=== PATIENT | female | born 1960 | race Caucasian/White ===

== ENCOUNTER 2025-03-22 19:27 | Inpatient (IN) | payer OTHER, MEDICARE, SELFPAY ==
[2025-03-22] VITALS (15 sets, daily range): BP systolic 100–174; BP diastolic 68–100
--- NOTE | 2025-03-22 17:36 | ED.GENMED ---
History of Present Illness
General
Chief Complaint: Change in Mental Status
Source: patient and ambulance crew
Exam Limitations: altered mental status
Time Seen by Provider: 03/22/25 17:32
Nursing documentation reviewed up to this point in time: agreed with
History of Present Illness
History of Present Illness:
Patient presents to the emergency department secondary to mental status change, noted by her friends. Per paramedics, when arrived at scene, patient was lying in her bed, surrounded by her friends. Her friends informed paramedics that patient does
drink daily, sometimes heavily. Last night, she did have alcohol with her friends. During that time, friends told paramedics that she appeared to be more confused. When friends called patient at home, there was no response. Friends came to
patient's house and broken, and that is when they found the patient minimally responsive, lying in her bed. 911 was called at that time. When medics arrived at scene, patient was alert and awake, but confused and not responding appropriately to
any questions and uncooperative. Upon arrival, patient is alert and awake, but moaning, and unable to answer any questions. There is spontaneous upper and lower extremity movement noted.
Review of Systems
Review of Systems
Allergies reviewed?: Yes
Unable to obtain full review of systems at this time due to: due to acuity
All Other Systems: Not applicable
Phy Exam
Physical Exam
Physical Exam:
Physical Exam
General: mil distress, not acutely ill. afebrile. confused, uncooperative
Head: nc/at
Neck: supple. no meningeal signs
Heart: s1/s2 regular rate and rhythm, no murmur
Lungs: no acute respiratory distress. clear bilaterally
Abdomen: normal bowel sounds. no distention
Neuro: alert and awake. spontaneous UE/LE movements noted
Skin: ecchymosis noted over left midback
Psychiatric: uncooperative
Extremities: no edema.
Course
Orders/Labs/Results
Orders:
Orders
03/22/25 Dinner
NPO
Allow oral meds: No
Allow clear liquids: No
03/22/25 17:33
Electrocardiogram (*1) Urgent
Reason for Study: QTc Monitoring
CT Head W/o Iv Contrast Urgent
Comment:
Reason For Exam: mental status change
EKG- Treatment ONCE
Lorazepam [Ativan] 0.5 mg IV NOW STA
03/22/25 17:34
Straight cath- Treatment ONCE
0.9% Sodium Chloride 500 ml [Nss] 500 ml IV BOLUS
03/22/25 17:36
Alcohol Urgent
Complete Blood Count/With Diff Urgent
Comprehensive Metabolic Panel Urgent
Free T4 Urgent
Comment: ADD ON
Magnesium Urgent
PTT Urgent
Prothrombin Time Urgent
TSH Urgent
Restraints - Non Violent As Directed
Justification-Patient:: 2-Protective Intervention
Restraint Type-: Soft Limb-L&R Wrist/4rail
Apply From (date): 03/22/25
Apply from (time): 17:36
Remove (date): 03/23/25
Remove (time): 23:59
03/22/25 17:47
0.9% Sodium Chloride [Nss (Preservative Free)] 0.25 ml IV NOW STA
03/22/25 18:19
COVID-19 Antigen Urgent
Source: Nasal Swab
Influenza A+B Rapid Molecular Urgent
CLAIRE Source: Nasal Swab
Specimen Description:
03/22/25 18:30
3% Sodium Chloride 100 ml [Sodium Chloride 3%] 100 ml IV ONCE
03/22/25 18:35
Potassium Chloride [KCl] 40 meq 0.9% Sodium Chloride 250 ml [Nss] 250 ml IV NOW
03/22/25 18:36
Magnesium Sulfate 1 grams 0.9% Sodium Chloride 100 ml [Nss] 100 ml IV NOW
03/22/25 18:38
CR Chest Portable - 1 View Urgent
Comment:
Reason For Exam: cough/sob/hypoxia
Reason Study Needs to be Portable: Patient Unstable
03/22/25 18:39
Add On- LAB Urgent
Tests Added?: Free T4
03/22/25 18:49
Ammonia Urgent
03/22/25 18:58
Admit/Transfer Patient As Directed
Co-Sign Provider:
Level of Care: Inpatient admission
Assign to:: ICU
Physician / Group: leelee
Diagnosis: hyponatremia
Reason for Hospitalization: hyponatremia
Expected length of stay greater than two midnights?: Yes
ELOS- Estimated Length of Stay in days: 2
I certify the patient meets the requirements for IP care: Yes
Code Status As Directed
Resuscitation Status: Full Code
PRN Pain Medication Management As Directed
May give lesser potent ordered pain med per pt: Yes
preference::
Protocol:: Medication orders for pain may be administered in a
manner that supports deferring to patient preference
when the pt is:
- Requesting an ordered lesser potent pain medication.
Least to most potent pain medications are defined
as: acetaminophen < NSAID < tramadol < opioids
(morphine, oxycodone, hydromorphone).
- Requesting a lesser dose of the same medication IF
ORDERED.
- Requesting a less intrusive route of administration
if both routes are prescribed by the provider (PO <
IV).
03/22/25 19:10
Urinalysis Reflex To Culture Urgent
Date Specimen was Collected: 03/22/25
Time Specimen was Collected: 19:07
Urine Drug Abuse Screen Urgent
Date Specimen was Collected: 03/22/25
Time Specimen was Collected: 19:07
Urine Microscopic Reflex Cult Urgent
Urine Osmolality Random [Osmolality, Random Urine] Urgent
Date Specimen was Collected: 03/22/25
Time Specimen was Collected: 19:08
Urine Sodium Urgent
Date Specimen was Collected: 03/22/25
Time Specimen was Collected: 19:08
03/22/25 19:33
Arterial Blood Gas Urgent
%Oxygen/Room Air: 5L
03/22/25 21:03
0.9% Sodium Chloride [Nss (Preservative Free)] See Protocol IV PRN PRN
FOLic ACID [Folvite] 1 mg 0.9% Sodium Chloride 50 ml [Nss] 50 ml IV DAILYPRN
Lorazepam [Ativan] 1 mg IV Q1HPRN PRN
Lorazepam [Ativan] 1 mg PO Q2HPRN PRN
Lorazepam [Ativan] 2 mg IV Q1HPRN PRN
Thiamine Injection 200 mg IV Q12
03/22/25 21:03
Design Printing Machine Setter Consult Routine
Consulting Provider: Khai Thomas
Was physician already notified: Yes
NEPHROLOGY CONSULT Routine
Consulting Provider: Gerardo Reid
Was physician already notified: Yes
Uric Acid Routine
Activity As Directed
Activity Level: As Tolerated
MSAS SCORE As Directed
MSAS Score 0-4: Repeat MSAS every 2 hours until 0-4 for three consecutive assessments, then every 4 hours x 48
hours.
MSAS Score 5-7: For MILD withdrawl symptoms. Repeat MSAS and RASS every 2 hours
MSAS Score 8-11: For MODERATE withdrawal symptoms. Repeat MSAS and RASS every 1 hour. Consider ICU or IMU
level of care.
MSAS Score > 11: For SEVERE withdrawal symptoms. Repeat MSAS and RASS every 1 hour. Notify provider, consider
ICU level of care.
MSAS Additional Instructions: If no improvement or no decrease in score from severe to moderate within 12
hours, consult psychiatry
MSAS Notify Provider: Notify provider if patient requires more than 10 mg of Lorazepam in eight hour period.
Pneumatic Compression Sleeves As Directed
Type: Knee high
Vital Signs As Directed
Frequency: Per unit guidelines
DX Deep Vein Thrombosis Video Routine
03/23/25 00:00
BMP [Basic Metabolic Panel] Q6
03/23/25 06:00
BMP [Basic Metabolic Panel] Q6
Complete Blood Count/With Diff IN AM
Comprehensive Metabolic Panel IN AM
Cortisol, Random IN AM
03/23/25 08:00
FOLic ACID [Folvite] 1 mg PO DAILY
03/23/25 12:00
BMP [Basic Metabolic Panel] Q6
03/25/25 20:00
Thiamine HCl [Vitamin B1] 100 mg PO BID
Abnormal Lab Results
03/22/25 03/22/25 03/22/25
17:36 18:49 19:10
WBC 11.6 H 10^3/uL
(4.8-10.8)
RBC 3.74 L 10^6/uL
(4.20-5.40)
Hct 36.0 L %
(37.0-47.0)
MCH 38.0 H pg
(27.0-31.0)
MCHC 39.4 H g/dL
(33.0-37.0)
RDW 10.5 L %
(11.5-14.5)
Abs Immat Gran (auto) 0.1 H 10^3/uL
(0-0.05)
Absolute Neuts (auto) 9.9 H 10^3/uL
(1.4-6.5)
Absolute Lymphs (auto) 0.4 L 10^3/uL
(1.2-3.4)
Absolute Monos (auto) 1.2 H 10^3/uL
(0.1-0.6)
Neutrophils % 85.7 H %
(42.2-75.2)
Lymphocytes % 3.4 L %
(20.5-51.1)
Monocytes % 10.3 H %
(1.7-9.3)
Sodium 110 L* mmol/L
(135-145)
Potassium 2.6 L* mmol/L
(3.5-5.1)
Chloride 66 L mmol/L
(98-107)
Glucose 166 H mg/dl
(70-99)
Magnesium 1.4 L mg/dl
(1.6-2.3)
AST 143 H U/L
(14-36)
ALT 68 H U/L
(0-35)
Ammonia < 9 L umol/L
(9-30)
Albumin 5.1 H g/dl
(3.5-5.0)
TSH 0.10 L uIU/ml
(0.47-4.68)
Urine Ketones 3+ A
(Negative)
Ur Occult Blood Reflex 4+ A
(Negative)
Urine Albumin (Reflex) 4+ A
(Neg - Trace)
03/22/25 17:36
03/22/25 17:36
Vital Signs
Initial and Last Documented VS:
Initial Vital Signs
Pulse Resp BP
99 24 129/87
03/22/25 17:29 03/22/25 17:29 03/22/25 17:29
Last Documented Vital Signs
Temp Pulse Resp BP Pulse Ox
97.9 F 94 24 104/71 85
03/22/25 20:59 03/22/25 20:30 03/22/25 20:30 03/22/25 20:00 03/22/25 20:30
MDM/Problems Addressed
MDM/Problems Addressed:
History, exam, and blood work concerning for acute mental status change likely secondary to severe electrolyte abnormalities, i.e. hyponatremia, hypokalemia, hypomagnesemia. 3% hypertonic solution ordered immediately, along with repletion of
potassium and magnesium. Patient will be admitted to ICU for further evaluation and treatment. Patient is high risk for developing seizure and/or worsening mental status.
Nephrology, , notified via [facility]
Critical care statement: A total of 40 minutes of critical care time was provided for this patient. This includes management of unstable vital signs, evaluation of the patient at bedside, reviewing the patient's pertinent medical records, discussion
with consultants, review of old EKGs and review of pertinent medical records. This time with separate from time utilized to perform the aforementioned documented procedures
*EKG
Interpreted by ED Provider?: Yes
EKG Intrepretation Date: 03/22/25
Heart Rate: 91
Rate: normal
Rhythm: sinus
[place]: normal axis
Interval: normal interval
*Critical Care Note
Total Time (30-74mins, 75-104mins- exclusive of procedures): 40 min
ED Attending Note
-
Portions of this chart may have been created with voice recognition software.� Occasional wrong word or��sound alike� substitutions may have occurred due to the inherent limitations of voice recognition software.
Discharge Plan
Departure
Patient Disposition: Admit
Date of Disposition: 03/22/25
Time of Disposition: 18:34
Admit to: ICU
Presentation/result/management discussed w/ accepting MD/DO: Hospitalist
Discharge Problem:
Hyponatremia, Hypokalemia, Altered mental status, Chronic alcoholism
Interventions
Interventions:
*Risk Screen - Suicide Last Done: 03/22/25 21:14
*General Assessment Last Done: 03/22/25 17:57
*Neglect/Abuse Screening Last Done: 03/22/25 17:57
*ED- Fall Risk Assessment Last Done: 03/22/25 17:57
*ED COVID-19 Vaccine History Last Done: 03/22/25 17:57
*Nursing Disposition Last Done: 03/22/25 21:14
ED- Pulmonary Assessment Last Done: 03/22/25 17:57
ED-Psychological Assessment Last Done: 03/22/25 21:15
ED- Neurological Assessment Last Done: 03/22/25 17:57
ED- Cardiac Assessment Last Done: 03/22/25 17:57
ED Swallowing Screen Last Done: 03/22/25 21:16
Discharge Date and Time
Discharge Date/Time: 03/22/25 21:00
[2025-03-22 17:59] LABS: APTT 30.2 Sec (23.4-35.0); INR 1.04; PT 13.9 Sec (11.4-14.6)
[2025-03-22 18:15] LABS: ALT (SGPT) 68 U/L (0-35); AST (SGOT) 143 U/L (14-36); Albumin 5.1 g/dl (3.5-5.0); Alcohol < 10 mg/dl; Alkaline Phosphatase 85 U/L (38-126); Blood Urea Nitrogen 16 mg/dl (7-17); Calcium 9.5 mg/dl (8.4-10.2); Carbon Dioxide 24 mmol/L (22-30); Chloride 66 mmol/L (98-107); Glucose 166 mg/dl (70-99); Magnesium 1.4 mg/dl (1.6-2.3); Potassium 2.6 mmol/L (3.5-5.1); Sodium 110 mmol/L (135-145); Total Bilirubin 0.9 mg/dl (0.2-1.3); Total Protein 7.7 g/dl (6.3-8.2); eGFR > 60.00
[2025-03-22] MEDS: ATIVAN 0.5 MG IV (18:34)
[2025-03-22] MEDS: NSS 500 IV (18:34)
[2025-03-22] MEDS: NSS (PRESERVATIVE FREE) 0.25 ML IV (18:35)
[2025-03-22] MEDS: SODIUM CHLORIDE 3% 100 IV (18:50)
[2025-03-22] MEDS: KCL 270 MEQ IV ×2 (18:56→23:32)
--- NOTE | 2025-03-22 19:07 | HPS.HSE ---
Family Physician
-
Family Physician: INTERVIEWE UNKNOWN - PT NOT
Chief Complaint
-
confusion
History of Present Illness
64-year-old female past medical history of hyperlipidemia, hypertension, anxiety, presenting with change in mental status noted by her friends. Per paramedics when they arrived at the scene she was lying in her bed surrounded by her friends.
Friends told ski top trimmer that she drinks alcohol daily sometimes heavily. Last night she had alcohol. During that time she appeared to be more confused. When friends called patient's home there is no response. Friends came to the patient's house
and they found her minimally responsive laying in her bed. When ski top trimmer arrived she was awake and alert but confused and not responding appropriately to any questions and was uncooperative. She is moaning here unable to answer questions.
Medical History
Past Medical History
Past Medical History: Reports Other (hyperlipidemia, hypertension, anxiety)
Past Surgical History: Reports None
Social History
Tobacco: Non-smoker
Alcohol: None
Drug: None
Family History
Family History: Not pertinent
Allergies / Home Medications
Allergies reflects when Allergies were last updated in [employer].
Home Medications with original date entered in [employer]
Allergy/Medication List:
Allergies
Allergy/AdvReac Type Severity Reaction Status Date / Time
No Known Allergies Allergy Verified 03/22/25 17:40
Review of Systems
-
History Source: Patient
A 12 point ROS was completed and negative except as noted: Yes
Constitutional: Reports No Symptoms
EENT: Reports No Symptoms
Respiratory: Reports No Symptoms
Cardiac: Reports No Symptoms
Abdomen/GI: Reports No Symptoms
: Reports No Symptoms
Musculoskeletal: Reports No Symptoms
Skin: Reports No Symptoms
Neurological: Reports No Symptoms
Endocrine: Reports No Symptoms
Hematologic/Lymphatic: Reports No Symptoms
Psych: Reports No Symptoms
Physical Exam
Vital Signs
Vital Signs
Temp Pulse Resp BP Pulse Ox
99.9 F 89 24 151/100 92
03/22/25 17:57 03/22/25 18:00 03/22/25 18:00 03/22/25 18:00 03/22/25 18:00
Physical Exam
General: Well Developed, Well Nourished and No Apparent Distress
HEENT: NormoCephalic, Moist mucous membranes and Atraumatic
Respiratory: Clear
Cardiac: S1/S2 and Regular Rhythm; No Murmur or Rub
GI: Soft, Non Tender, Non Distended and Normal Bowel Sounds; No Organomegaly
Rectal: Deferred by Provider
Musculoskeletal: No Clubbing, No Cyanosis and No Edema
Skin: No Rash
Neuro: Nonfocal/grossly intact
Laboratory Results
-
03/22/25 17:36
Laboratory Results
PT 13.9 Sec (11.4-14.6) 03/22/25 17:36
INR 1.04 03/22/25 17:36
APTT 30.2 Sec (23.4-35.0) 03/22/25 17:36
Total Bilirubin 0.9 mg/dl (0.2-1.3) 03/22/25 17:36
AST 143 U/L (14-36) H 03/22/25 17:36
ALT 68 U/L (0-35) H 03/22/25 17:36
Alkaline Phosphatase 85 U/L (38-126) 03/22/25 17:36
Data Reviewed
-
Lab Data: Labs Reviewed by me
Old Records: Reviewed
Impression/Plan
-
IMPRESSION:
PLAN:
# Acute metabolic encephalopathy secondary to severe acute hyponatremia likely from alcohol use
-Patient obtunded but spontaneously breathing and maintaining airway, intermittently awakening but not purposeful
-Was given Ativan by ER
- Sodium of 110
Check urine sodium, osmolality, uric acid, a.m. cortisol
-3% hypertonic saline bolus being given, and need to check BMP afterward before further infusion
- Check BMP every 6 hours
- Check ammonia level, ABG
-Check UDS
- CT head pending
- Soft restraints
- Nephrology consulted
- Monitor in ICU due to high risk of seizures
# Hypoxemia unclear etiology
- Patient desaturated to 85% requiring 5 L oxygen
-Patient appears to be maintaining airway
- Check chest x-ray
- Check ABG
# Hypokalemia secondary to hypomagnesia
# Hypomagnesemia secondary to alcohol use
- Replete magnesium and potassium
# Hyperthyroidism
- TSH of 0.01
- Awaiting free T4
- Will likely need to start methimazole when patient eventually awake
# Transaminitis likely secondary to alcohol
- Continue to monitor
Alcohol use disorder
- Alcohol level less than 10
-Thiamine and folate
- Alcohol withdrawal protocol
Essential hypertension
Anxiety
Full code
DVT prophylaxis�SCDs
N.p.o.
[2025-03-22] MEDS: MAGNESIUM SULFATE 102 GRAMS IV (19:11)
[2025-03-22 19:17] LABS: Ammonia < 9 umol/L (9-30)
[2025-03-22 19:21] LABS: Osmolality Urine 535 mOsm/kg (300-900)
[2025-03-22 19:28] LABS: Hemoglobin 14.2 g/dL (12.0-16.0); Mean Corp Hgb Conc. 39.4 g/dL (33.0-37.0); Mean Corpuscular Volume 96.3 fL (81.0-99.0); Red Blood Cell Count 3.74 10^6/uL (4.20-5.40); White Blood Cell Count 11.6 10^3/uL (4.8-10.8)
[2025-03-22 19:28] LABS: Urine Sodium 34 mmol/L (30-90)
[2025-03-22 19:29] LABS: % Basophils 0.2 % (0-2); % Immature Granulocytes 0.4 % (0-0.5); % Lymphocytes 3.4 % (20.5-51.1); % Monocytes 10.3 % (1.7-9.3); % Neutrophils 85.7 % (42.2-75.2); Absolute Lymphocytes 0.4 10^3/uL (1.2-3.4); Absolute Monocytes 1.2 10^3/uL (0.1-0.6); Absolute Neutrophils 9.9 10^3/uL (1.4-6.5); Mean Platelet Volume 10.3 fL (7.4-10.4); Platelet Count 158 10^3/uL (130-400); Red Cell Dist. Width 10.5 % (11.5-14.5)
[2025-03-22 19:30] LABS: Absolute Immature Granulocytes 0.1 10^3/uL (0-0.05); Nucleated Red Blood Cells % 0 %
[2025-03-22 19:34] LABS: Amphetamines Negative (Negative); Barbiturates Negative (Negative); Benzodiazepines Negative (Negative); Buprenorphine Negative (Negative); Cocaine Negative (Negative); Marijuana Negative (Negative); Methadone Negative (Negative); Methamphetamines Negative (Negative); Opiates Negative (Negative); Phencyclidine Negative (Negative); Tricyclic Antidepressants Negative (Negative)
[2025-03-22 19:37] LABS: Urine Albumin 4+ (Neg - Trace); Urine Bilirubin Negative (Negative); Urine Character Clear (Clear); Urine Color Yellow; Urine Glucose Negative (Negative); Urine Ketone 3+ (Negative); Urine Leukocyte Negative (Negative); Urine Nitrite Negative (Negative); Urine Occult Blood 4+ (Negative); Urine Urobilinogen Negative (Neg - 1+)
[2025-03-22 19:44] LABS: B.E. 1.1 mmol/L; HCO3 25.1 mmol/L (21-28); O2 Saturation % 93.5 % (94-98); PCO2 37 mmHg (32-35); PO2 65 mmHg (83-108); pH 7.44 (7.35-7.45)
[2025-03-22 19:46] LABS: COVID-19 Antigen Negative (Negative)
[2025-03-22 20:08] LABS: Free T4 1.97 ng/dl (0.78-2.19)
[2025-03-22 20:19] LABS: Urine Squamous Cell 21-25 /LPF (Few)
[2025-03-22 20:20] LABS: Urine Red Blood Cell None Seen /HPF (0-2)
[2025-03-22 20:56] LABS: Glucose - Point of Care 130 mg/dl (70-99)
[2025-03-22] MEDS: THIAMINE INJECTION 200 MG IV (21:32)
[2025-03-22] MEDS: MAGNESIUM SULFATE 50 IV (21:33)
--- NOTE | 2025-03-22 23:23 | PTCARENOTE ---
~2315: Patient's with increase WOB. RR 25. SpO2 95% on 5L o2/nc. Crackles /inspiratory /expiratory wheezing. HOTEL DINING ROOM CASHIER made aware and are at the bedside to assess the patient. Neb treatment ordered.
--- NOTE | 2025-03-22 23:26 | PTCARENOTE ---
Patient received in room 3368 ~20:40 mumbling and not making sense. Unable to follow simple commands. MAEx4 and restless. The patient reaches for her oxygen and IV sites. Bilateral soft wrist restraints are in use. Sinus rhythm on the monitor. SBP
>100 with MAP > 65. Palpable pulses throughout. Rhonchi with scattered crackles heard with auscultation. SpO2 at 95% on 5L/o2 nc. occasional moist cough-unproductive. + bowel sound. The patient is incontinent of urine. Patient has at 3x4 inch bruise
to her left medial back, and blanchable redness to her gluteal cleft. Patient cleansed with CHG wipes. Pt's sisters are at the bedside. Plan of care for the shift reviewed with family. Questions encouraged and answered. Pert the patient's sister,
the patient has difficulty with swallowing her food and frequently chokes. As such, family states that the patient does not eat. Pt's family states that the patient 'drinks alot.' The family assisted with admission questions. Bed alarm in use.
[2025-03-22] MEDS: DUONEB 3 ML INH (23:27)
[2025-03-22 23:59] LABS: Blood Urea Nitrogen 16 mg/dl (7-17); Calcium 8.6 mg/dl (8.4-10.2); Carbon Dioxide 24 mmol/L (22-30); Chloride 76 mmol/L (98-107); Glucose 111 mg/dl (70-99); Phosphorus 1.9 mg/dl (2.5-4.5); Potassium 3.4 mmol/L (3.5-5.1); Sodium 113 mmol/L (135-145); eGFR > 60.00
[2025-03-23] VITALS (21 sets, daily range): BP systolic 106–160; BP diastolic 74–99
--- NOTE | 2025-03-23 00:09 | PTCARENOTE ---
Patient reassessed. Remains unable to follow commands. Drowsy but opens eyes to verbal commands. Lab resulted. CNA aware of result. Pt's sister, Oly updated via the phone. Second bag of kcl 40 meq rider is infusing.
[2025-03-23] MEDS: DDAVP 50.5 MCG IV ×2 (00:35→11:08)
--- NOTE | 2025-03-23 00:37 | PTCARENOTE ---
Ddavp 2 mcg in NSS ordered for Sodium of 113. Sodium chloride 3% to be initiated post DDAVP at 0200.
--- NOTE | 2025-03-23 01:00 | W.PN.UPDATE ---
Addendum entered and electronically signed by BHAVNA Austin 03/23/25 06:06:
0600- Discussed BMP results with haulpak driver Laurel Felder 118 from 113. Hypertonic saline stopped; recommendations received: D5W IVF bolus 500cc, repeat BMP at 10:00am. Patient now conversing and more alert, no longer obtundent.
Original Note:
Update Note
Progress Note Update
03/23/25-
0000- Discussed BMP results with haulpak driver Laurel Mancilla 113 from 110. Recommendations received: will order 2mcg of DDAVP, 1 hour after DDAVP administration will initiate hypertonic 3% saline solution at 20cc/hr, and follow serial BMPs
trending sodium. Goal of sodium correction in 24 hours on 03/23/25 at 5pm is ~117. Updated RN with orders and plan of care.
[2025-03-23] MEDS: SODIUM CHLORIDE 3% 250 IV (02:28)
--- NOTE | 2025-03-23 04:53 | PTCARENOTE ---
Patient reassessed. drowsy but aaox3. Patient's asking questions regarding whereabouts and reasoning for hospitalization. Patient orient to situations. Medications being administered reviewed with the patient. Pt verbalized concerns for
hypertension. Assured the patient that her blood pressures has been wdl thus far. Labs drawn and sent. VSS on the monitor. Remains on 5L o2 nc.Restraints remain in use.
[2025-03-23 05:55] LABS: ALT (SGPT) 58 U/L (0-35); AST (SGOT) 127 U/L (14-36); Alkaline Phosphatase 69 U/L (38-126); Blood Urea Nitrogen 16 mg/dl (7-17); Calcium 8.7 mg/dl (8.4-10.2); Carbon Dioxide 22 mmol/L (22-30); Chloride 84 mmol/L (98-107); Glucose 103 mg/dl (70-99); Magnesium 2.2 mg/dl (1.6-2.3); Phosphorus 1.5 mg/dl (2.5-4.5); Potassium 3.4 mmol/L (3.5-5.1); Sodium 118 mmol/L (135-145); Total Bilirubin 0.6 mg/dl (0.2-1.3); Total Protein 6.3 g/dl (6.3-8.2); eGFR > 60.00
[2025-03-23 06:09] LABS: Cortisol, Random 41.8 ug/dl
[2025-03-23] MEDS: D5W 500 IV (06:17)
[2025-03-23] MEDS: POTASSIUM PHOSPHATE 259.0909 MEQ IV ×2 (06:30→18:00)
[2025-03-23 06:31] LABS: Hematocrit 33.7 % (37.0-47.0); Hemoglobin 13.4 g/dL (12.0-16.0); Mean Corp Hgb Conc. 39.8 g/dL (33.0-37.0); Mean Corpuscular Hgb 38.1 pg (27.0-31.0); Mean Corpuscular Volume 95.7 fL (81.0-99.0); Red Blood Cell Count 3.52 10^6/uL (4.20-5.40); White Blood Cell Count 10.4 10^3/uL (4.8-10.8)
--- NOTE | 2025-03-23 06:31 | PTCARENOTE ---
Patient's labs resulted. Sodium 118, potassium 3.4, and phosphorus 1.5. D5w 500 ml bolus and potassium phosphate 40 meq rider ordered.
[2025-03-23 06:32] LABS: Mean Platelet Volume 10.1 fL (7.4-10.4); Platelet Count 126 10^3/uL (130-400); Red Cell Dist. Width 10.7 % (11.5-14.5)
[2025-03-23 06:34] LABS: % Basophils 0.2 % (0-2); % Immature Granulocytes 0.4 % (0-0.5); % Lymphocytes 5.5 % (20.5-51.1); % Monocytes 10.5 % (1.7-9.3); % Neutrophils 83.4 % (42.2-75.2); Absolute Lymphocytes 0.6 10^3/uL (1.2-3.4); Absolute Monocytes 1.1 10^3/uL (0.1-0.6); Nucleated Red Blood Cells % 0 %
[2025-03-23] MEDS: FOLVITE 50.2 MG IV (07:42)
[2025-03-23] MEDS: FOLVITE PO (07:42)
[2025-03-23] MEDS: THIAMINE INJECTION 200 MG IV ×2 (07:42→19:39)
--- NOTE | 2025-03-23 08:13 | PTCARENOTE ---
Addendum entered by Kenia Lindquist RN 03/23/25 08:15:
pt able to follow commands and TEJADA.
Original Note:
pt received from previous rn- drowsy, arouses to tactile. able to say name and she's at hospital, disoriented to situation, intermittently answers questions appropriately, confused at times. pt nsr on monitor, 5LNC, pt with nonproductive moist
cough, crackles and wheezes on auscultation. pt reoriented. all safety precautions in place. bed alarm on and functioning. pt turned and repositioned, oral and incontinence care provided.
--- NOTE | 2025-03-23 08:16 | CON.INTV ---
Consultation
Consultation Request
Date/Time Consultation Requested: 03/22/20252102
Date/Time Consultation Performed: 03/23/2025812
Requesting Provider: Dr. Louis
Performing Provider: Dr. Thomas
Reason for Consultation: Hyponatremia
Medical History
-
Chief Complaint: Altered mental status
History of Present Illness:
64-year-old female with a past medical history of alcohol use disorder, hypertension, hypercholesterolemia, former tobacco smoker, anxiety and seasonal allergies who presents with change in mental status. Neighbors were unable to get hold of the
patient since the night prior and she was found in bed incontinent of urine and speaking incoherently. Per the patient's sister, the patient had called UTI this past week. When she was in the ER, she was moaning and unable to answer questions.
Initially, she was afebrile to 99.9 �F, pulse rate 99, respiratory rate 24, BP 129/87 and saturating 91% on 5 L/min nasal cannula. Initial labs were pertinent for WBC 11.6, sodium 110, potassium 2.6, magnesium 1.4, TSH 0.1, free T41.97, and
urinalysis with +3 ketones; UDS was negative, alcohol level was negative and COVID-19 antigen also negative. Flu swab was negative. CT head showed no acute intracranial abnormality, and CXR also showed no acute cardiopulmonary process. In the ER
she was given 500 cc bolus of NS 0.9%, 100cc of 3% NS, magnesium, potassium and Ativan. She was admitted to the ICU for further care and Surgical Scheduler services consulted for additional management/recommendations.
When I saw the patient this morning, she was resting in bed in no acute distress. Heart rate 86, BP 150/99 and saturating 93% on room air. Her 2 sisters, Asya and Oly, were at bedside and also the patient's [id number]. All questions were
answered. Patient lives alone and per the family she drinks daily. She is a functional alcoholic as she has a good job that the patient takes seriously at a [employer]. Patient is currently lethargic but easily arousable to voice and
answers questions with quickly falls back asleep and she is confused.
PMHx: Hypertension, alcohol use disorder, hypercholesterolemia, anxiety, seasonal allergies
PSHx: D&C (1990)
Past Medical History
Past Medical History: Other (Above as per HPI)
Past Surgical History: Other (Above as per HPI)
Social History
Tobacco: Former Smoker
Alcohol: Daily
Drug: None
Employment: Employed (Works at a [employer])
Family History
Family History: CAD (Father), Cancer (Father: Prostate cancer) and Other (Mother: COPD)
Allergies / Home Medications
Allergies
Allergy/AdvReac Type Severity Reaction Status Date / Time
No Known Allergies Allergy Verified 03/22/25 17:40
Home Medications
�Medication �Instructions �Recorded �Confirmed �Last Taken �Type
atenolol 50 mg tablet 100 mg PO DAILY 03/22/25 03/22/25 Unknown History
hydrochlorothiazide 25 mg tablet 25 mg PO DAILY 03/22/25 03/22/25 Unknown History
ondansetron HCl 8 mg tablet 8 mg PO Q8H PRN nausea 03/22/25 03/22/25 Unknown History
paroxetine HCl 10 mg tablet 10 mg PO DAILY 03/22/25 03/22/25 Unknown History
simvastatin 40 mg tablet 40 mg PO QPM 03/22/25 03/22/25 Unknown History
Review of Systems
-
Unable to Obtain full review of systems at this time due to: Acuity
Vitals / Labs / Diagnostic Testing
Vital Signs
Temp Pulse Resp BP Pulse Ox
97.6 F 92 19 137/88 95
03/23/25 07:20 03/23/25 09:00 03/23/25 09:00 03/23/25 09:00 03/23/25 09:00
Lab Data
03/23/25 05:04
Laboratory Results
03/22/25 03/22/25
17:36 19:33
PT 13.9
INR 1.04
APTT 30.2
pH 7.44
pCO2 37 H
pO2 65 L
HCO3 25.1
O2 Delivery Level
Microbiology
03/22/25 18:19 Nasal Swab Influenza Types A & B (JANA) - Final
Negative for Influenza A & B, NAAT
Negative results must be combined with clinical observations
and patient history.
Nucleic Acid Amplification test (NAAT)performed on the
[employer] NOW platform.
Diagnostic Testing:
Physical Exam
-
HEENT: Normocephalic and Anicteric
Cardiovascular: S1/S2 and Peripheral Edema (negative)
Respiratory: Wheeze ([place] upon expiration bilaterally), Rhonchi (negative) and Other (Coarse breath sounds heard bilaterally)
GI: Soft, Non Distended, Non Tender and Normal Bowel Sounds
Neurology: Tremors (negative) and Other (Lethargic although easily arousable to voice and answering questions - confused)
Skin: Warm and Dry
General: Respiratory Distress (negative), Comfortable, Fever (negative) and Chills (negative)
Assessment
-
Assessment: 64-year-old female with a past medical history of alcohol use disorder, hypertension, hypercholesterolemia, former tobacco smoker, anxiety and seasonal allergies who presents with change in mental status. Neighbors were unable to get
hold of the patient since the night prior and she was found in bed incontinent of urine and speaking incoherently. Per the patient's sister, the patient had called UTI this past week. When she was in the ER, she was moaning and unable to answer
questions. Initially, she was afebrile to 99.9 �F, pulse rate 99, respiratory rate 24, BP 129/87 and saturating 91% on 5 L/min nasal cannula. Initial labs were pertinent for WBC 11.6, sodium 110, potassium 2.6, magnesium 1.4, TSH 0.1, free T41.97,
and urinalysis with +3 ketones; UDS was negative, alcohol level was negative and COVID-19 antigen also negative. Flu swab was negative. CT head showed no acute intracranial abnormality, and CXR also showed no acute cardiopulmonary process. In the
ER she was given 500 cc bolus of NS 0.9%, 100cc of 3% NS, magnesium, potassium and Ativan. She was admitted to the ICU for further care and Surgical Scheduler services consulted for additional management/recommendations.
Chronic conditions SUPERINTENDENT OVERHEAD DISTRIBUTION: Hypertension, alcohol use disorder, hypercholesterolemia, anxiety, seasonal allergies
Impression:
#Severe hyponatremia likely due to beer potomania
#Acute thrombocytopenia
#Hypokalemia
#Transaminitis
#Subclinical hyperthyroidism vs central hypothyroidism (more likely the latter given this acute stressful state with severe hyponatremia)
#Starvation ketosis
#Recent URI & UTI (per the family)
#Acute respiratory failure with hypoxia on supplemental oxygen displaced likely due to recent URI in the setting of ?COPD
#Alcohol use disorder
#Former tobacco smoker
Plan:
- Patient's admission sodium was 110 - she was given 3% NS in the ER and also on the social and political studies professor hours of 03/23/2025 --> she is much more awake now than she was on ER arrival
- Continue to slowly correct sodium with goal <8-10mmol/L in 24 hrs, and <14-16mmol/L in 48 hrs
- Given that her Na is 117 today (03/23), nephro is giving dDAVP and starting D5W at 80cc/hr to prevent over-correction
- Continue serial chemistries
- Replete electrolytes with K>3.5, Mg>1.8
- Maintain SpO2 >88% using supplemental oxygen
- Suspected that she has COPD given her tobacco smoking history
- She is currently wheezing and per family she had upper respiratory infection this past week
- No consolidation seen on CXR. WBC is now normal. Continue to monitor off antibiotics however if she spikes a fever then consider starting empiric antibiotics at that time with panculture
- Start scheduled DuoNebs with q4hr prn DuoNebs for breakthrough symptoms
- If wheezing persists and/or hypoxia worsens or fails to improve, then would start systemic steroids at that time
- Recommend outpatient pulmonary office follow-up for full PFTs
- Given the patient's daily alcohol use with risk of withdrawal seizure, start phenobarbital protocol
- Continue MSAS
- Continue thiamine + folic acid
- [facility] should speak with her after mentation normalizes
- Re-check TSH in few days to assure it is improving
- Trend LFTs
- Maintain MAP>65
- Maintain euglycemia with goal BG 140-180; check A1C
- Trend H/H and transfuse if needed to keep Hb>7g/dL; keep plt>20k, unless there is concern for bleeding then keep plt>50k
- DVT ppx: Start LMWH
Continue ICU level of care for this critically ill patient.
Critical care statement: A total of 38 minutes of critical care time was provided for this patient today. This includes management of unstable vital signs, evaluation of the patient at bedside, reviewing the patient's pertinent medical records
including radiographs, microbiology, laboratory evaluations, and discussion with primary team, consultants, pharmacy, nutrition, physical therapy, case management, charge nurse, critical care nursing, and respiratory therapy.
--- NOTE | 2025-03-23 09:37 | CM ---
Received consult for alcohol withdraw risk. Placed a call to patient's sister as patient is not oriented and is not participating with her care at this time. Patient's sister stated that patient lives alone in a one floor apartment, first floor, no
steps to enter. She is independent with all of her ADLs, personal care, bathing and dressing. She can ambulate without device. 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 Patient drives and can get to all of her appointments and does all
of her own shopping. 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 She does have friends and family who are close and supportive neighbors. Her son, Keshav, Nadine is living in [place]
but will be coming in to see patient early this week. His Phone# is [phone]. Per patient's sister he is aware of patient's condition and understands the extent of her ETOH dependance. Per patient's sister, family has tried to intervene in the
past to get patient some help however she denies the severity of her symptoms and has never been in agreement for treatment.
Patient has never had VN services.
Patient has never been to a SNF or rehab center.
Patient has a prescription plan. Will need to confirm pharmacy.
Her PCP information has yet to be obtained.
Patient's sister was advised of resources that may be able to assist with patient and discussed [facility] program which her sister sounded hopeful but not very optimistic. She stated that she would like to talk to patient and her son, once she is able
to be able to discuss her own care. She and patient's son will also speak with her to attempt to get treatment this time.
Plan: Case management will continue to follow and assist with discharge planning. Will connect patient with resources for ETOH.
[2025-03-23 09:40] LABS: Blood Urea Nitrogen 14 mg/dl (7-17); Carbon Dioxide 24 mmol/L (22-30); Chloride 83 mmol/L (98-107); Glucose 131 mg/dl (70-99); Potassium 3.3 mmol/L (3.5-5.1); Sodium 117 mmol/L (135-145); eGFR > 60.00
--- NOTE | 2025-03-23 10:25 | PTCARENOTE ---
Dr. Reid at bedside, plan of care discussed, aware of labs- ordered to insert monzon for I and O, monzon inserted without difficulty, draining yellow urine. Dr. Curiel aware of labs as well. pt turns and repositions. remains forgetful.
--- NOTE | 2025-03-23 10:47 | W.CON.NEPH ---
Consultation
-
Date/Time Consultation Requested: March 22, 2025 at 2100
Date/Time Consultation Performed: March 23, 2025 at 9 AM
Requesting Provider: Dr. Louis
Performing Provider: Dr. Reid
Reason for Consultation: Hyponatremia
Medical History
-
Chief Complaint: Hyponatremia
History of Present Illness:
64-year-old female past medical history of hyperlipidemia, hypertension, anxiety, presenting with change in mental status noted by her friends. Per paramedics when they arrived at the scene she was lying in her bed surrounded by her friends.
Friends told crate tier that she drinks alcohol daily sometimes heavily. Last night she had alcohol. During that time she appeared to be more confused. When friends called patient's home there is no response. Friends came to the patient's house
and they found her minimally responsive laying in her bed.
Renal consult for symptomatic hyponatremia of 110
Given 3% saline mental status has improved
Past Medical History
Hyperlipidemia, hypertension, anxiety, alcohol abuse
Social History
Alcohol: Chronic Alcoholic
Family History
Family History: Not Pertinent
Allergies / Home Medications
Allergy/AdvReac Type Severity Reaction Status Date / Time
No Known Allergies Allergy Verified 03/22/25 17:40
�Medication �Instructions �Recorded �Confirmed �Type
atenolol 50 mg tablet 100 mg PO DAILY 03/22/25 03/22/25 History
hydrochlorothiazide 25 mg tablet 25 mg PO DAILY 03/22/25 03/22/25 History
ondansetron HCl 8 mg tablet 8 mg PO Q8H PRN nausea 03/22/25 03/22/25 History
paroxetine HCl 10 mg tablet 10 mg PO DAILY 03/22/25 03/22/25 History
simvastatin 40 mg tablet 40 mg PO QPM 03/22/25 03/22/25 History
Review of Systems
-
Lethargic but awake has no complaint
All other systems: Negative unless noted
Physical Exam
Vital Signs
Vital Signs
Temp Pulse Resp BP Pulse Ox
97.6 F 92 19 137/88 95
03/23/25 07:20 03/23/25 09:00 03/23/25 09:00 03/23/25 09:00 03/23/25 09:00
Lab Results
WBC 10.4 10^3/uL (4.8-10.8) 03/23/25 05:04
RBC 3.52 10^6/uL (4.20-5.40) L 03/23/25 05:04
Hgb 13.4 g/dL (12.0-16.0) 03/23/25 05:04
Hct 33.7 % (37.0-47.0) L 03/23/25 05:04
Plt Count 126 10^3/uL (130-400) L D 03/23/25 05:04
eGFR Cancelled 03/23/25 12:00
Phosphorus 1.5 mg/dl (2.5-4.5) L 03/23/25 05:04
Albumin 4.0 g/dl (3.5-5.0) 03/23/25 05:04
Physical Exam
General no acute distress
HEENT no cephalic atraumatic extraocular muscle intact no scleral icterus no JVD neck supple
lungs clear to auscultation bilateral
heart regular S1-S2 positive
abdomen soft nontender positive bowel sounds
extremities no edema pulses present bilateral
Neurologically nonfocal
Skin no lesions no abrasions no petechiae
Psych flat
Data Reviewed
-
Radiology: Image Personally Visualized and interpreted
Labs: Labs Reviewed by me, Discussed with Physician and Discussed with Patient
Assessment/Plan
-
64-year-old female past medical history of hyperlipidemia, hypertension, anxiety, presenting with change in mental status noted by her friends. Per paramedics when they arrived at the scene she was lying in her bed surrounded by her friends.
Friends told crate tier that she drinks alcohol daily sometimes heavily. Last night she had alcohol. During that time she appeared to be more confused. When friends called patient's home there is no response. Friends came to the patient's house
and they found her minimally responsive laying in her bed.
Hyponatremia 110
Impression.
Severe hyponatremia 110 secondary to alcohol abuse
Hypokalemia
Altered mental status
Alcohol abuse
Hypertension
Plan
Admitting sodium 110 at 5 PM 03/22/2025
Sodium 117 at 9 AM 03/23/2025
DDAVP given 11 PM on 03/22/2025
Will dose DDAVP again today
D5W slow infusion at 60 cc/h
Maximum goal of correction 6-8 millimoles per liter over the first 24-hour (5 PM 03/23/2025)
Patient at high risk for ODS
Continue BMPs every 4 hours
Discussed with critical care nursing as to plan

45-minute spent in critical time
[2025-03-23] MEDS: D5W 1000 IV (11:08)
--- NOTE | 2025-03-23 11:15 | W.PN.HOSP.TC ---
Today's Communication/Plan
-
continue IVF supplement
Nephrology managing fluid replacement
diet to start once more awake
Assessment / Plan
Assessment / Plan
# Acute metabolic encephalopathy secondary to severe acute hyponatremia likely from alcohol use
-Patient currently awake (was noted to be obtunded on admission)
-Was given Ativan by ER
- Sodium of 110-->113-->118-->117
nephrology in consult
Uric Acid 9.0
-3% hypertonic saline bolus was given, now on D5W as per nephrology
- Check BMP every 6 hours
- Check ammonia level, ABG
-Check UDS
- CT head: No acute intracranial abnormality noted.
- Soft restraints
- Monitor in ICU due to high risk of seizures
# Hypoxemia unclear etiology
- Patient desaturated to 85% requiring 5 L oxygen
-Patient appears to be maintaining airway
- chest x-ray: No acute cardiopulmonary process.
- ABG: PCO2 37/pO2 65
# Hypokalemia secondary to hypomagnesia
# Hypomagnesemia secondary to alcohol use
- Replete magnesium and potassium
# Hyperthyroidism
- TSH of 0.1
- free T4 1.97
- Consider starting methimazole when patient eventually awake
# Transaminitis likely secondary to alcohol
- Continue to monitor
Alcohol use disorder
- Alcohol level less than 10
-Thiamine and folate
- Alcohol withdrawal protocol
Essential hypertension
Anxiety
Full code
DVT prophylaxis�SCDs
N.p.o. resume diet when pt more awake
Anticipated Discharge: > 48 hours
Subjective/Interval History
-
Date of Service: March 23, 2025
No obvious distress
Objective Data
-
Labs:
Laboratory Results
05/02/1103/23/25 03/23/25
23:19 05:04 05:04
WBC 10.4
Hgb 13.4
Hct 33.7 L
Plt Count 126 L D
Sodium 113 L* Cancelled 118 L*
Potassium 3.4 L D Cancelled
Chloride 76 L
Carbon Dioxide 24
BUN 16
Creatinine 0.5 L
Glucose 111 H
Calcium 8.6
Total Bilirubin
AST
ALT
Alkaline Phosphatase
03/23/25 03/23/25 03/23/25
05:04 05:04 05:04
WBC
Hgb
Hct
Plt Count
Sodium
Potassium 3.4 L
Chloride Cancelled 84 L
Carbon Dioxide Cancelled 22
BUN Cancelled
Creatinine
Glucose
Calcium
Total Bilirubin
AST
ALT
Alkaline Phosphatase
03/23/25 03/23/25 03/23/25
05:04 05:04 05:04
WBC
Hgb
Hct
Plt Count
Sodium
Potassium
Chloride
Carbon Dioxide
BUN 16
Creatinine Cancelled 0.5 L
Glucose Cancelled 103 H
Calcium Cancelled
Total Bilirubin
AST
ALT
Alkaline Phosphatase
03/23/25 03/23/25 03/23/25
05:04 09:18 12:00
WBC
Hgb
Hct
Plt Count
Sodium 117 L* Cancelled
Potassium 3.3 L Cancelled
Chloride 83 L Cancelled
Carbon Dioxide 24 Cancelled
BUN 14 Cancelled
Creatinine 0.4 L Cancelled
Glucose 131 H Cancelled
Calcium 8.7 8.0 L Cancelled
Total Bilirubin 0.6
AST 127 H
ALT 58 H
Alkaline Phosphatase 69
05/04/25 05/04/25 05/04/25
14:00 18:00 22:00
WBC
Hgb
Hct
Plt Count
Sodium Pending Pending Pending
Potassium Pending Pending Pending
Chloride Pending Pending Pending
Carbon Dioxide Pending Pending Pending
BUN Pending Pending Pending
Creatinine Pending Pending Pending
Glucose Pending Pending Pending
Calcium Pending Pending Pending
Total Bilirubin
AST
ALT
Alkaline Phosphatase
Vital Signs:
Vital Signs
Temp Pulse Resp BP Pulse Ox
97.6 F 92 19 137/88 95
03/23/25 07:20 03/23/25 09:00 03/23/25 09:00 03/23/25 09:00 03/23/25 09:00
I&O
03/22/25 03/23/25 03/24/25
06:59 06:59 06:59
Intake Total 720.5 / 785.2 258.8 / 258.8
Output Total 225 / 225
Balance 720.5 / 785.2 33.8 / 33.8
Review of Systems
-
History Source: Coordinated Provider
Constitutional: Denies Fever
EENT: Reports No Symptoms Reported
Respiratory: Reports No Symptoms
Cardiac: Reports No Symptoms
Abdomen/GI: Reports No Symptoms
Neuro: Reports Weakness
Physical Exam
-
General: Well Developed, Well Nourished, No Apparent Distress and Appears Chronically Ill
HEENT: Normocephalic, Atraumatic and Moist Mucous Membranes
Respiratory: Clear to Auscultation; Negative Wheezes, Rales or Rhonchi
Cardiac: Regular Rhythm and S1/S2
GI: Soft, Nontender and Nondistended
Musculoskeletal: No Clubbing, No Cyanosis and No Edema
Neuro: Awake and Alert; Negative Oriented
Psych: Confused
--- NOTE | 2025-03-23 12:02 | PTCARENOTE ---
pt more alert, family at bedside and updated. assessment unchanged. plan of care discussed with Dr. Thomas.
[2025-03-23] MEDS: PHENOBARBITAL 104 MG IV (13:24)
[2025-03-23 13:33] LABS: Magnesium 1.7 mg/dl (1.6-2.3); Phosphorus 2.4 mg/dl (2.5-4.5)
[2025-03-23 13:36] LABS: Blood Urea Nitrogen 12 mg/dl (7-17); Calcium 7.9 mg/dl (8.4-10.2); Carbon Dioxide 22 mmol/L (22-30); Chloride 83 mmol/L (98-107); Glucose 131 mg/dl (70-99); Potassium 3.1 mmol/L (3.5-5.1); Sodium 118 mmol/L (135-145); eGFR > 60.00
--- NOTE | 2025-03-23 13:53 | CHAP ---
Visited Ms. Hammonds at 10:25. She smiled briefly, did not respond when asked how she was doing. Family declined prayer. Pastoral Care remains available as needed.
[2025-03-23] MEDS: DUONEB 3 ML INH ×2 (14:04→20:15)
[2025-03-23] MEDS: KCL 270 MEQ IV ×2 (14:24→19:53)
--- NOTE | 2025-03-23 14:30 | PTCARENOTE ---
Dr. Reid and Dr. Thomas aware of afternoon lab results- see mar.
[2025-03-23] MEDS: NSS (PRESERVATIVE FREE) 0.5 ML IV (16:12)
[2025-03-23] MEDS: ATIVAN 1 MG IV ×2 (16:12→20:39)
--- NOTE | 2025-03-23 16:17 | PTCARENOTE ---
pt seen by speech therapist, see note. msas 5, ativan given per order. pt turning and repositioning self. assessment unchanged further.
--- NOTE | 2025-03-23 16:46 | PTOTSP ---
Speech Pathology
Clinical Swallow Evaluation
64F with admission for ASHA 2/2 severe acute hyponatremia likely from alcohol use presents with s/s concerning for acute oropharyngeal dysphagia. Limited PO trials this date due to poor oral acceptance. Wet vocal quality observed with thin liquids.
Concern for aspiration (top-down and bottom-up) given pt endorsement of coughing with PO and history of previous esophageal dilations.
Recommend:
1. Strict NPO
2. Essential meds crushed in puree
3. Not appropriate for ARHP at this time due to lethargy
4. HEARING THERAPY TEACHER service to follow up re: to assess for readiness for PO; provide dysphagia tx at the acute care level PRN; consider VSE if difficulties persist
[2025-03-23] MEDS: LOVENOX 30 MG SC (18:01)
[2025-03-23 18:59] LABS: Blood Urea Nitrogen 11 mg/dl (7-17); Calcium 8.3 mg/dl (8.4-10.2); Carbon Dioxide 25 mmol/L (22-30); Chloride 83 mmol/L (98-107); Glucose 192 mg/dl (70-99); Potassium 3.2 mmol/L (3.5-5.1); Sodium 116 mmol/L (135-145); eGFR > 60.00
--- NOTE | 2025-03-23 19:20 | PTCARENOTE ---
Dr. Reid notified via TT of labs. Brandi navarrete aware of labs as well, see mar. report given to offgoing rn.
--- NOTE | 2025-03-23 19:21 | PTCARENOTE ---
report given to offgoing rn. bere navarrete aware of labs.
[2025-03-23] MEDS: MAGNESIUM SULFATE 50 IV (19:39)
--- NOTE | 2025-03-23 20:00 | PTCARENOTE ---
rec`d pt at 1900 drowsy and tachycardic. AAOx1 to self. knew she is in the hospital but unsure which one. MSAS to give PRN Ativan. SCDs. afebrile. 5L NC. moist cough, crackles, wheezing. Neb given. NPO. monzon draining dark meme urine. PIVS flushed
and patent. safe environment maintained. call ivy in reach.
[2025-03-23] MEDS: PULMICORT 0.5 MG INH (20:15)
--- NOTE | 2025-03-23 20:33 | PTCARENOTE ---
D5 stopped per NephDR. Franklin garner.
--- NOTE | 2025-03-23 20:34 | PTCARENOTE ---
Spoke and updated to pt`s sister- Olybarbara Martin.
[2025-03-23] MEDS: PHENOBARBITAL 97.5 MG IV (21:58)
[2025-03-23 23:15] LABS: Blood Urea Nitrogen 9 mg/dl (7-17); Calcium 7.8 mg/dl (8.4-10.2); Carbon Dioxide 24 mmol/L (22-30); Chloride 86 mmol/L (98-107); Estimated Creatinine Clearance 76 ml/min; Glucose 123 mg/dl (70-99); Potassium 4.1 mmol/L (3.5-5.1); Sodium 117 mmol/L (135-145); eGFR > 60.00
[2025-03-24] VITALS (47 sets, daily range): BP systolic 78–164; BP diastolic 55–108; BMI 19.7
[2025-03-24] MEDS: ATIVAN 1 MG IV (00:28)
--- NOTE | 2025-03-24 01:00 | PTCARENOTE ---
nephro, DR. Reid, aware via TT of sodium of 117. repeat labs at 0200.
[2025-03-24 02:15] LABS: % Basophils 0.2 % (0-2); % Eosinophils 0.1 % (0-6); % Immature Granulocytes 0.6 % (0-0.5); % Lymphocytes 7.2 % (20.5-51.1); % Monocytes 13.8 % (1.7-9.3); % Neutrophils 78.1 % (42.2-75.2); Absolute Immature Granulocytes 0.1 10^3/uL (0-0.05); Absolute Lymphocytes 0.7 10^3/uL (1.2-3.4); Absolute Monocytes 1.3 10^3/uL (0.1-0.6); Absolute Neutrophils 7.1 10^3/uL (1.4-6.5); Hematocrit 33.8 % (37.0-47.0); Hemoglobin 12.6 g/dL (12.0-16.0); Mean Corp Hgb Conc. 37.3 g/dL (33.0-37.0); Mean Corpuscular Hgb 37.5 pg (27.0-31.0); Mean Corpuscular Volume 100.6 fL (81.0-99.0); Mean Platelet Volume 9.6 fL (7.4-10.4); Nucleated Red Blood Cells % 0 %; Platelet Count 142 10^3/uL (130-400); Red Blood Cell Count 3.36 10^6/uL (4.20-5.40); Red Cell Dist. Width 11.2 % (11.5-14.5); White Blood Cell Count 9.1 10^3/uL (4.8-10.8)
[2025-03-24] MEDS: SODIUM CHLORIDE 3% 250 IV (02:15)
--- NOTE | 2025-03-24 02:52 | W.PN.UPDATE ---
Update Note
Progress Note Update
03/24/25
010- Discussed BMP results with Dr. Reid, medical cash poster. Plan is to repeat BMP at 0200 and start hypertonic saline 3% at 20mls/hr. Continue to trend Na with serial BMPs.
[2025-03-24 03:19] LABS: ALT (SGPT) 54 U/L (0-35); AST (SGOT) 101 U/L (14-36); Albumin 3.9 g/dl (3.5-5.0); Alkaline Phosphatase 66 U/L (38-126); Blood Urea Nitrogen 9 mg/dl (7-17); Calcium 8.1 mg/dl (8.4-10.2); Carbon Dioxide 21 mmol/L (22-30); Chloride 88 mmol/L (98-107); Direct Bilirubin 0.4 mg/dl (0.0-0.4); Estimated Creatinine Clearance 76 ml/min; Glucose 115 mg/dl (70-99); Phosphorus 2.6 mg/dl (2.5-4.5); Potassium 3.9 mmol/L (3.5-5.1); Sodium 118 mmol/L (135-145); Total Bilirubin 0.7 mg/dl (0.2-1.3); eGFR > 60.00
[2025-03-24] MEDS: VENTOLIN NEBULES 2.5 MG INH (05:44)
[2025-03-24 06:21] LABS: Blood Urea Nitrogen 9 mg/dl (7-17); Calcium 8.2 mg/dl (8.4-10.2); Carbon Dioxide 22 mmol/L (22-30); Chloride 89 mmol/L (98-107); Estimated Creatinine Clearance 76 ml/min; Glucose 111 mg/dl (70-99); Potassium 3.9 mmol/L (3.5-5.1); Sodium 121 mmol/L (135-145); eGFR > 60.00
[2025-03-24] MEDS: DUONEB 3 ML INH ×4 (07:48→20:18)
[2025-03-24] MEDS: PHENOBARBITAL IV (08:00)
[2025-03-24] MEDS: FOLVITE PO (08:01)
[2025-03-24] MEDS: FOLVITE 50.2 MG IV (08:08)
[2025-03-24] MEDS: THIAMINE INJECTION 200 MG IV (08:08)
--- NOTE | 2025-03-24 08:15 | PTCARENOTE ---
pt received this am lethargic, arouses to name and tactile, able to tell me her name and she's at the hospital, not answering other questions. pt sinus tach, expiratory wheezes and crackles on auscultation, remains on 5LNC. Dr. Falcon aware. am care
provided, oral care. monzon draining yellow urine. all safety precautions in place, bed alarm on, call ivy within reach.
--- NOTE | 2025-03-24 08:29 | W.PN.NEPH.PH ---
Today's Communication / Plan
-
hold 3%
Assessment/Plan
-
64-year-old female past medical history of hyperlipidemia, hypertension, anxiety, presenting with change in mental status noted by her friends. Per paramedics when they arrived at the scene she was lying in her bed surrounded by her friends.
Friends told amusement park worker that she drinks alcohol daily sometimes heavily. Last night she had alcohol. During that time she appeared to be more confused. When friends called patient's home there is no response. Friends came to the patient's house
and they found her minimally responsive laying in her bed.
Hyponatremia 110
Impression.
Severe hyponatremia 110 secondary to alcohol abuse
Hypokalemia
Altered mental status
Alcohol abuse
Hypertension
Plan
no additional 3%NaCl
serial BMP
continue only very slow actice correction
repeat urine studies
-
-
Date of Service: March 24, 2025
CC / HPI / ROS
-
Chief Complaint:
hyponatremia
History of Present Illness:
Na up to 121 with 3%NaCl
BP stable
K and Phos normal on repletion
critically ill in ICU
Review of Systems:
minimally responsive
tries to follow commands
Labs
-
Labs:
WBC 9.1 10^3/uL (4.8-10.8) 03/24/25 02:03
RBC 3.36 10^6/uL (4.20-5.40) L 03/24/25 02:03
Hgb 12.6 g/dL (12.0-16.0) 03/24/25 02:03
Hct 33.8 % (37.0-47.0) L 03/24/25 02:03
Plt Count 142 10^3/uL (130-400) 03/24/25 02:03
Sodium 121 mmol/L (135-145) L 03/24/25 05:38
Potassium 3.9 mmol/L (3.5-5.1) 03/24/25 05:38
Chloride 89 mmol/L (98-107) L 03/24/25 05:38
Carbon Dioxide 22 mmol/L (22-30) 03/24/25 05:38
BUN 9 mg/dl (7-17) 03/24/25 05:38
Creatinine 0.3 mg/dL (0.6-1.0) L 03/24/25 05:38
eGFR > 60.00 03/24/25 05:38
Glucose 111 mg/dl (70-99) H 03/24/25 05:38
Calcium 8.2 mg/dl (8.4-10.2) L 03/24/25 05:38
Phosphorus 2.6 mg/dl (2.5-4.5) 03/24/25 02:03
Albumin 3.9 g/dl (3.5-5.0) 03/24/25 02:03
Physical Exam
-
Vital Signs:
Vital Signs
Temp Pulse Resp BP Pulse Ox
97.5 F 116 22 129/89 95
03/24/25 07:30 03/24/25 07:51 03/24/25 07:51 03/24/25 07:00 03/24/25 07:51
Cardiovascular:: Regular rate and rhythm
Respiratory:: Bilateral: Coarse
Lung Excursion:: Normal
Abdomen:: Nontender and Soft
Bowel Sounds:: Normal
Extremity Edema:: None: Bilateral:
[2025-03-24] MEDS: PULMICORT 0.5 MG INH (08:34)
--- NOTE | 2025-03-24 08:40 | W.PN.HOSP.TC ---
Today's Communication/Plan
-
Mech vent. Electrolytes replacement.
Assessment / Plan
Assessment / Plan
Physical exam:
General: Acutely ill
HEENT: Normocephalic, Atraumatic and Moist Mucous Membranes
Respiratory: Clear to Auscultation; Negative Wheezes, Rales or Rhonchi
Cardiac: Regular Rhythm and S1/S2
GI: Soft, Nontender and Nondistended
Musculoskeletal: No Clubbing, No Cyanosis and No Edema
Neuro: Sedated on the vent
Psych: Calm
A/P:
Acute respiratory failure:
S/p intubation today on 03/24 due to inability to protect airway
Continue mechanical ventilation
Acute metabolic encephalopathy:
Likely alcohol related but also r/o thyrotoxic PP and or myopathy
r/o seizures
r/o other etiologies
monitor mental status with sedation vacation
Severe hyponatremia:
Has been on 3% saline and now off
Nephrology on board
Monitor closely
If rapid correction needs hypotonic or vasopressin
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
High suspicious in the setting of paralytic attack and hypokalemia and hyperthyroidism
Replete K
Consider IV Propranolol
Suspect COPD exacerbation:
Pulm started on IV steroids and abx
Will need PFT when recover from acute illness
Alcohol use disorder:
On MSA protocol
On thiamine and folate
Hypokalemia and hypomagnesia
Replete magnesium and potassium
Probable Hyperthyroidism
- Suspected thyrotoxicosis PP as above
- TSH of 0.1
- free T4 1.97
- Consider starting methimazole when able to do use enteral route but might repeat TFT as well
Transaminitis likely secondary to alcohol
- Continue to monitor
DVT prophylaxis:
SCDs
Code status:
Full code
Total Critical Care Time_55____ minutes. I was immediately available to the patient and staff. I personally examined, reviewed labs, diagnostic images/reports, interpretations, treatment plans, discussed patient care with other providers and
family or caregivers (if patient is unable to make decisions), entered orders as appropriate and documented the medical record.
Anticipated Discharge: > 48 hours
Subjective/Interval History
-
Date of Service: March 24, 2025
On the vent. Afebrile.
Objective Data
-
Labs:
Laboratory Results
03/23/25 03/24/25 03/24/25
22:37 02:03 02:03
WBC 9.1
Hgb 12.6
Hct 33.8 L
Plt Count 142
HCO3
Sodium 117 L* 118 L* Cancelled
Potassium 4.1 D 3.9
Chloride 86 L
Carbon Dioxide 24
BUN 9
Creatinine 0.4 L
Glucose 123 H
Calcium 7.8 L
Total Bilirubin
AST
ALT
Alkaline Phosphatase
03/24/25 03/24/25 03/24/25
02:03 02:03 02:03
WBC
Hgb
Hct
Plt Count
HCO3
Sodium
Potassium Cancelled
Chloride 88 L Cancelled
Carbon Dioxide 21 L Cancelled
BUN 9
Creatinine
Glucose
Calcium
Total Bilirubin
AST
ALT
Alkaline Phosphatase
03/24/25 03/24/25 03/24/25
02:03 02:03 02:03
WBC
Hgb
Hct
Plt Count
HCO3
Sodium
Potassium
Chloride
Carbon Dioxide
BUN Cancelled
Creatinine 0.3 L Cancelled
Glucose 115 H Cancelled
Calcium 8.1 L
Total Bilirubin
AST
ALT
Alkaline Phosphatase
03/24/25 03/24/25 03/24/25
02:03 05:38 08:30
WBC
Hgb
Hct
Plt Count
HCO3 Pending
Sodium 121 L
Potassium 3.9
Chloride 89 L
Carbon Dioxide 22
BUN 9
Creatinine 0.3 L
Glucose 111 H
Calcium Cancelled 8.2 L
Total Bilirubin 0.7
AST 101 H
ALT 54 H
Alkaline Phosphatase 66
03/24/25
09:00
WBC
Hgb
Hct
Plt Count
HCO3
Sodium Pending
Potassium Pending
Chloride Pending
Carbon Dioxide Pending
BUN Pending
Creatinine Pending
Glucose Pending
Calcium Pending
Total Bilirubin
AST
ALT
Alkaline Phosphatase
Vital Signs:
Vital Signs
Temp Pulse Resp BP Pulse Ox
97.5 F 116 22 129/89 95
03/24/25 07:30 03/24/25 07:51 03/24/25 07:51 03/24/25 07:00 03/24/25 07:51
I&O
03/23/25 03/24/25 03/25/25
06:59 06:59 06:59
Intake Total 720.5 / 785.2 1466.3 / 1466.3
Output Total 1280 / 1280 60 / 60
Balance 720.5 / 785.2 186.3 / 186.3 -40 / -40
[2025-03-24 08:47] LABS: B.E. -2.9 mmol/L; O2 Saturation % 99.7 % (94-98); PCO2 38 mmHg (32-35); PO2 215 mmHg (83-108); pH 7.37 (7.35-7.45)
[2025-03-24 08:59] LABS: Urine Albumin 2+ (Neg - Trace); Urine Bilirubin Negative (Negative); Urine Character Slightly Cloudy (Clear); Urine Color Yellow; Urine Glucose Negative (Negative); Urine Ketone 3+ (Negative); Urine Leukocyte Negative (Negative); Urine Nitrite Negative (Negative); Urine Occult Blood 4+ (Negative); Urine Urobilinogen 1+ (Neg - 1+)
[2025-03-24] MEDS: SUBLIMAZE 50 MCG IV ×5 (09:09→19:35)
[2025-03-24 09:40] LABS: Urine Bacteria Few (Negative); Urine Squamous Cell 0-2 /LPF (Few); Urine White Cell 0-2 /HPF (0-5)
[2025-03-24 09:43] LABS: Osmolality Urine 405 mOsm/kg (300-900)
[2025-03-24] MEDS: DIPRIVAN 100 IV (09:45)
[2025-03-24 09:47] LABS: Urine Sodium 70 mmol/L (30-90)
[2025-03-24] MEDS: SOLU-MEDROL PF 60 MG IV (09:48)
[2025-03-24 10:19] LABS: Glycohemoglobin (HgbA1c) 5.6 % (4.0-5.6)
--- NOTE | 2025-03-24 10:28 | PTCARENOTE ---
0830- Dr. Falcon at bedside, stat abg drawn, pt moaning to tactile and name, remains tachy. 3% saline off per Dr. Mccullough order.
0850- Dr. Falcon made decision to intubate pt- pt intubated with 7.5 ett 23 at lip. ogt inserted at 65cm, auscultated, xray ordered.
0900- pt taken to stat ct head. cxr completed.
see jan. pt started on low dose propofol infusion. pt HR improved- 90s. labs sent as per order. sister Oly updated.
--- NOTE | 2025-03-24 10:45 | PTCARENOTE ---
0830- Dr. Falcon at bedside, stat abg drawn, pt moaning to tactile and name, remains tachy. 3% saline off per Dr. Mccullough order.
0850- Dr. Falcon made decision to intubate pt- pt intubated with 7.5 ett 23 at lip. ogt inserted at 60cm auscultated, xray ordered.
0900- pt taken to stat ct head. cxr completed.
see jan. pt started on low dose propofol infusion. pt HR improved- 90s. labs sent as per order. sister Oly updated.
[2025-03-24 10:55] LABS: Triglycerides 81 mg/dl (10-149)
[2025-03-24 10:56] LABS: Blood Urea Nitrogen 8 mg/dl (7-17); Calcium 7.3 mg/dl (8.4-10.2); Carbon Dioxide 21 mmol/L (22-30); Chloride 95 mmol/L (98-107); Estimated Creatinine Clearance 76 ml/min; Glucose 120 mg/dl (70-99); Potassium 3.2 mmol/L (3.5-5.1); Sodium 125 mmol/L (135-145); eGFR > 60.00
[2025-03-24 11:17] LABS: B.E. -2.2 mmol/L; HCO3 23.7 mmol/L (21-28); PCO2 44 mmHg (32-35); PO2 383 mmHg (83-108); pH 7.34 (7.35-7.45)
[2025-03-24] MEDS: DDAVP 50.5 MCG IV (11:40)
[2025-03-24] MEDS: KCL ELIXIR 40 MEQ TUBE (11:55)
--- NOTE | 2025-03-24 12:23 | PTCARENOTE ---
assessment unchanged. turned and repositioned, oral care provided.
[2025-03-24] MEDS: PRECEDEX 100 IV (12:50)
--- NOTE | 2025-03-24 13:10 | PTCARENOTE ---
precedex started, propofol off. prn fentanyl given for cpot per order. ekg completed.
--- NOTE | 2025-03-24 13:33 | OR.RPT ---
Operative Report
Operative Report
Rapid sequence intubation
Indication. Unresponsive, unable to protect airways (emergent procedure)
Pre-medications: None
Patient was placed in supine position. Nonrebreather was used to preoxygenate, subsequently [id number] ventilation was used, pre-intubation O2 sat 100%. 20 mg of Etomidate was given as an induction agent followed by 50 mg of Rocuronium as
paralytic. GlideScope was used, blade size #3, grade 1 view of vocal cords was obtained and ET tube, 7.5, was advanced under direct visualization without any difficulty. Color change was confirmed and patient was bagged briefly and subsequently
patient was connected to ventilator. Bilateral good air entry noted. Tube was secured at 23 cm at the teeth. Patient tolerated the procedure well.
Time spent: 25 min
Complications: None
Date of Service: 03/24/2025
--- NOTE | 2025-03-24 13:35 | W.PN.INTV ---
Today's Communication / Plan
Recommendations
- Patient emergently intubated for airway protection
- Discontinue phenobarbital, minimize sedation
- Check ammonia level, EEG, neurology consult
- Increase thiamine 500 mg IV every 8 hours
- Initiate Solu-Medrol, increase DuoNeb to 4 times daily and add azithromycin for COPD
- DDAVP, 1 dose as well as initiate D5 infusion to prevent further rise of sodium, BMP every 4 hours
Assessment
-
Assessment: 64-year-old female with a past medical history of alcohol use disorder, hypertension, hypercholesterolemia, former tobacco smoker, anxiety and seasonal allergies who presents with change in mental status. Neighbors were unable to get
hold of the patient since the night prior and she was found in bed incontinent of urine and speaking incoherently. Per the patient's sister, the patient had called UTI this past week. When she was in the ER, she was moaning and unable to answer
questions. Initially, she was afebrile to 99.9 �F, pulse rate 99, respiratory rate 24, BP 129/87 and saturating 91% on 5 L/min nasal cannula. Initial labs were pertinent for WBC 11.6, sodium 110, potassium 2.6, magnesium 1.4, TSH 0.1, free T41.97,
and urinalysis with +3 ketones; UDS was negative, alcohol level was negative and COVID-19 antigen also negative. Flu swab was negative. CT head showed no acute intracranial abnormality, and CXR also showed no acute cardiopulmonary process. In the
ER she was given 500 cc bolus of NS 0.9%, 100cc of 3% NS, magnesium, potassium and Ativan. She was admitted to the ICU for further care and [facility] services consulted for additional management/recommendations.
03/24, patient was evaluated in the morning, noted to be unresponsive. There was minimal response to sternal rub. She had rattling secretions in her upper airways and was not able to protect her airway requiring emergent intubation and mechanical
ventilation. Patient also noted to have bilateral wheezing on exam.
Chronic conditions [employer]: Hypertension, alcohol use disorder, hypercholesterolemia, anxiety, seasonal allergies
Assessment and plan:
#1. Acute respiratory failure due to inability to protect airway.
-Patient emergently intubated and mechanically ventilated
-Did not have any desaturation or hypercapnia to explain her worsening mental status. Pulmonary mechanics normal.
#2. Acute encephalopathy, suspect metabolic. Patient was admitted for mental status changes felt to be related to history of alcoholism and hyponatremia for which she was treated with 3% saline. This morning patient unresponsive. Sodium noted to
be rather above 120. A stat blood gas was checked which did not show any evidence of hypercapnia.
-Patient intubated and mechanically ventilated for airway protection
-Start high-dose thiamine, 500 mg IV every 8 hour for presumed Wernicke's encephalopathy
-Stat CT head performed without any acute changes
-Check ammonia level
-Neurology consult, ordered EEG, nonconvulsive seizure also in differential. Await further recommendations from neurology service
#3. Severe hyponatremia likely due to beer potomania. Admission sodium around 110.
- Most recent noted 125 this morning. Considering numbers increased by 7 mEq in the last about 8 hours, 1 dose of DDAVP given. Start D5W at 100 mL/h. Discussed with nephrology service.
- Patient is off 3% saline now.
- Check BMP every 4 hours. Nephrology service on case.
- Replace hypokalemia with 40 meq KCl
#4. Bronchospasm, suspect COPD exacerbation. Patient quite wheezy on exam this morning.
- DuoNeb, changed to 4 times daily
- Solu-Medrol 60 mg stat followed by 40 mg daily
- Start azithromycin in view of COPD exacerbation and now intubation and mechanical ventilation.
#4. History of alcoholism.
-Concern for Wernicke's encephalopathy. Increase thiamine to 500 mg IV every 8 hours
-Discontinue phenobarbital as patient now on propofol. Will aim to minimize sedation to see how patient does neurologically.
DVT prophylaxis with Lovenox. Add GI prophylaxis.
Critical care statement: A total of 70 minutes of critical care time was provided for this patient today. This includes management of unstable vital signs, evaluation of the patient at bedside, reviewing the patient's pertinent medical records
including radiographs, microbiology, laboratory evaluations, and discussion with primary team, consultants, pharmacy, nutrition, physical therapy, case management, charge nurse, critical care nursing, and respiratory therapy.
Subjective Dataa
Subjective Data
Date of Service:
Date of Service: March 24, 2025
Subjective:
Patient noted to be unresponsive. Minimal response to deep sternal rub.
Review of Systems
General: Unobtainable - Pat Unresp
Objective Data
Data Reviewed
Vital Signs / I&O / Oxygen:
Vital Signs
Temp Pulse Resp BP Pulse Ox
98.1 F 108 20 95/70 93
03/24/25 11:55 03/24/25 12:00 03/24/25 12:00 03/24/25 12:00 03/24/25 13:17
Intake and Output
03/23/25 03/24/25 03/25/25
06:59 06:59 06:59
Intake Total 720.5 / 785.2 1466.3 / 1466.3 29.3 / 29.3
Output Total 1280 / 1280 405 / 405
Balance 720.5 / 785.2 186.3 / 186.3 -375.7 / -375.7
SaO2 [A/C] 94
SaO2 93
Nasal Cannula flow liters per 5
minute
Physical Exam
General: Other (Unresponsive, not in any respiratory distress however.)
HEENT: Normocephalic
Cardiovascular: S1-S2
Respiratory: Wheeze and Other (Rattling of secretions noted in the upper airway, no cough, unable to protect airway, bilateral wheezing)
GI: Soft and Non Distended
Neurology: Other (Unresponsive. Minimal response to deep sternal rub)
Skin: Warm
Labs/Micro/Reports
Lab Data
03/24/25 02:03
Laboratory Results
03/24/25 03/24/25
08:30 11:01
pH 7.37 7.34 L
pCO2 38 H 44 H
pO2 215 H 383 H
HCO3 22.0 23.7
O2 Delivery Level
Microbiology
03/22/25 18:19 Nasal Swab Influenza Types A & B (JANA) - Final
Negative for Influenza A & B, NAAT
Negative results must be combined with clinical observations
and patient history.
Nucleic Acid Amplification test (NAAT)performed on the
[employer] platform.
--- NOTE | 2025-03-24 13:42 | CON.NEURO ---
Consultation
Order
Date of Consultation: 03/24/25
Requesting Provider: Terrie Nash M.D.
Reason for Consult: Encephalopathy
Neurology Consultation Note.
HPI: This is a 64-year-old woman who presented to [facility] on March 22, 2025 with hypoxia and encephalopathy.
ER VS: 129/87-160/83, 99-128, 224-32, afebrile, 89 % on 5 L of O2.
EKG: NSR
PDMP:none
Labs: Sodium�110, potassium�2.6, glucose�166, magnesium�1.4, AST�143, ALT�68, normal ammonia, free T4, WBCs�11.6, UA�no evidence of infection, urine tox�negative, alcohol�negative, SARS-CoV-2�negative.
CT head wo contrast�mild atrophy, acute purulent sinusitis, mild periventricular, subcortical, and deep white matter hypoattenuation is non-specific but most likely related to microvascular ischemic disease
MAR: Fentanyl, propofol, lorazepam, Precedex, phenobarbital.
Routine EEG(03/24/2025) severe generalized slowing and infrequent bitemporal/central rhythmic slowing.
Ms. Hammonds was intubated for airway protection earlier today.
According to patient's sister Ms. Hammonds was living independently and was known to have EtOH addiction.
Ms. 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 She is a former smoker who quit but may still smoke occasionally. The patient has one son who lives in [place].
PMH: ETOH use DO, allergic rhinitis, HTN, DLP, MINDY, esophageal dysphagia
PSH: Bilateral cataract surgery
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
FH: Not contributory
All:NKDA
ROS: Unable due to intubation
General: Sedated, intubated
Cardio: Regular rate
Mental Status: Comatose
Cranial Nerves: Pupils are 2.5 mm, surgical. Orthophoric primary gaze. Negative oculocephalics, corneals, gag.
Motor: Flaccid quadriplegia
Reflexes: No clonus at the ankles.
Sensory: Unable to assess
Coordination: No tremors myoclonic movements
Gait: unable
Assessment and Plan:
I. Multifocal encephalopathy (metabolic, toxic)
II. Severe hyponatremia
III. Alcohol use disorder.
- Avoid cerebral hypoperfusion and hypoxia.
- Please check CK
- Start Keppra 1 g IV once followed by 500 mg twice daily.
- Repeat EEG tomorrow
- Continue IV thiamine and phenobarbital
- Brain MRI without mindy
- Will follow.
I personally reviewed all radiology and labs along with past medical records pertinent to current medical problems. Total time spent in patient care is 60 minutes.
Thank you for allowing us to participate in the care of this patient. We will continue to follow. Please do not hesitate to contact us with any questions or concerns.
Subjective/Objective
Subjective Data
Date of Service: March 24, 2025
Objective Data
Vital Signs
Temp Pulse Resp BP Pulse Ox
36.7 C 108 20 95/70 93
03/24/25 11:55 03/24/25 12:00 03/24/25 12:00 03/24/25 12:00 03/24/25 13:17
Lab Results
03/24/25 02:03
PT 13.9 Sec (11.4-14.6) 03/22/25 17:36
INR 1.04 03/22/25 17:36
APTT 30.2 Sec (23.4-35.0) 03/22/25 17:36
Sodium Cancelled 03/24/25 20:00
Potassium Cancelled 03/24/25 20:00
BUN Cancelled 03/24/25 20:00
Glucose Cancelled 03/24/25 20:00
Calcium Cancelled 03/24/25 20:00
Phosphorus 2.6 mg/dl (2.5-4.5) 03/24/25 02:03
Ur Buprenorphine Negative (Negative) 03/22/25 19:10
Patient Allergies
No Known Allergies Allergy (Verified 03/22/25 17:40)
Medications
-
Active Medications
Generic Name Dose Route Start Last Admin
Trade Name Freq PRN Reason Stop Dose Admin
Albuterol Sulfate 2.5 mg 03/22/25 23:18 03/24/25 05:44
Albuterol Nebs 2.5 Mg/3 Ml Ampul INH 2.5 mg
R Q4HPRN PRN Administration
wheezing/sob/cough
Protocol
Albuterol/Ipratropium 3 ml 03/22/25 23:18 03/22/25 23:27
Ipratropium 0.5/Albuterol 3 Mg (3 Ml Ampul) INH 3 ml
R Q4HPRN PRN Administration
sob
Protocol
Albuterol/Ipratropium 3 ml 03/24/25 12:00 03/24/25 11:13
Ipratropium 0.5/Albuterol 3 Mg (3 Ml Ampul) INH 3 ml
R QID ORI Administration
Protocol
Enoxaparin Sodium 30 mg 03/23/25 18:00 03/23/25 18:01
Enoxaparin Sodium 30 Mg/0.3 Ml Syringe SC 04/20/25 17:59 30 mg
QPM ORI Administration
Fentanyl Citrate 50 mcg 03/24/25 09:00 03/24/25 13:06
Fentanyl (50 Mcg/Ml) 100 Mcg/2 Ml Ampul IV 04/07/25 08:59 50 mcg
[id number] PRN Administration
see protocol
Protocol
Folic Acid 1 mg 03/23/25 08:00 03/24/25 08:01
Folic Acid 1 Mg Tablet PO 04/20/25 07:59 Not Given
DAILY ORI
Folic Acid 1 mg/ Sodium 50.2 mls @ 200.8 mls/hr 03/22/25 21:03 03/24/25 08:08
Chloride IV 04/19/25 21:02 50.2 mls
DAILYPRN PRN Administration
if NPO
Thiamine HCl 500 mg/ Sodium 255 mls @ 255 mls/hr 03/24/25 16:00
Chloride IV 04/21/25 15:59
Q8 ORI
Fentanyl Citrate 1,000 mcg in 100 mls @ 0 mls/hr 03/24/25 09:15
Sublimaze IV
PER PROTOCOL ORI
Protocol
Per Protocol
Propofol 1,000,000 mcg in 100 mls @ 0 mls/hr 03/24/25 09:15 03/24/25 09:45
Diprivan IV 100 mls
PER PROTOCOL ORI Administration
Protocol
Per Protocol
Dexmedetomidine HCl 400 mcg in 100 mls @ 0 mls/hr 03/24/25 13:00 03/24/25 12:50
Precedex IV 100 mls
PER PROTOCOL ORI Administration
Protocol
Per Protocol
Dextrose 1,000 mls @ 100 mls/hr 03/24/25 14:00
D5w IV
.Q10H ORI
Lorazepam 1 mg 03/22/25 21:03
Lorazepam 2 Mg/Ml Vial IV 04/19/25 21:02
Q1HPRN PRN
MSAS 8-11
Lorazepam 2 mg 03/22/25 21:03
Lorazepam 2 Mg/Ml Vial IV 04/19/25 21:02
Q1HPRN PRN
MSAS > 11
Lorazepam 1 mg 03/23/25 16:04 03/24/25 00:28
Lorazepam 2 Mg/Ml Vial IV 04/20/25 16:03 1 mg
Q2HPRN PRN Administration
MSAS 5-7
Methylprednisolone Sodium Succinate 40 mg 03/25/25 08:00
Methylprednisolone Pf 40 Mg/Ml Vial IV 04/22/25 07:59
DAILY ORI
Polyethylene Glycol 17 grams 03/25/25 08:00
Polyethylene Glycol Powder 17 Grams Packet TUBE 04/22/25 07:59
DAILY ORI
Sodium Chloride 0 ml 03/22/25 21:03 03/23/25 16:12
Sodium Chloride 0.9% (Preservative Free) 10 Ml Vial IV 04/19/25 21:02 0.5 ml
PRN PRN Administration
To dilute IV Ativan
Protocol
Sodium Chloride 0 flush 03/22/25 22:00
Sodium Chloride 0.9% (Flush) Syringe IV 04/19/25 21:59
PER PROTOCOL ORI
Home Medications
�Medication �Instructions �Recorded
atenolol 50 mg tablet 100 mg PO DAILY 03/22/25
hydrochlorothiazide 25 mg tablet 25 mg PO DAILY 03/22/25
ondansetron HCl 8 mg tablet 8 mg PO Q8H PRN nausea 03/22/25
paroxetine HCl 10 mg tablet 10 mg PO DAILY 03/22/25
simvastatin 40 mg tablet 40 mg PO QPM 03/22/25
Vital Signs and Labs
-
Vital Signs and Labs:
Vital Signs
Temp Pulse Resp BP Pulse Ox
36.7 C 108 20 95/70 93
03/24/25 11:55 03/24/25 12:00 03/24/25 12:00 03/24/25 12:00 03/24/25 13:17
Lab Results
03/24/25 02:03
PT 13.9 Sec (11.4-14.6) 03/22/25 17:36
INR 1.04 03/22/25 17:36
APTT 30.2 Sec (23.4-35.0) 03/22/25 17:36
Sodium Cancelled 03/24/25 20:00
Potassium Cancelled 03/24/25 20:00
BUN Cancelled 03/24/25 20:00
Glucose Cancelled 03/24/25 20:00
Calcium Cancelled 03/24/25 20:00
Phosphorus 2.6 mg/dl (2.5-4.5) 03/24/25 02:03
Ur Buprenorphine Negative (Negative) 03/22/25 19:10
Medications
-
Medications:
Generic Name Dose Route Start Last Admin
Trade Name Freq PRN Reason Stop Dose Admin
Albuterol Sulfate 2.5 mg 03/22/25 23:18 03/24/25 05:44
Albuterol Nebs 2.5 Mg/3 Ml Ampul INH 2.5 mg
R Q4HPRN PRN Administration
wheezing/sob/cough
Protocol
Albuterol/Ipratropium 3 ml 03/22/25 23:18 03/22/25 23:27
Ipratropium 0.5/Albuterol 3 Mg (3 Ml Ampul) INH 3 ml
R Q4HPRN PRN Administration
sob
Protocol
Albuterol/Ipratropium 3 ml 03/24/25 12:00 03/24/25 11:13
Ipratropium 0.5/Albuterol 3 Mg (3 Ml Ampul) INH 3 ml
R QID ORI Administration
Protocol
Azithromycin 500 mg 03/24/25 14:00
Azithromycin 250 Mg Tablet PO 03/26/25 08:01
DAILY ORI
Enoxaparin Sodium 30 mg 03/23/25 18:00 03/23/25 18:01
Enoxaparin Sodium 30 Mg/0.3 Ml Syringe SC 04/20/25 17:59 30 mg
QPM ORI Administration
Fentanyl Citrate 50 mcg 03/24/25 09:00 03/24/25 13:06
Fentanyl (50 Mcg/Ml) 100 Mcg/2 Ml Ampul IV 04/07/25 08:59 50 mcg
[id number] PRN Administration
see protocol
Protocol
Folic Acid 1 mg 03/23/25 08:00 03/24/25 08:01
Folic Acid 1 Mg Tablet PO 04/20/25 07:59 Not Given
DAILY ORI
Folic Acid 1 mg/ Sodium 50.2 mls @ 200.8 mls/hr 03/22/25 21:03 03/24/25 08:08
Chloride IV 04/19/25 21:02 50.2 mls
DAILYPRN PRN Administration
if NPO
Thiamine HCl 500 mg/ Sodium 255 mls @ 255 mls/hr 03/24/25 16:00
Chloride IV 04/21/25 15:59
Q8 ORI
Fentanyl Citrate 1,000 mcg in 100 mls @ 0 mls/hr 03/24/25 09:15
Sublimaze IV
PER PROTOCOL ORI
Protocol
Per Protocol
Propofol 1,000,000 mcg in 100 mls @ 0 mls/hr 03/24/25 09:15 03/24/25 09:45
Diprivan IV 100 mls
PER PROTOCOL ORI Administration
Protocol
Per Protocol
Dexmedetomidine HCl 400 mcg in 100 mls @ 0 mls/hr 03/24/25 13:00 03/24/25 12:50
Precedex IV 100 mls
PER PROTOCOL ORI Administration
Protocol
Per Protocol
Dextrose 1,000 mls @ 100 mls/hr 03/24/25 14:00
D5w IV
.Q10H ORI
Lorazepam 1 mg 03/22/25 21:03
Lorazepam 2 Mg/Ml Vial IV 04/19/25 21:02
Q1HPRN PRN
MSAS 8-11
Lorazepam 2 mg 03/22/25 21:03
Lorazepam 2 Mg/Ml Vial IV 04/19/25 21:02
Q1HPRN PRN
MSAS > 11
Lorazepam 1 mg 03/23/25 16:04 03/24/25 00:28
Lorazepam 2 Mg/Ml Vial IV 04/20/25 16:03 1 mg
Q2HPRN PRN Administration
MSAS 5-7
Methylprednisolone Sodium Succinate 40 mg 03/25/25 08:00
Methylprednisolone Pf 40 Mg/Ml Vial IV 04/22/25 07:59
DAILY ORI
Polyethylene Glycol 17 grams 03/25/25 08:00
Polyethylene Glycol Powder 17 Grams Packet TUBE 04/22/25 07:59
DAILY ORI
Sodium Chloride 0 ml 03/22/25 21:03 03/23/25 16:12
Sodium Chloride 0.9% (Preservative Free) 10 Ml Vial IV 04/19/25 21:02 0.5 ml
PRN PRN Administration
To dilute IV Ativan
Protocol
Sodium Chloride 0 flush 03/22/25 22:00
Sodium Chloride 0.9% (Flush) Syringe IV 04/19/25 21:59
PER PROTOCOL ORI
Home Medications
-
Home Medications
atenolol 50 mg tablet 100 mg PO DAILY 03/22/25
hydrochlorothiazide 25 mg tablet 25 mg PO DAILY 03/22/25
ondansetron HCl 8 mg tablet 8 mg PO Q8H PRN nausea 03/22/25
paroxetine HCl 10 mg tablet 10 mg PO DAILY 03/22/25
simvastatin 40 mg tablet 40 mg PO QPM 03/22/25
[2025-03-24] MEDS: ZITHROMAX 500 MG TUBE (14:28)
[2025-03-24] MEDS: D5W 500 IV (14:29)
[2025-03-24] MEDS: PROTONIX IV 40 MG IV (14:32)
[2025-03-24] MEDS: NSS (PRESERVATIVE FREE) 10 ML IV (14:32)
[2025-03-24 14:34] LABS: Blood Urea Nitrogen 10 mg/dl (7-17); Calcium 8.1 mg/dl (8.4-10.2); Carbon Dioxide 23 mmol/L (22-30); Chloride 92 mmol/L (98-107); Estimated Creatinine Clearance 76 ml/min; Glucose 193 mg/dl (70-99); Potassium 4.8 mmol/L (3.5-5.1); Sodium 122 mmol/L (135-145); eGFR > 60.00
--- NOTE | 2025-03-24 14:58 | PTCARENOTE ---
Dr. Falcon aware of afternoon labs, D5W started per order. eeg completed at bedside, sister otis here and updated. pt turned and repositioned, assessment unchanged, pt remains on dex.
--- NOTE | 2025-03-24 15:09 | EEGC.RPT ---
Continuous EEG Report
Recording
Start Date of Data Reviewed: 03/24/25
End Date of Data Reviewed: 03/24/25
Done with Video Recording: Yes
Electrocardiogram: Unremarkable
Report
TECHNICAL REMARKS:��This is a technically satisfactory eighteen channel record employing 21 disc electrodes applied according to a measured international 10-20 electrode placement system.��There were no significant technical difficulties.��The study
was done on a [employer] System.
STUDY DURATION: 27 min 19 sec
MEDICATIONS: Propofol, Precedex, Keppra, fentanyl
CLINICAL HISTORY: This is a 64-year-old woman with encephalopathy.��This study was requested to look for epileptiform activity.
REPORT: �At the onset of the EEG, the patient is in altered mental status. The background activity consists of 4-4.5 Hz, impersistent, posteriorly dominant, moderate amplitude, symmetric, and rhythmic activity. Continuous generalized, 2-3 Hz, 30-50
uV polymorphic delta activity was seen.� Stepwise intermittent photic stimulation did not induce additional abnormalities. Hyperventilation was not performed. Infrequent bitemporal/central rhythmic theta slowing lasting for 2-3 minutes was present.
Excessive beta activity was seen.
�
IMPRESSION: �This is an abnormal EEG recorded in the patient in altered mental status due to severe generalized slowing and infrequent bitemporal/central rhythmic subtle slowing indicative of focal cerebral dysfunction and encephalopathy nonspecific
in terms of etiology. No electrographic seizures were present.
[2025-03-24] MEDS: KEPPRA 1000 MG IV (15:28)
[2025-03-24] MEDS: THIAMINE INJECTION 255 MG IV ×2 (16:17→23:06)
--- NOTE | 2025-03-24 16:27 | PTCARENOTE ---
Addendum entered by Kenia Lindquist RN 03/24/25 16:30:
Dr. Falcon also aware of pts bp- no new orders.
Original Note:
Dr. Falcon aware of decreased urine output. Dr. Falcon and Dr. Rain at bedside and updated family.
--- NOTE | 2025-03-24 16:51 | CM ---
Chart reviewed and patient is intubated, plan will be [facility] depending on progress.
Plan; To follow with patient progress and contact [facility] for an assessment.
[2025-03-24] MEDS: LOVENOX 30 MG SC (17:25)
[2025-03-24 17:44] LABS: Blood Urea Nitrogen 12 mg/dl (7-17); Calcium 8.3 mg/dl (8.4-10.2); Carbon Dioxide 25 mmol/L (22-30); Chloride 92 mmol/L (98-107); Estimated Creatinine Clearance 76 ml/min; Glucose 214 mg/dl (70-99); Potassium 4.5 mmol/L (3.5-5.1); Sodium 122 mmol/L (135-145); Total CK 626 U/L (30-135); eGFR > 60.00
[2025-03-24 18:11] LABS: CKMB 4.9 ng/ml (0.0-3.4)
[2025-03-24 18:20] LABS: Glucose - Point of Care 208 mg/dl (70-99)
[2025-03-24] MEDS: NOVOLOG FLEXPEN-LOW RESISTANCE 2 UNITS SC (18:26)
[2025-03-24] MEDS: KEPPRA 500 MG IV (19:36)
[2025-03-24] MEDS: LEVOPHED 250 IV (20:46)
--- NOTE | 2025-03-24 21:03 | PTCARENOTE ---
ICU WATERWAY TRAFFIC CHECKER made aware of decreased UOP and BP 80s/60s, norepi gtt ordered and initiated to maintain MAP >65
[2025-03-24 22:44] LABS: Blood Urea Nitrogen 15 mg/dl (7-17); Calcium 8.5 mg/dl (8.4-10.2); Carbon Dioxide 22 mmol/L (22-30); Chloride 94 mmol/L (98-107); Estimated Creatinine Clearance 76 ml/min; Glucose 180 mg/dl (70-99); Potassium 4.8 mmol/L (3.5-5.1); Sodium 123 mmol/L (135-145); eGFR > 60.00
[2025-03-24] MEDS: NOVOLOG FLEXPEN-LOW RESISTANCE 1 UNITS SC (23:06)
[2025-03-24 23:16] LABS: Glucose - Point of Care 183 mg/dl (70-99)
[2025-03-25] VITALS (44 sets, daily range): BP systolic 98–212; BP diastolic 69–180; PULSE 147; BMI 19.4
--- NOTE | 2025-03-25 00:16 | PTCARENOTE ---
pt awake during oral care, following commands and nodding y/n appropriately. levo and precedex gtts continue. UOP improving. care ongoing
[2025-03-25] MEDS: PRECEDEX 100 IV (02:55)
[2025-03-25] MEDS: SUBLIMAZE 50 MCG IV ×5 (03:36→13:37)
[2025-03-25 03:43] LABS: INR 1.05
--- NOTE | 2025-03-25 03:48 | PTCARENOTE ---
AM labs sent. levo gtt currently off, pt maintaining MAP goal. precedex continues. q2h turns. CHG, monzon care, oral care done. care ongoing
[2025-03-25 03:51] LABS: % Basophils 0.1 % (0-2); % Immature Granulocytes 1.5 % (0-0.5); % Monocytes 11.6 % (1.7-9.3); % Neutrophils 76.8 % (42.2-75.2); Absolute Immature Granulocytes 0.1 10^3/uL (0-0.05); Absolute Lymphocytes 0.8 10^3/uL (1.2-3.4); Absolute Neutrophils 6.3 10^3/uL (1.4-6.5); Hematocrit 33.4 % (37.0-47.0); Hemoglobin 12.1 g/dL (12.0-16.0); Mean Corp Hgb Conc. 36.2 g/dL (33.0-37.0); Mean Corpuscular Hgb 37.6 pg (27.0-31.0); Mean Corpuscular Volume 103.7 fL (81.0-99.0); Mean Platelet Volume 10.1 fL (7.4-10.4); Nucleated Red Blood Cells % 0 %; Platelet Count 150 10^3/uL (130-400); Red Blood Cell Count 3.22 10^6/uL (4.20-5.40); Red Cell Dist. Width 11.3 % (11.5-14.5); White Blood Cell Count 8.2 10^3/uL (4.8-10.8)
[2025-03-25 04:03] LABS: ALT (SGPT) 40 U/L (0-35); AST (SGOT) 49 U/L (14-36); Albumin 3.2 g/dl (3.5-5.0); Alkaline Phosphatase 54 U/L (38-126); Blood Urea Nitrogen 14 mg/dl (7-17); Calcium 8.8 mg/dl (8.4-10.2); Carbon Dioxide 26 mmol/L (22-30); Chloride 95 mmol/L (98-107); Creatine Phosphokinase 389 U/L (30-135); Direct Bilirubin 0.2 mg/dl (0.0-0.4); Estimated Creatinine Clearance 74 ml/min; Glucose 147 mg/dl (70-99); Magnesium 1.7 mg/dl (1.6-2.3); Potassium 4.4 mmol/L (3.5-5.1); Sodium 124 mmol/L (135-145); Total Bilirubin 0.5 mg/dl (0.2-1.3); Total Protein 5.5 g/dl (6.3-8.2); eGFR > 60.00
[2025-03-25 04:29] LABS: TSH Reflex To Free T4 0.04 uIU/ml (0.47-4.68)
[2025-03-25 05:23] LABS: Free T4 2.18 ng/dl (0.78-2.19)
[2025-03-25] MEDS: NOVOLOG FLEXPEN-LOW RESISTANCE SC ×4 (05:47→23:38)
[2025-03-25 06:46] LABS: B.E. -0.4 mmol/L; HCO3 24.8 mmol/L (21-28); O2 Saturation % 98.8 % (94-98); PCO2 42 mmHg (32-35); PO2 83 mmHg (83-108); pH 7.38 (7.35-7.45)
--- NOTE | 2025-03-25 07:16 | W.PN.NEURO.1 ---
Today's Communication / Plan
-
.
Subjective/Objective
Subjective Data
Date of Service: March 25, 2025
Neurology follow-up note.
24-hour events, hypertensive in the morning up to 180/158, tachycardic.
Off propofol and Precedex, continues to be on fentanyl
Brain MRI is pending
Labs: Sodium�124, CK�389
PMH: ETOH use DO, allergic rhinitis, HTN, DLP, MINDY, esophageal dysphagia
PSH: Bilateral cataract surgery
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
FH: Not contributory
All:NKDA
ROS: Unable due to intubation
General: Intubated., Restrained.
Cardio: Regular rate
Mental Status: Awakens to tactile stimuli. Follows simple requests.
Cranial Nerves: Pupils are 2.5 mm, surgical. Orthophoric primary gaze. Positive corneals, gag.
Motor: All limbs are antigravity
Reflexes: No clonus at the ankles.
Sensory: Unable to assess
Coordination: No tremors myoclonic movements
Gait: unable
Assessment and Plan:
I. Multifocal encephalopathy (metabolic, toxic), improved
II. Severe hyponatremia
III. Alcohol use disorder.
- BP goal�normotension
- Continue Keppra 500 mg twice daily.
- Repeat EEG
- Continue IV thiamine and phenobarbital
- Brain MRI without mindy
- Will follow.
I personally reviewed all radiology and labs along with past medical records pertinent to current medical problems. Total time spent in patient care is 36 minutes.
Thank you for allowing us to participate in the care of this patient. We will continue to follow. Please do not hesitate to contact us with any questions or concerns
Objective Data
Vital Signs
Temp Pulse Resp BP Pulse Ox
36.9 C 93 16 104/81 96
03/25/25 05:44 03/25/25 06:30 03/25/25 06:30 03/25/25 06:30 03/25/25 06:30
Lab Results
03/25/25 03:22
PT 14.0 Sec (11.4-14.6) 03/25/25 03:22
INR 1.05 03/25/25 03:22
APTT 30.2 Sec (23.4-35.0) 03/22/25 17:36
Sodium Cancelled 03/25/25 10:00
Potassium Cancelled 03/25/25 10:00
BUN Cancelled 03/25/25 10:00
Glucose Cancelled 03/25/25 10:00
Calcium Cancelled 03/25/25 10:00
Phosphorus 2.6 mg/dl (2.5-4.5) 03/24/25 02:03
Ur Buprenorphine Negative (Negative) 03/22/25 19:10
Patient Allergies
No Known Allergies Allergy (Verified 03/22/25 17:40)
Vital Signs and Labs
-
Vital Signs and Labs:
Vital Signs
Temp Pulse Resp BP Pulse Ox
36.4 C 147 32 180/158 80
03/25/25 08:00 03/25/25 08:30 03/25/25 08:30 03/25/25 08:00 03/25/25 08:30
Lab Results
03/25/25 03:22
PT 14.0 Sec (11.4-14.6) 03/25/25 03:22
INR 1.05 03/25/25 03:22
APTT 30.2 Sec (23.4-35.0) 03/22/25 17:36
Sodium Cancelled 03/25/25 10:00
Potassium Cancelled 03/25/25 10:00
BUN Cancelled 03/25/25 10:00
Glucose Cancelled 03/25/25 10:00
Calcium Cancelled 03/25/25 10:00
Phosphorus 2.6 mg/dl (2.5-4.5) 03/24/25 02:03
Ur Buprenorphine Negative (Negative) 03/22/25 19:10
Medications
-
Medications:
Generic Name Dose Route Start Last Admin
Trade Name Freq PRN Reason Stop Dose Admin
Albuterol Sulfate 2.5 mg 03/22/25 23:18 03/24/25 05:44
Albuterol Nebs 2.5 Mg/3 Ml Ampul INH 2.5 mg
R Q4HPRN PRN Administration
wheezing/sob/cough
Protocol
Albuterol/Ipratropium 3 ml 03/22/25 23:18 03/22/25 23:27
Ipratropium 0.5/Albuterol 3 Mg (3 Ml Ampul) INH 3 ml
R Q4HPRN PRN Administration
sob
Protocol
Albuterol/Ipratropium 3 ml 03/24/25 12:00 03/25/25 07:30
Ipratropium 0.5/Albuterol 3 Mg (3 Ml Ampul) INH 3 ml
R QID ORI Administration
Protocol
Azithromycin 500 mg 03/24/25 14:00 03/25/25 07:28
Azithromycin 250 Mg Tablet TUBE 03/26/25 08:01 500 mg
DAILY ORI Administration
Dextrose 12.5 grams 03/24/25 18:00
Dextrose 50% (0.5 Grams/Ml) 50 Ml Syringe IV 04/21/25 17:59
[id number] PRN
hypoglycemia
Protocol
Enoxaparin Sodium 40 mg 03/25/25 18:00
Enoxaparin Sodium 40 Mg/0.4 Ml Syringe SC 04/22/25 17:59
QPM ORI
Fentanyl Citrate 50 mcg 03/24/25 09:00 03/25/25 08:24
Fentanyl (50 Mcg/Ml) 100 Mcg/2 Ml Ampul IV 04/07/25 08:59 50 mcg
[id number] PRN Administration
see protocol
Protocol
Folic Acid 1 mg 03/23/25 08:00 03/25/25 07:28
Folic Acid 1 Mg Tablet PO 04/20/25 07:59 1 mg
DAILY ORI Administration
Glucagon 1 mg 03/24/25 18:00
Glucagon 1 Mg Vial IM 04/21/25 17:59
PRN PRN
hypoglycemia - no IV access
Protocol
Folic Acid 1 mg/ Sodium 50.2 mls @ 200.8 mls/hr 03/22/25 21:03 03/24/25 08:08
Chloride IV 04/19/25 21:02 50.2 mls
DAILYPRN PRN Administration
if NPO
Thiamine HCl 500 mg/ Sodium 255 mls @ 255 mls/hr 03/24/25 16:00 03/25/25 07:29
Chloride IV 04/21/25 15:59 255 mls
Q8 ORI Administration
Fentanyl Citrate 1,000 mcg in 100 mls @ 0 mls/hr 03/24/25 09:15
Sublimaze IV
PER PROTOCOL ORI
Protocol
Per Protocol
Dexmedetomidine HCl 400 mcg in 100 mls @ 0 mls/hr 03/24/25 13:00 03/25/25 02:55
Precedex IV 100 mls
PER PROTOCOL ORI Administration
Protocol
Per Protocol
Dextrose 500 mls @ 100 mls/hr 03/24/25 15:00 03/24/25 14:29
D5w IV 03/25/25 14:59 500 mls
.Q5H ORI Administration
Norepinephrine Bitartrate 4 mg in 250 mls @ 0 mls/hr 03/24/25 20:45 03/24/25 20:46
Levophed IV 250 mls
PER PROTOCOL ORI Administration
Protocol
Per Protocol
Insulin Aspart 0 units 03/24/25 18:00 03/25/25 05:47
Insulin Aspart Low Resistance 300 Units/3 Ml Pen.Injctr SC 04/21/25 17:59 Not Given
Q6 ORI
Protocol
Levetiracetam 500 mg 03/24/25 20:00 03/25/25 07:29
Levetiracetam (100 Mg/Ml) 500 Mg/5 Ml Vial IV 04/21/25 19:59 500 mg
Q12 ORI Administration
Lorazepam 1 mg 03/22/25 21:03
Lorazepam 2 Mg/Ml Vial IV 04/19/25 21:02
Q1HPRN PRN
MSAS 8-11
Lorazepam 2 mg 03/22/25 21:03
Lorazepam 2 Mg/Ml Vial IV 04/19/25 21:02
Q1HPRN PRN
MSAS > 11
Lorazepam 1 mg 03/23/25 16:04 03/24/25 00:28
Lorazepam 2 Mg/Ml Vial IV 04/20/25 16:03 1 mg
Q2HPRN PRN Administration
MSAS 5-7
Methylprednisolone Sodium Succinate 40 mg 03/25/25 08:00 03/25/25 07:28
Methylprednisolone Pf 40 Mg/Ml Vial IV 04/22/25 07:59 40 mg
DAILY ORI Administration
Pantoprazole Sodium 40 mg 03/24/25 14:00 03/25/25 07:29
Pantoprazole Sodium 40 Mg/10 Ml Vial IV 04/21/25 13:59 40 mg
DAILY ORI Administration
Polyethylene Glycol 17 grams 03/25/25 08:00 03/25/25 07:28
Polyethylene Glycol Powder 17 Grams Packet TUBE 04/22/25 07:59 17 grams
DAILY ORI Administration
Sodium Chloride 0 ml 03/22/25 21:03 03/23/25 16:12
Sodium Chloride 0.9% (Preservative Free) 10 Ml Vial IV 04/19/25 21:02 0.5 ml
PRN PRN Administration
To dilute IV Ativan
Protocol
Sodium Chloride 0 flush 03/22/25 22:00
Sodium Chloride 0.9% (Flush) Syringe IV 04/19/25 21:59
PER PROTOCOL ORI
Sodium Chloride 10 ml 03/24/25 14:30 03/25/25 07:29
Sodium Chloride 0.9% (Preservative Free) 10 Ml Vial IV 04/21/25 14:29 10 ml
DAILY ORI Administration
Home Medications
-
Home Medications
atenolol 50 mg tablet 100 mg PO DAILY Blood Pressure 03/22/25
hydrochlorothiazide 25 mg tablet 25 mg PO DAILY Blood Pressure 03/22/25
ondansetron HCl 8 mg tablet 8 mg PO Q8H PRN nausea 03/22/25
paroxetine HCl 10 mg tablet 10 mg PO DAILY Mental Health/Anxiety 03/22/25
simvastatin 40 mg tablet 40 mg PO QPM High Cholesterol 03/22/25
[2025-03-25] MEDS: SOLU-MEDROL PF 40 MG IV (07:28)
[2025-03-25] MEDS: FOLVITE 1 MG PO (07:28)
[2025-03-25] MEDS: MIRALAX 17 GRAMS TUBE (07:28)
[2025-03-25] MEDS: ZITHROMAX 500 MG TUBE (07:28)
[2025-03-25] MEDS: NSS (PRESERVATIVE FREE) 10 ML IV (07:29)
[2025-03-25] MEDS: KEPPRA 500 MG IV ×2 (07:29→19:48)
[2025-03-25] MEDS: PROTONIX IV 40 MG IV (07:29)
[2025-03-25] MEDS: THIAMINE INJECTION 255 MG IV ×3 (07:29→23:35)
[2025-03-25] MEDS: DUONEB 3 ML INH ×4 (07:30→20:17)
--- NOTE | 2025-03-25 07:55 | PTCARENOTE ---
pt received from previous rn- ett to vent- precedex off, placed on wean 5/5 40%. pt awakens and follows commands, nods yes and no appropriately. eeg at bedside. nsr to st on monitor. monzon draining yellow to meme urine. see assessment for further
details. poc discussed with Dr. Falcon. all safety precautions in place.
--- NOTE | 2025-03-25 08:07 | PTCARENOTE ---
pt belly breathing, tachypneic and hypertensive, Dr. Falcon and RT at bedside, placed back on AC and precedex restarted at previous rate.
--- NOTE | 2025-03-25 08:18 | W.PN.HOSP.TC ---
Today's Communication/Plan
-
Mechanical ventilation. Precedex drip
Assessment / Plan
Assessment / Plan
Physical exam:
General: Acutely ill
HEENT: Normocephalic, Atraumatic and Moist Mucous Membranes
Respiratory: Clear to Auscultation; Negative Wheezes, Rales or Rhonchi
Cardiac: Regular Rhythm and S1/S2
GI: Soft, Nontender and Nondistended
Musculoskeletal: No Clubbing, No Cyanosis and No Edema
Neuro: Sedated on the vent
Psych: Calm
A/P:
Acute respiratory failure:
S/p intubation on 03/24 due to inability to protect airway
Continue mechanical ventilation
Acute metabolic encephalopathy:
Alcohol versus seizure and or both
Neurology consulted by regulatory compliance engineer
On AED
Plan for MRI of the brain
Severe hyponatremia:
Has been on 3% saline and now off
Nephrology on board
Monitor closely
If rapid correction needs hypotonic or vasopressin
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
Suspect COPD exacerbation:
Pulm started on IV steroids and abx
Will need PFT when recover from acute illness
Alcohol use disorder:
On MSA protocol and or Precedex drip
Phenobarbital discontinued
On thiamine and folate
Hypokalemia and hypomagnesia
Replete magnesium and potassium
Abnormal TSH-if anything subclinical hyperthyroidism
Transaminitis likely secondary to alcohol
- Continue to monitor
DVT prophylaxis:
SCDs
Code status:
Full code
Total Critical Care Time_55____ minutes. I was immediately available to the patient and staff. I personally examined, reviewed labs, diagnostic images/reports, interpretations, treatment plans, discussed patient care with other providers and
family or caregivers (if patient is unable to make decisions), entered orders as appropriate and documented the medical record.
Anticipated Discharge: > 48 hours
Subjective/Interval History
-
Date of Service: March 25, 2025
Remains on the ventilator. Afebrile
Objective Data
-
Labs:
Laboratory Results
03/24/25 03/25/25 03/25/25
22:14 02:00 03:22
WBC 8.2
Hgb 12.1
Hct 33.4 L
Plt Count 150
PT 14.0
INR 1.05
HCO3
Sodium 123 L Cancelled 124 L
Potassium 4.8 Cancelled 4.4
Chloride 94 L Cancelled 95 L
Carbon Dioxide 22 Cancelled 26
BUN 15 Cancelled 14
Creatinine 0.4 L Cancelled 0.4 L
Glucose 180 H Cancelled 147 H
Calcium 8.5 Cancelled 8.8
Total Bilirubin 0.5
AST 49 H
ALT 40 H
Alkaline Phosphatase 54
03/25/25 03/25/25 03/25/25
06:34 10:00 12:00
WBC
Hgb
Hct
Plt Count
PT
INR
HCO3 24.8
Sodium Cancelled Pending
Potassium Cancelled Pending
Chloride Cancelled Pending
Carbon Dioxide Cancelled Pending
BUN Cancelled Pending
Creatinine Cancelled Pending
Glucose Cancelled Pending
Calcium Cancelled Pending
Total Bilirubin
AST
ALT
Alkaline Phosphatase
03/25/25
18:00
WBC
Hgb
Hct
Plt Count
PT
INR
HCO3
Sodium Pending
Potassium Pending
Chloride Pending
Carbon Dioxide Pending
BUN Pending
Creatinine Pending
Glucose Pending
Calcium Pending
Total Bilirubin
AST
ALT
Alkaline Phosphatase
Vital Signs:
Vital Signs
Temp Pulse Resp BP Pulse Ox
98.4 F 58 10 104/81 96
03/25/25 05:44 03/25/25 07:37 03/25/25 07:37 03/25/25 06:30 03/25/25 07:59
I&O
03/24/25 03/25/25 03/26/25
06:59 06:59 06:59
Intake Total 1466.3 / 1466.3 640.6 / 640.6
Output Total 1280 / 1280 865 / 880
Balance 186.3 / 186.3 -224.4 / -239.4 -
--- NOTE | 2025-03-25 09:13 | W.PN.NEPH.PH ---
Today's Communication / Plan
-
follow BMP
Assessment/Plan
-
64-year-old female past medical history of hyperlipidemia, hypertension, anxiety, presenting with change in mental status noted by her friends. Per paramedics when they arrived at the scene she was lying in her bed surrounded by her friends.
Friends told tray checker that she drinks alcohol daily sometimes heavily. Last night she had alcohol. During that time she appeared to be more confused. When friends called patient's home there is no response. Friends came to the patient's house
and they found her minimally responsive laying in her bed.
Hyponatremia 110
Impression.
Severe hyponatremia 110 secondary to alcohol abuse
Hypokalemia
Altered mental status
Alcohol abuse
Hypertension
Plan
no additional 3%NaCl or D5W today to avoid any further wide swings in Na level
serial BMP
could consider 10ml/hr 3% tomorrow
d/w pt family at length
critical care time 31 minutes
-
-
Date of Service: March 25, 2025
CC / HPI / ROS
-
Chief Complaint:
hyponatremia
History of Present Illness:
Na up to 124
BP stable
K and Phos normal
intubated yesterday for airway protection
critically ill in ICU
Review of Systems:
minimally responsive
tries to follow commands
Labs
-
Labs:
WBC 8.2 10^3/uL (4.8-10.8) 03/25/25 03:22
RBC 3.22 10^6/uL (4.20-5.40) L 03/25/25 03:22
Hgb 12.1 g/dL (12.0-16.0) 03/25/25 03:22
Hct 33.4 % (37.0-47.0) L 03/25/25 03:22
Plt Count 150 10^3/uL (130-400) 03/25/25 03:22
eGFR Cancelled 03/25/25 10:00
Phosphorus 2.6 mg/dl (2.5-4.5) 03/24/25 02:03
Albumin 3.2 g/dl (3.5-5.0) L 03/25/25 03:22
Physical Exam
-
Vital Signs:
Vital Signs
Temp Pulse Resp BP Pulse Ox
97.6 F 147 32 180/158 80
03/25/25 08:00 03/25/25 08:30 03/25/25 08:30 03/25/25 08:00 03/25/25 08:30
Cardiovascular:: Regular rate and rhythm
Respiratory:: Bilateral: Coarse
Lung Excursion:: Normal
Abdomen:: Nontender and Soft
Bowel Sounds:: Normal
Extremity Edema:: None: Bilateral:
--- NOTE | 2025-03-25 09:30 | PTCARENOTE ---
pt tachy and hypertensive, did not tolerate wean, Dr. Falcon at bedside, placed back on AC
[2025-03-25 11:51] LABS: Blood Urea Nitrogen 14 mg/dl (7-17); Calcium 8.9 mg/dl (8.4-10.2); Carbon Dioxide 26 mmol/L (22-30); Chloride 95 mmol/L (98-107); Estimated Creatinine Clearance 74 ml/min; Glucose 136 mg/dl (70-99); Potassium 3.9 mmol/L (3.5-5.1); Sodium 125 mmol/L (135-145); eGFR > 60.00
--- NOTE | 2025-03-25 12:30 | PTCARENOTE ---
assessment unchanged, pt given prn fentanyl as per order. turned and repositioned, oral care provided.
--- NOTE | 2025-03-25 13:07 | CM ---
CM continues to follow for discharge planning. [place] is currently intubated in ICU.
Plan: CM to follow to coordinate all discharge planning needs based on pt's medical course and willingness to participate in discussion with [facility] for ETOH support services.
--- NOTE | 2025-03-25 15:17 | W.PN.INTV ---
Today's Communication / Plan
Recommendations
- Continue to wean sedation
- Plan for SAT SBT today, anticipate extubation later today or in the morning
- Continue Solu-Medrol, DuoNeb and azithromycin
Assessment
-
Assessment: 64-year-old female with a past medical history of alcohol use disorder, hypertension, hypercholesterolemia, former tobacco smoker, anxiety and seasonal allergies who presents with change in mental status. Neighbors were unable to get
hold of the patient since the night prior and she was found in bed incontinent of urine and speaking incoherently. Per the patient's sister, the patient had called UTI this past week. When she was in the ER, she was moaning and unable to answer
questions. Initially, she was afebrile to 99.9 �F, pulse rate 99, respiratory rate 24, BP 129/87 and saturating 91% on 5 L/min nasal cannula. Initial labs were pertinent for WBC 11.6, sodium 110, potassium 2.6, magnesium 1.4, TSH 0.1, free T41.97,
and urinalysis with +3 ketones; UDS was negative, alcohol level was negative and COVID-19 antigen also negative. Flu swab was negative. CT head showed no acute intracranial abnormality, and CXR also showed no acute cardiopulmonary process. In the
ER she was given 500 cc bolus of NS 0.9%, 100cc of 3% NS, magnesium, potassium and Ativan. She was admitted to the ICU for further care and Cell Changer services consulted for additional management/recommendations.
03/24, patient was evaluated in the morning, noted to be unresponsive. There was minimal response to sternal rub. She had rattling secretions in her upper airways and was not able to protect her airway requiring emergent intubation and mechanical
ventilation. Patient also noted to have bilateral wheezing on exam.
Chronic conditions ENVIRONMENTAL SERVICES DIRECTOR: Hypertension, alcohol use disorder, hypercholesterolemia, anxiety, seasonal allergies
Assessment and plan:
#1. Acute respiratory failure due to inability to protect airway.
-Patient emergently intubated and mechanically ventilated (03/24)
-Did not have any desaturation or hypercapnia to explain her worsening mental status. Pulmonary mechanics normal.
- Patient more awake and alert. SAT/SBT was tried 03/25, patient developed mild tachycardia hence she was placed back on assist-control. Will reattempt later today.
#2. Acute encephalopathy, suspect metabolic. [place] to be related to nonconvulsive seizures and possibly? Wernicke's encephalopathy. Patient was admitted for mental status changes felt to be related to history of alcoholism and hyponatremia for
which she was treated with 3% saline. 03/24 morning patient unresponsive. Sodium noted to be rather above 120. A stat blood gas was checked which did not show any evidence of hypercapnia.
-Patient more awake and alert today. More responsive. SAT SBT later today
-Patient was intubated and mechanically ventilated for airway protection 03/24
-Started high-dose thiamine, 500 mg IV every 8 hour for presumed Wernicke's encephalopathy
-Stat CT head performed without any acute changes
-Neurology consult, ordered EEG, patient felt to have nonconvulsive seizure, Keppra initiated per neurology service.
#3. Severe hyponatremia likely due to beer potomania. Admission sodium around 110.
- Sodium went up to 125 on 03/24, 1 dose of DDAVP given. Started D5W at 100 mL/h, sodium dropped down into more acceptable range. Off D5 now.
- Patient is off 3% saline now.
- Nephrology service on case, follow-up BMP.
#4. Bronchospasm, suspect COPD exacerbation. Patient quite wheezy on exam 03/24
- DuoNeb, 4 times daily
- Solu-Medrol 60 mg stat followed by 40 mg daily continued
- Started azithromycin in view of COPD exacerbation and now intubation and mechanical ventilation.
- Quite improved, minimal end expiratory wheezing now. SAT SBT later today.
#4. History of alcoholism.
-Concern for Wernicke's encephalopathy. Increased thiamine to 500 mg IV every 8 hours
-Discontinued phenobarbital in view of encephalopathy. Will aim to minimize sedation to see how patient does neurologically.
DVT prophylaxis with Lovenox. GI prophylaxis.
Critical care statement: A total of 50 minutes of critical care time was provided for this patient today. This includes management of unstable vital signs, evaluation of the patient at bedside, reviewing the patient's pertinent medical records
including radiographs, microbiology, laboratory evaluations, and discussion with primary team, consultants, pharmacy, nutrition, physical therapy, case management, charge nurse, critical care nursing, and respiratory therapy.
Subjective Dataa
Subjective Data
Date of Service:
Date of Service: March 25, 2025
Subjective:
Patient more awake and alert, currently intubated and mechanically ventilated.
Review of Systems
General: Other (Patient currently intubated)
Objective Data
Data Reviewed
Vital Signs / I&O / Oxygen:
Vital Signs
Temp Pulse Resp BP Pulse Ox
98.4 F 84 18 108/77 94
03/25/25 11:38 03/25/25 14:00 03/25/25 14:00 03/25/25 14:00 03/25/25 14:00
Intake and Output
03/24/25 03/25/25 03/26/25
06:59 06:59 06:59
Intake Total 1466.3 / 1466.3 640.6 / 640.6 312.2 / 312.2
Output Total 1280 / 1280 865 / 880 735 / 735
Balance 186.3 / 186.3 -224.4 / -239.4 -422.8 / -422.8
SaO2 [CPAP] 97
SaO2 [A/C] 95
SaO2 94
Nasal Cannula flow liters per 5
minute
Physical Exam
General: Other (More awake and alert, opens eyes, follows simple commands.)
HEENT: Normocephalic
Cardiovascular: S1-S2
Respiratory: Other (Minimal end expiratory wheezing noted.)
GI: Soft and Non Distended
Neurology: Awake and Alert
Skin: Warm
Labs/Micro/Reports
Lab Data
03/25/25 03:22
Laboratory Results
03/25/25 03/25/25
03:22 06:34
PT 14.0
INR 1.05
pH 7.38
pCO2 42 H
pO2 83
HCO3 24.8
O2 Delivery Level
Microbiology
03/24/25 12:24 Tracheal Aspirate Respiratory Culture - Preliminary
Usual Respiratory [place]
03/24/25 12:24 Tracheal Aspirate Gram Stain - Preliminary
03/22/25 18:19 Nasal Swab Influenza Types A & B (JANA) - Final
Negative for Influenza A & B, NAAT
Negative results must be combined with clinical observations
and patient history.
Nucleic Acid Amplification test (NAAT)performed on the
[employer] platform.
--- NOTE | 2025-03-25 15:22 | EEGC.RPT ---
Continuous EEG Report
Recording
Start Date of Data Reviewed: 03/25/25
End Date of Data Reviewed: 03/25/25
Done with Video Recording: Yes
Report
TECHNICAL REMARKS: This is a technically satisfactory eighteen channel record employing 21 disc electrodes applied according to a measured international 10-20 electrode placement system. There were no significant technical difficulties. The study
was done on a [employer] System.
STUDY DURATION: 26 minutes and 18 seconds
MEDICATIONS: Keppra, fentanyl
CLINICAL HISTORY: This is a 64-year-old woman with encephalopathy. This study was requested to look for epileptiform activity.
REPORT: At the onset of the EEG, the patient is in altered mental status. The background activity consists of 6�6-1/2 hz, impersistent, posteriorly dominant, moderate amplitude, symmetric, and rhythmic activity. Continuous generalized, 2-3 Hz,
30-50 uV polymorphic delta activity was seen. Stepwise intermittent photic stimulation did not induce additional abnormalities. Hyperventilation was not performed. Multiple muscle artifacts were present limited precise characterization of the
record.
IMPRESSION: This is an abnormal EEG recorded in the patient in altered mental status due to a moderate to severe generalized slowing. This finding indicates diffuse cerebral dysfunction, nonspecific in terms of etiology. No epileptiform
abnormalities were seen.
--- NOTE | 2025-03-25 15:46 | PTCARENOTE ---
precedex off, pt placed on wean. Dr. Falcon at bedside- abg ordered and per md louis for q8hr bmp, next draw 1999.
[2025-03-25 16:20] LABS: B.E. -2.2 mmol/L; HCO3 23.2 mmol/L (21-28); O2 Saturation % 95.4 % (94-98); PCO2 41 mmHg (32-35); PO2 68 mmHg (83-108); pH 7.36 (7.35-7.45)
[2025-03-25] MEDS: LOVENOX 40 MG SC (16:57)
--- NOTE | 2025-03-25 17:06 | PTCARENOTE ---
pt weaned and extubated at 1650 to 55L 100% HFNC, pt able to state she's in hospital and knows name, forgetful and confused. Dr. Falcon at bedside and aware, pt remains tachy 110-120s. family at bedside.
[2025-03-25 18:11] LABS: Glucose - Point of Care 135 mg/dl (70-99)
[2025-03-25 20:31] LABS: Blood Urea Nitrogen 12 mg/dl (7-17); Carbon Dioxide 24 mmol/L (22-30); Chloride 95 mmol/L (98-107); Estimated Creatinine Clearance 74 ml/min; Glucose 126 mg/dl (70-99); Sodium 128 mmol/L (135-145); eGFR > 60.00
--- NOTE | 2025-03-25 21:00 | PTCARENOTE ---
pt oriented, forgetful at times. ST on monitor. on HFNC, 55L 90%, weaning as tolerated. expiratory wheeze noted. NPO at this time. monzon in place. CHG bath, monzon care and oral hygiene done. BMP sent. pt denies CP, SOB. offers no complaints at this
time. call ivy in reach.
[2025-03-25 23:48] LABS: Glucose - Point of Care 102 mg/dl (70-99)
[2025-03-26] VITALS (15 sets, daily range): BP systolic 114–155; BP diastolic 79–108; PULSE 115–132; O2SAT 95; BMI 19.3
--- NOTE | 2025-03-26 00:17 | PTCARENOTE ---
pt currently on 50%, 50L HFNC. O2 sat 97%. otherwise assessment unchanged. call ivy in reach
--- NOTE | 2025-03-26 04:12 | PTCARENOTE ---
AM labs sent. pt remains on HFNC - 50L 50%. call ivy in reach.
[2025-03-26 04:21] LABS: Hemoglobin 12.5 g/dL (12.0-16.0); Mean Corp Hgb Conc. 34.7 g/dL (33.0-37.0); Mean Corpuscular Hgb 36.3 pg (27.0-31.0); Mean Corpuscular Volume 104.7 fL (81.0-99.0); Mean Platelet Volume 9.4 fL (7.4-10.4); Platelet Count 195 10^3/uL (130-400); Red Blood Cell Count 3.44 10^6/uL (4.20-5.40); Red Cell Dist. Width 11.7 % (11.5-14.5); White Blood Cell Count 13.4 10^3/uL (4.8-10.8)
[2025-03-26 04:48] LABS: Blood Urea Nitrogen 12 mg/dl (7-17); Calcium 9.3 mg/dl (8.4-10.2); Carbon Dioxide 25 mmol/L (22-30); Chloride 98 mmol/L (98-107); Estimated Creatinine Clearance 74 ml/min; Glucose 83 mg/dl (70-99); Sodium 131 mmol/L (135-145); eGFR > 60.00
[2025-03-26 04:55] LABS: Potassium 4.1 mmol/L (3.5-5.1)
[2025-03-26 05:21] LABS: Glucose - Point of Care 75 mg/dl (70-99)
[2025-03-26 05:28] LABS: TSH Reflex To Free T4 0.25 uIU/ml (0.47-4.68)
[2025-03-26] MEDS: NOVOLOG FLEXPEN-LOW RESISTANCE SC ×3 (05:32→18:21)
[2025-03-26 05:58] LABS: Free T4 2.46 ng/dl (0.78-2.19)
[2025-03-26] MEDS: DUONEB 3 ML INH ×3 (07:09→20:17)
--- NOTE | 2025-03-26 07:49 | W.PN.NEURO.1 ---
Today's Communication / Plan
-
.
Subjective/Objective
Subjective Data
Date of Service: March 26, 2025
Neurology follow-up note.
24-hour events: Extubated, afebrile.
Continues to be on methylprednisolone.
Labs: WBCs�13.4, sodium�131, free T4-2.46
Routine EEG (03/25/2025)�severe generalized slowing.
Brain MRI is pending.
PMH: ETOH use DO, allergic rhinitis, HTN, DLP, MINDY, esophageal dysphagia
PSH: Bilateral cataract surgery
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
FH: Not contributory
All:NKDA
ROS: Limited due to encephalopathy
General: In no acute distress, restrained.
Cardio: Regular rate
Mental Status: Awake. Expressive and receptive aphasia. Perseverates
Cranial Nerves: Pupils are 2.5 mm, surgical. Orthophoric primary gaze. Blink to threat bilaterally. Positive corneals, gag.
Motor: All limbs are antigravity
Reflexes: No clonus at the ankles.
Sensory: Unable to assess
Coordination: No tremors myoclonic movements
Gait: unable
Assessment and Plan:
I. Multifocal encephalopathy (metabolic, toxic).
II. Hyponatremia
III. Alcohol use disorder.
- BP goal�normotension
- Continue Keppra 500 mg twice daily.
- Continue IV thiamine
- Brain MRI without mindy
- Repeat CT head without contrast if brain MRI is not feasible
- Will follow.
I personally reviewed all radiology and labs along with past medical records pertinent to current medical problems. Total time spent in patient care is 35 minutes.
Thank you for allowing us to participate in the care of this patient. We will continue to follow. Please do not hesitate to contact us with any questions or concerns
Objective Data
Vital Signs
Temp Pulse Resp BP Pulse Ox
36.8 C 90 12 141/88 97
03/26/25 03:32 03/26/25 07:12 03/26/25 07:12 03/26/25 07:00 03/26/25 07:12
Lab Results
03/26/25 04:04
PT 14.0 Sec (11.4-14.6) 03/25/25 03:22
INR 1.05 03/25/25 03:22
APTT 30.2 Sec (23.4-35.0) 03/22/25 17:36
Sodium 131 mmol/L (135-145) L 03/26/25 04:04
Potassium 4.1 mmol/L (3.5-5.1) 03/26/25 04:04
BUN 12 mg/dl (7-17) 03/26/25 04:04
Glucose 83 mg/dl (70-99) 03/26/25 04:04
Calcium 9.3 mg/dl (8.4-10.2) 03/26/25 04:04
Phosphorus 2.6 mg/dl (2.5-4.5) 03/24/25 02:03
Ur Buprenorphine Negative (Negative) 03/22/25 19:10
Patient Allergies
No Known Allergies Allergy (Verified 03/22/25 17:40)
Vital Signs and Labs
-
Vital Signs and Labs:
Vital Signs
Temp Pulse Resp BP Pulse Ox
36.8 C 90 12 141/88 94
03/26/25 07:51 03/26/25 07:12 03/26/25 07:12 03/26/25 07:00 03/26/25 08:20
Lab Results
03/26/25 04:04
PT 14.0 Sec (11.4-14.6) 03/25/25 03:22
INR 1.05 03/25/25 03:22
APTT 30.2 Sec (23.4-35.0) 03/22/25 17:36
Sodium 131 mmol/L (135-145) L 03/26/25 04:04
Potassium 4.1 mmol/L (3.5-5.1) 03/26/25 04:04
BUN 12 mg/dl (7-17) 03/26/25 04:04
Glucose 83 mg/dl (70-99) 03/26/25 04:04
Calcium 9.3 mg/dl (8.4-10.2) 03/26/25 04:04
Phosphorus 2.6 mg/dl (2.5-4.5) 03/24/25 02:03
Ur Buprenorphine Negative (Negative) 03/22/25 19:10
Medications
-
Medications:
Generic Name Dose Route Start Last Admin
Trade Name Freq PRN Reason Stop Dose Admin
Albuterol Sulfate 2.5 mg 03/22/25 23:18 03/24/25 05:44
Albuterol Nebs 2.5 Mg/3 Ml Ampul INH 2.5 mg
R Q4HPRN PRN Administration
wheezing/sob/cough
Protocol
Albuterol/Ipratropium 3 ml 03/22/25 23:18 03/22/25 23:27
Ipratropium 0.5/Albuterol 3 Mg (3 Ml Ampul) INH 3 ml
R Q4HPRN PRN Administration
sob
Protocol
Albuterol/Ipratropium 3 ml 03/24/25 12:00 03/26/25 07:09
Ipratropium 0.5/Albuterol 3 Mg (3 Ml Ampul) INH 3 ml
R QID ORI Administration
Protocol
Dextrose 12.5 grams 03/24/25 18:00
Dextrose 50% (0.5 Grams/Ml) 50 Ml Syringe IV 04/21/25 17:59
[id number] PRN
hypoglycemia
Protocol
Enoxaparin Sodium 40 mg 03/25/25 18:00 03/25/25 16:57
Enoxaparin Sodium 40 Mg/0.4 Ml Syringe SC 04/22/25 17:59 40 mg
QPM ORI Administration
Folic Acid 1 mg 03/23/25 08:00 03/25/25 07:28
Folic Acid 1 Mg Tablet PO 04/20/25 07:59 1 mg
DAILY ORI Administration
Glucagon 1 mg 03/24/25 18:00
Glucagon 1 Mg Vial IM 04/21/25 17:59
PRN PRN
hypoglycemia - no IV access
Protocol
Folic Acid 1 mg/ Sodium 50.2 mls @ 200.8 mls/hr 03/22/25 21:03 03/24/25 08:08
Chloride IV 04/19/25 21:02 50.2 mls
DAILYPRN PRN Administration
if NPO
Thiamine HCl 500 mg/ Sodium 255 mls @ 255 mls/hr 03/24/25 16:00 03/26/25 09:02
Chloride IV 04/21/25 15:59 255 mls
Q8 ORI Administration
Norepinephrine Bitartrate 4 mg in 250 mls @ 0 mls/hr 03/24/25 20:45 03/24/25 20:46
Levophed IV 250 mls
PER PROTOCOL ORI Administration
Protocol
Per Protocol
Insulin Aspart 0 units 03/24/25 18:00 03/26/25 05:32
Insulin Aspart Low Resistance 300 Units/3 Ml Pen.Injctr SC 04/21/25 17:59 Not Given
Q6 ORI
Protocol
Levetiracetam 500 mg 03/24/25 20:00 03/26/25 08:54
Levetiracetam (100 Mg/Ml) 500 Mg/5 Ml Vial IV 04/21/25 19:59 500 mg
Q12 ORI Administration
Lorazepam 1 mg 03/22/25 21:03
Lorazepam 2 Mg/Ml Vial IV 04/19/25 21:02
Q1HPRN PRN
MSAS 8-11
Lorazepam 2 mg 03/22/25 21:03
Lorazepam 2 Mg/Ml Vial IV 04/19/25 21:02
Q1HPRN PRN
MSAS > 11
Lorazepam 1 mg 03/23/25 16:04 03/24/25 00:28
Lorazepam 2 Mg/Ml Vial IV 04/20/25 16:03 1 mg
Q2HPRN PRN Administration
MSAS 5-7
Methylprednisolone Sodium Succinate 40 mg 03/25/25 08:00 03/26/25 08:57
Methylprednisolone Pf 40 Mg/Ml Vial IV 04/22/25 07:59 40 mg
DAILY ORI Administration
Multi-Ingredient Mouthwash/Gargle 5 ml 03/25/25 23:47
Magic (Miracle) Mouthwash 90 Ml Bottle PO
QIDPRN PRN
mouth pain
Pantoprazole Sodium 40 mg 03/24/25 14:00 03/26/25 08:56
Pantoprazole Sodium 40 Mg/10 Ml Vial IV 04/21/25 13:59 40 mg
DAILY ORI Administration
Polyethylene Glycol 17 grams 03/25/25 08:00 03/25/25 07:28
Polyethylene Glycol Powder 17 Grams Packet TUBE 04/22/25 07:59 17 grams
DAILY ORI Administration
Sodium Chloride 0 ml 03/22/25 21:03 03/23/25 16:12
Sodium Chloride 0.9% (Preservative Free) 10 Ml Vial IV 04/19/25 21:02 0.5 ml
PRN PRN Administration
To dilute IV Ativan
Protocol
Sodium Chloride 0 flush 03/22/25 22:00
Sodium Chloride 0.9% (Flush) Syringe IV 04/19/25 21:59
PER PROTOCOL ORI
Sodium Chloride 10 ml 03/24/25 14:30 03/26/25 08:56
Sodium Chloride 0.9% (Preservative Free) 10 Ml Vial IV 04/21/25 14:29 10 ml
DAILY ORI Administration
Home Medications
-
Home Medications
atenolol 50 mg tablet 100 mg PO DAILY Blood Pressure 03/22/25
hydrochlorothiazide 25 mg tablet 25 mg PO DAILY Blood Pressure 03/22/25
ondansetron HCl 8 mg tablet 8 mg PO Q8H PRN nausea 03/22/25
paroxetine HCl 10 mg tablet 10 mg PO DAILY Mental Health/Anxiety 03/22/25
simvastatin 40 mg tablet 40 mg PO QPM High Cholesterol 03/22/25
--- NOTE | 2025-03-26 08:35 | PTCARENOTE ---
Assumed care of pt at 0715 following shift report. Pt asleep, easily arousable to name. Denies c/o pain. Pt currently on O2 @ 6l/min via NC w/ Pox 94%. Denies SOB. Physical assessment completed as documented. Repositioned and comfort care provided.
Call ivy w/in pt reach. Bed exit alarm in use. Safe environment maintained.
[2025-03-26] MEDS: KEPPRA 500 MG IV ×2 (08:54→20:30)
--- NOTE | 2025-03-26 08:54 | W.PN.HOSP.TC ---
Today's Communication/Plan
-
Weaning mechanical ventilation. MSA protocol. IV AED
Assessment / Plan
Assessment / Plan
Physical exam:
General: Acutely ill
HEENT: ETT in place. Normocephalic, Atraumatic and Moist Mucous Membranes
Respiratory: Clear to Auscultation; Negative Wheezes, Rales or Rhonchi
Cardiac: Regular Rhythm and S1/S2
GI: Soft, Nontender and Nondistended
Musculoskeletal: No Clubbing, No Cyanosis and No Edema
Neuro: Sedated on the vent but more alert overall and responsive
Psych: Calm
A/P:
Acute respiratory failure:
S/p intubation on 03/24 due to inability to protect airway
Continue mechanical ventilation and plan for weaning
Acute metabolic encephalopathy:
Alcohol versus seizure and or both
Neurology consulted by retail business development manager
On AED, Keppra IV 500 mg every 12 hours
Plan for MRI of the brain
Severe hyponatremia:
Na up to 131 today
Has been on 3% saline and now off
Nephrology on board
Monitor
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
Suspect COPD exacerbation:
Pulm started on IV steroids and abx--> currently on IV Solu-Medrol 40 mg IV daily and enteral azithromycin
Will need PFT when recover from acute illness
Alcohol use disorder:
Continue MSA protocol
Precedex drip is off
Phenobarbital discontinued
On thiamine and folate
Hypokalemia and hypomagnesia
Replete magnesium and potassium
Abnormal TSH-if anything subclinical hyperthyroidism
Transaminitis likely secondary to alcohol
- Continue to monitor every so often
DVT prophylaxis:
Lovenox SQ
Code status:
Full code
Total time spent on today's encounter was 52 minutes which included time spent in counseling the patient/family regarding diagnosis and treatment plan as listed above, goals of care, and symptom management. Case was discussed with nursing staff,
specialists, and care coordinators/case management. All labs and imaging personally reviewed by me. Remainder the time spent in detailed review of previous records, lab data, imaging, and other medical provider documentation.
Anticipated Discharge: > 48 hours
Subjective/Interval History
-
Date of Service: March 26, 2025
Patient seen and examined
Objective Data
-
Labs:
Laboratory Results
03/26/25 03/26/25
04:04 12:00
WBC 13.4 H
Hgb 12.5
Hct 36.0 L
Plt Count 195 D
Sodium 131 L Pending
Potassium 4.1 Pending
Chloride 98 Pending
Carbon Dioxide 25 Pending
BUN 12 Pending
Creatinine 0.4 L Pending
Glucose 83 Pending
Calcium 9.3 Pending
Vital Signs:
Vital Signs
Temp Pulse Resp BP Pulse Ox
98.2 F 90 12 141/88 97
03/26/25 07:51 03/26/25 07:12 03/26/25 07:12 03/26/25 07:00 03/26/25 07:12
I&O
03/25/25 03/26/25 03/27/25
06:59 06:59 06:59
Intake Total 640.6 / 640.6 562.2 / 562.2
Output Total 865 / 880 2099 / 2099
Balance -224.4 / -239.4 -1537.8 / -1537.8
[2025-03-26] MEDS: PROTONIX IV 40 MG IV (08:56)
[2025-03-26] MEDS: NSS (PRESERVATIVE FREE) 10 ML IV (08:56)
[2025-03-26] MEDS: SOLU-MEDROL PF 40 MG IV (08:57)
[2025-03-26] MEDS: THIAMINE INJECTION 255 MG IV ×3 (09:02→23:17)
--- NOTE | 2025-03-26 09:38 | W.PN.NEPH.PH ---
Today's Communication / Plan
-
Fluid restrict
Assessment/Plan
-
64-year-old female past medical history of hyperlipidemia, hypertension, anxiety, presenting with change in mental status noted by her friends. Per paramedics when they arrived at the scene she was lying in her bed surrounded by her friends.
Friends told felt finisher that she drinks alcohol daily sometimes heavily. Last night she had alcohol. During that time she appeared to be more confused. When friends called patient's home there is no response. Friends came to the patient's house
and they found her minimally responsive laying in her bed.
Hyponatremia 110
Impression.
Severe hyponatremia 110 secondary to alcohol abuse
Hypokalemia
Altered mental status
Alcohol abuse
Hypertension
Plan
serial BMP
Sodium 131 improved
Maintain fluid restriction
Will sign off
-
-
Date of Service: March 26, 2025
CC / HPI / ROS
-
Chief Complaint:
hyponatremia
History of Present Illness:
Na up to 124> 131
BP stable
K and Phos normal
Extubated
Review of Systems:
Awake and alert no chest pain or shortness of breath
Labs
-
Labs:
WBC 13.4 10^3/uL (4.8-10.8) H 03/26/25 04:04
RBC 3.44 10^6/uL (4.20-5.40) L 03/26/25 04:04
Hgb 12.5 g/dL (12.0-16.0) 03/26/25 04:04
Hct 36.0 % (37.0-47.0) L 03/26/25 04:04
Plt Count 195 10^3/uL (130-400) D 03/26/25 04:04
eGFR > 60.00 03/26/25 04:04
Phosphorus 2.6 mg/dl (2.5-4.5) 03/24/25 02:03
Albumin 3.2 g/dl (3.5-5.0) L 03/25/25 03:22
Physical Exam
-
Vital Signs:
Vital Signs
Temp Pulse Resp BP Pulse Ox
98.2 F 90 12 141/88 94
03/26/25 07:51 03/26/25 07:12 03/26/25 07:12 03/26/25 07:00 03/26/25 08:20
Cardiovascular:: Regular rate and rhythm
Respiratory:: Bilateral: CTA and Bilateral: Coarse
Lung Excursion:: Normal
Abdomen:: Nontender and Soft
Bowel Sounds:: Normal
Extremity Edema:: None: Bilateral:
[2025-03-26] MEDS: DUONEB INH (11:26)
[2025-03-26 11:38] LABS: Glucose - Point of Care 108 mg/dl (70-99)
--- NOTE | 2025-03-26 11:40 | PTCARENOTE ---
Pt OOB to chair during visit from PT/OT. Tolerating increased activity w/o complaint or complication. Pt's sister and son here to visit. Updated on pt's present condition, plan of care. Questions answered. Speech therapy in room to evaluate pt-
alerted this RN and Dr Falcon to pt drooling and ? Rt facial droop. Dr Falcon assessed pt and neither he nor this RN noted Rt facial droop. Pt noted to be drooling a small amount which family states is new for pt and pt states 'I always do this'.
Terrie in conversation w/ neuro and decision made to proceed w/ ordered MRI of head. Pt returned to bed w/ assist of two staff- gait weak but legs equal in strength. Pt following all commands and conversation while slightly confused at times, is no
different in quality than when assessed pt earlier this shift. Thermistor Islas catheter removed once pt returned to bed. O2 at 12l/min via Midflow O2 w/ POx 90-94%. Pt transported w/ this RN in attendance for MRI at 1140. No additional changes
noted from previous assessment findings.
--- NOTE | 2025-03-26 11:54 | PTOTSP ---
Addendum entered and electronically signed by ST Meron 03/26/25 16:22:
03/26/25 [id number]: Chart reviewed pt and spoke to RN. Imaging negative for acute intracranial abnormality. Pt O2 weaned down to 6L. Recommend cautious diet initiation of IDDSI Level 4 (puree) and thin liquids. Recommend medications crushed in puree. 1:1
supervision. Low threshold for NPO - d/c oral diet if mentation not supportive of intake, noted s/sx of aspiration with intake, or worsening in respiratory status. TRUCK LOADER to closely follow.
Original Note:
Speech Therapy Re-Evaluation:
Completed swallow re-evaluation. Pt is s/p intubation from 03/24-03/25 2/2 unresponsiveness and ratting secretions with inability to protect airway. Pt noted with hoarse vocal quality, which family reported was mostly baseline. Initial oral motor exam
revealed intact symmetry, strength, and ROM. Did note large ulcer on L side of tongue which pt reported was causing discomfort. Vocal quality clear, which family reported was a significant improvement from initial evaluation.
Pt accepted PO trials of ice chips, thin liquids via single cup/straw sip, thin liquids via consecutive straw sip, and puree. There was no immediate s/sx of aspiration across PO trials, however noted congested cough between trials that was also
present outside of PO intake (did not increase with PO).
Discussed pt specific risks of aspiration with pt/family(intubation, high O2 requirements although downtrending, and lethargy). Given that intubation was short in duration, O2 requirements decreasing, improving mentation, and improved secretion
management, discussed consideration for cautious diet initiation of puree and thin liquids with 1:1 supervision and low threshold for NPO. Towards end of discussion, pt noted with slight R facial droop accompanied by drooling (drooling noted on
initial evaluation). Pt reported drooling was baseline, however family disagreed with this statement and reported drooling was not baseline for pt. TRUCK LOADER notified medical team during rounding in [facility], who entered session for further assessment.
Current plans for MRI. Recommend temporary NPO. TRUCK LOADER to re-evaluate candidacy for diet initiation pending results of MRI.
Recommend:
1. Temporary NPO
2. Essential medications crushed in puree
3. TRUCK LOADER to re-evaluate candidacy for diet initiation pending results of MRI.
[2025-03-26] MEDS: MIRALAX 17 GRAMS TUBE (12:47)
[2025-03-26] MEDS: ZITHROMAX 500 MG TUBE (12:47)
[2025-03-26] MEDS: FOLVITE 1 MG PO (12:47)
--- NOTE | 2025-03-26 14:06 | W.PN.INTV ---
Today's Communication / Plan
Recommendations
- Brain MRI, negative for acute CVA
- Switch inhaler therapy to DuoNeb nebulized
- Continue IV steroids
- Titrate supplemental oxygen to keep saturation above 89%
- DC Islas catheter
- Speech therapy evaluation, PT, OT
Assessment
-
Assessment: 64-year-old female with a past medical history of alcohol use disorder, hypertension, hypercholesterolemia, former tobacco smoker, anxiety and seasonal allergies who presents with change in mental status. Neighbors were unable to get
hold of the patient since the night prior and she was found in bed incontinent of urine and speaking incoherently. Per the patient's sister, the patient had called UTI this past week. When she was in the ER, she was moaning and unable to answer
questions. Initially, she was afebrile to 99.9 �F, pulse rate 99, respiratory rate 24, BP 129/87 and saturating 91% on 5 L/min nasal cannula. Initial labs were pertinent for WBC 11.6, sodium 110, potassium 2.6, magnesium 1.4, TSH 0.1, free T41.97,
and urinalysis with +3 ketones; UDS was negative, alcohol level was negative and COVID-19 antigen also negative. Flu swab was negative. CT head showed no acute intracranial abnormality, and CXR also showed no acute cardiopulmonary process. In the
ER she was given 500 cc bolus of NS 0.9%, 100cc of 3% NS, magnesium, potassium and Ativan. She was admitted to the ICU for further care and Human Factors Scientist services consulted for additional management/recommendations.
03/24, patient was evaluated in the morning, noted to be unresponsive. There was minimal response to sternal rub. She had rattling secretions in her upper airways and was not able to protect her airway requiring emergent intubation and mechanical
ventilation. Patient also noted to have bilateral wheezing on exam.
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
Assessment and plan:
#1. Acute respiratory failure due to inability to protect airway.
-Patient emergently intubated and mechanically ventilated (03/24)
-Successfully extubated to high flow nasal cannula 03/25. Currently on supplemental nasal cannula at 6 L.
#2. Acute encephalopathy, suspect metabolic. Dermott to be related to nonconvulsive seizures and possibly? Wernicke's encephalopathy. Patient was admitted for mental status changes felt to be related to history of alcoholism and hyponatremia for
which she was treated with 3% saline. 03/24 morning patient unresponsive. Sodium noted to be rather above 120. A stat blood gas was checked which did not show any evidence of hypercapnia.
-Patient was intubated and mechanically ventilated for airway protection 03/24, extubated 03/25
-Continue high-dose thiamine, 500 mg IV every 8 hour for presumed Wernicke's encephalopathy
-Stat CT head performed without any acute changes. f/u MRI negative for acute CVA
-Neurology consult, ordered EEG, patient felt to have nonconvulsive seizure, Keppra initiated per neurology service.
#3. Severe hyponatremia likely due to beer potomania. Admission sodium around 110.
- Sodium went up to 125 on 03/24, 1 dose of DDAVP given. Started D5W at 100 mL/h, sodium dropped down into more acceptable range. Off D5 now.
- Patient is off 3% saline now.
- Nephrology service on case, Na 131 this AM.
#4. Bronchospasm, suspect Acute COPD exacerbation with acute hypoxic respiratory failure. Patient quite wheezy on exam 03/24
- DuoNeb, 4 times daily, renewed
- Solu-Medrol 60 mg stat followed by 40 mg daily continued
- Completed 3 days of azithromycin
- Overall improved, however still has expiratory wheezing. DuoNeb changed from inhaler form to nebulized therapy
- Titrate supplemental O2 to keep saturation above 89%
#4. History of alcoholism.
-Concern for Wernicke's encephalopathy. Increased thiamine to 500 mg IV every 8 hours. Patient neurologically much improved
-Discontinued phenobarbital in view of encephalopathy. Will aim to minimize sedation to see how patient does neurologically.
DVT prophylaxis with Lovenox. GI prophylaxis.
Critical care statement: A total of 52 minutes of critical care time was provided for this patient today. This includes management of unstable vital signs, evaluation of the patient at bedside, reviewing the patient's pertinent medical records
including radiographs, microbiology, laboratory evaluations, and discussion with primary team, consultants, pharmacy, nutrition, physical therapy, case management, charge nurse, critical care nursing, and respiratory therapy.
Subjective Dataa
Subjective Data
Date of Service:
Date of Service: March 26, 2025
Subjective:
Patient comfortably sitting in chair in no acute distress. Continues to need supplemental oxygen.
Review of Systems
Genitourinary: Other (All 14 systems reviewed and negative except as stated above in the history of present illness.)
Objective Data
Data Reviewed
Vital Signs / I&O / Oxygen:
Vital Signs
Temp Pulse Resp BP Pulse Ox
97.6 F 90 12 141/88 94
03/26/25 11:20 03/26/25 07:12 03/26/25 07:12 03/26/25 07:00 03/26/25 08:20
Intake and Output
03/25/25 03/26/25 03/27/25
06:59 06:59 06:59
Intake Total 640.6 / 640.6 562.2 / 562.2
Output Total 865 / 880 2099 / 2100
Balance -224.4 / -239.4 -1537.8 / -1537.8
SaO2 [CPAP] 95
SaO2 [A/C] 95
SaO2 94
Nasal Cannula flow liters per 6
minute
Physical Exam
General: Other (More awake and alert, opens eyes, follows simple commands.)
HEENT: Normocephalic
Cardiovascular: S1-S2
Respiratory: Wheeze and Other (Minimal end expiratory wheezing noted.)
GI: Soft and Non Distended
Neurology: Awake and Alert
Skin: Warm
Labs/Micro/Reports
Lab Data
03/26/25 04:04
Laboratory Results
03/25/25
16:14
pH 7.36
pCO2 41 H
pO2 68 L
HCO3 23.2
O2 Delivery Level
Microbiology
03/24/25 12:24 Tracheal Aspirate Respiratory Culture - Final
Usual Respiratory Marilou
03/24/25 12:24 Tracheal Aspirate Gram Stain - Final
--- NOTE | 2025-03-26 16:00 | PTCARENOTE ---
Pt napping for long intervals since returning from MRI. Other than c/o mouth ulcer, pt w/o complaint. Tapering O2 to 6l/min via Midflow NC w/ POx 95%. Occasional moist psychiatric np cough noted. Denies SOB. Pt incontinent of urine- pericare completed. Pt
repositioned and comfort care provided q2hr or more frequently. Neuro unchanged. No additional changes from previous assessment findings.
[2025-03-26] MEDS: LOVENOX 40 MG SC (17:11)
[2025-03-26 17:24] LABS: Blood Urea Nitrogen 11 mg/dl (7-17); Calcium 9.7 mg/dl (8.4-10.2); Carbon Dioxide 29 mmol/L (22-30); Chloride 94 mmol/L (98-107); Estimated Creatinine Clearance 74 ml/min; Glucose 116 mg/dl (70-99); Potassium 4.4 mmol/L (3.5-5.1); Sodium 131 mmol/L (135-145); eGFR > 60.00
[2025-03-26] MEDS: MAGIC OR MIRACLE MOUTHWASH 5 ML PO ×2 (18:24→20:30)
[2025-03-26 18:32] LABS: Glucose - Point of Care 107 mg/dl (70-99)
[2025-03-26 20:51] LABS: Glucose - Point of Care 105 mg/dl (70-99)
[2025-03-27] VITALS (27 sets, daily range): BP systolic 119–166; BP diastolic 88–127; BMI 19.5
--- NOTE | 2025-03-27 02:05 | PTCARENOTE ---
pt weaned to 4L NC. BM overnight, incontinent of urine. call ivy in reach.
[2025-03-27 05:55] LABS: Hematocrit 39.3 % (37.0-47.0); Hemoglobin 13.6 g/dL (12.0-16.0); Mean Corp Hgb Conc. 34.6 g/dL (33.0-37.0); Mean Corpuscular Hgb 36.1 pg (27.0-31.0); Mean Corpuscular Volume 104.2 fL (81.0-99.0); Mean Platelet Volume 9.3 fL (7.4-10.4); Platelet Count 240 10^3/uL (130-400); Red Blood Cell Count 3.77 10^6/uL (4.20-5.40); Red Cell Dist. Width 11.9 % (11.5-14.5); White Blood Cell Count 10.6 10^3/uL (4.8-10.8)
--- NOTE | 2025-03-27 05:55 | PTCARENOTE ---
pt remains on 4L NC, denies SOB. intermittent dry cough. offers no other complaints. call ivy in reach
[2025-03-27 06:09] LABS: Blood Urea Nitrogen 15 mg/dl (7-17); Calcium 9.4 mg/dl (8.4-10.2); Carbon Dioxide 27 mmol/L (22-30); Chloride 99 mmol/L (98-107); Estimated Creatinine Clearance 75 ml/min; Glucose 77 mg/dl (70-99); Potassium 4.1 mmol/L (3.5-5.1); Sodium 134 mmol/L (135-145); Triglycerides 137 mg/dl (10-149); eGFR > 60.00
[2025-03-27] MEDS: DUONEB 3 ML INH ×4 (07:51→19:47)
[2025-03-27 07:52] LABS: Glucose - Point of Care 78 mg/dl (70-99)
--- NOTE | 2025-03-27 08:00 | PTCARENOTE ---
Assumed care of pt at 0715 following shift report. Pt AOx2, forgetful to year. Denies pain. Pt currently on O2 @ 4l/min via NC w/ Pox 94%. Denies SOB. Physical assessment completed as documented. Repositioned and comfort care provided. Incont small
amount urine, pericare provided. Purewick removed, and covidien changed. Call ivy w/in pt reach. Breakfast ordered. Meds and assessment as documented. Bed exit alarm in use. Safe environment maintained.
[2025-03-27] MEDS: THIAMINE INJECTION 255 MG IV ×3 (08:52→23:56)
[2025-03-27] MEDS: MIRALAX TUBE ×2 (08:52→08:56)
[2025-03-27] MEDS: FOLVITE 1 MG PO (08:54)
[2025-03-27] MEDS: KEPPRA 500 MG IV ×2 (08:54→19:21)
[2025-03-27] MEDS: SOLU-MEDROL PF 40 MG IV (08:54)
[2025-03-27] MEDS: NSS (PRESERVATIVE FREE) 10 ML IV (08:54)
[2025-03-27] MEDS: PROTONIX IV 40 MG IV (08:55)
[2025-03-27] MEDS: MAGIC OR MIRACLE MOUTHWASH 5 ML PO ×3 (08:58→19:21)
--- NOTE | 2025-03-27 09:04 | W.PN.HOSP.TC ---
Today's Communication/Plan
-
CT of the chest. Echocardiogram.
Assessment / Plan
Assessment / Plan
Physical exam:
General: Acutely ill
HEENT: Normocephalic, Atraumatic and Moist Mucous Membranes
Respiratory: Decreased breath sounds bilateral; Negative Wheezes, Rales or Rhonchi
Cardiac: Regular Rhythm, tachycardic, and S1/S2
GI: Soft, Nontender and Nondistended
Musculoskeletal: No Clubbing, No Cyanosis and No Edema
Neuro: Alert oriented, no neurological deficits
Psych: Calm
A/P:
Acute respiratory failure:
S/p extubation
Oxygen supplementation
Sinus tachycardia:
Twelve-lead EKG
Obtain echocardiogram
Abnormal TSH free T4 but it was normal prior so repeat in a.m.
Plan to do CT of the chest to rule out PE
Discussed with pulmonary
Acute metabolic encephalopathy:
Alcohol versus seizure and or both
Neurology consulted by engineering inspection assistant
On AED, Keppra IV 500 mg every 12 hours
Plan for MRI of the brain
Severe hyponatremia:
Na up to 134 today
Has been on 3% saline and now off
Nephrology on board
Monitor
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
Suspect COPD exacerbation:
Pulm started on IV steroids and abx--> currently on prednisone 30 mg oral daily and azithromycin
Will need PFT when recover from acute illness
Alcohol use disorder:
Continue MSA protocol
Precedex drip is off
Phenobarbital discontinued
On thiamine and folate
Hypokalemia and hypomagnesia
Replete magnesium and potassium
Abnormal TSH-repeat TFTs in a.m. will reach out to endocrinology but hold on any medications for
Transaminitis likely secondary to alcohol
- Continue to monitor every so often
DVT prophylaxis:
Lovenox SQ
Code status:
Full code
Total time spent on today's encounter was 52 minutes which included time spent in counseling the patient/family regarding diagnosis and treatment plan as listed above, goals of care, and symptom management. Case was discussed with nursing staff,
specialists, and care coordinators/case management. All labs and imaging personally reviewed by me. Remainder the time spent in detailed review of previous records, lab data, imaging, and other medical provider documentation.
Anticipated Discharge: > 48 hours
Subjective/Interval History
-
Date of Service: March 27, 2025
Patient alert and coherent today. She is tachycardic though. Denies palpitations or lightheadedness.
Objective Data
-
Labs:
Laboratory Results
03/27/25
05:11
WBC 10.6
Hgb 13.6
Hct 39.3
Plt Count 240 D
Sodium 134 L
Potassium 4.1
Chloride 99
Carbon Dioxide 27
BUN 15
Creatinine 0.4 L
Glucose 77
Calcium 9.4
Vital Signs:
Vital Signs
Temp Pulse Resp BP Pulse Ox
97.6 F 112 22 153/97 94
03/27/25 07:55 03/27/25 09:00 03/27/25 09:00 03/27/25 09:00 03/27/25 08:00
I&O
03/26/25 03/27/25 03/28/25
06:59 06:59 06:59
Intake Total 562.2 / 562.2 480 / 480
Output Total 2099 / 2099 475 / 475
Balance -1537.8 / -1537.8
[2025-03-27 11:55] LABS: Glucose - Point of Care 135 mg/dl (70-99)
--- NOTE | 2025-03-27 11:58 | PTCARENOTE ---
Pt now more tachycardic into 120s, BP elevated, sa02 dropping to high 80s on 4L. Pt asked to void, was also incont large amount urine. No other complaints of pain, no fever. Moist non pro-cough noted, oral care provided. Neb and IS given by
Respiratory therapist Heriberto. 3 Family members at bedside, reminded of visiting policy of 2 ppl in room at a time, asked them to step out to let pt rest. Plan discussed with Drs. Paige and Terrie, orders rec'd for CT r/o PE, Echo, EEG per neuro.
--- NOTE | 2025-03-27 12:31 | W.PN.INTV ---
Today's Communication / Plan
Recommendations
- Discontinue Solu-Medrol, start prednisone 30 mg daily for 5 more days
- Continue DuoNeb while in hospital, switch to Anoro or Spiriva at discharge
- Outpatient follow-up with pulmonary clinic, information added to discharge section
- PT/OT, advance activity as tolerated
- CT PE for further evaluation considering ongoing oxygen need and episodic tachycardia.
Assessment
-
Assessment: 64-year-old female with a past medical history of alcohol use disorder, hypertension, hypercholesterolemia, former tobacco smoker, anxiety and seasonal allergies who presents with change in mental status. Neighbors were unable to get
hold of the patient since the night prior and she was found in bed incontinent of urine and speaking incoherently. Per the patient's sister, the patient had called UTI this past week. When she was in the ER, she was moaning and unable to answer
questions. Initially, she was afebrile to 99.9 �F, pulse rate 99, respiratory rate 24, BP 129/87 and saturating 91% on 5 L/min nasal cannula. Initial labs were pertinent for WBC 11.6, sodium 110, potassium 2.6, magnesium 1.4, TSH 0.1, free T41.97,
and urinalysis with +3 ketones; UDS was negative, alcohol level was negative and COVID-19 antigen also negative. Flu swab was negative. CT head showed no acute intracranial abnormality, and CXR also showed no acute cardiopulmonary process. In the
ER she was given 500 cc bolus of NS 0.9%, 100cc of 3% NS, magnesium, potassium and Ativan. She was admitted to the ICU for further care and Soaping Machine Back Tender services consulted for additional management/recommendations.
03/24, patient was evaluated in the morning, noted to be unresponsive. There was minimal response to sternal rub. She had rattling secretions in her upper airways and was not able to protect her airway requiring emergent intubation and mechanical
ventilation. Patient also noted to have bilateral wheezing on exam.
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
Assessment and plan:
#1. Acute respiratory failure due to inability to protect airway.
-Patient emergently intubated and mechanically ventilated (03/24)
-Successfully extubated to high flow nasal cannula 03/25. Currently on supplemental nasal cannula at 3L.
#2. Acute encephalopathy, suspect metabolic. Resolved. Patient awake, alert and interactive now. [place] to be related to nonconvulsive seizures and possibly? Wernicke's encephalopathy. Patient was admitted for mental status changes felt to be
related to history of alcoholism and hyponatremia for which she was treated with 3% saline. 03/24 morning patient unresponsive. Sodium noted to be rather above 120. A stat blood gas was checked which did not show any evidence of hypercapnia.
-Patient was intubated and mechanically ventilated for airway protection 03/24, extubated 03/25
-Continue high-dose thiamine, 500 mg IV every 8 hour for presumed Wernicke's encephalopathy
-Stat CT head performed without any acute changes. f/u MRI negative for acute CVA
-Neurology consult, ordered EEG, patient felt to have nonconvulsive seizure, Keppra initiated per neurology service.
#3. Severe hyponatremia likely due to beer potomania. Admission sodium around 110.
- Sodium went up to 125 on 03/24, 1 dose of DDAVP given. Started D5W at 100 mL/h, sodium dropped down into more acceptable range. Off D5 now.
- Patient is off 3% saline now.
- Nephrology service on case, Na 134 this AM.
#4. Bronchospasm, suspect Acute COPD exacerbation with acute hypoxic respiratory failure. Patient quite wheezy on exam 03/24, continues to improve
- Wheezing resolved, switch IV Solu-Medrol to prednisone 30 mg daily for 5 more days
- Continue DuoNeb 4 times daily while in hospital, recommend starting on Spiriva or Anoro at discharge. Patient will need outpatient workup and will follow-up with pulmonary clinic as outpatient, information added to discharge section.
- Completed 3 days of azithromycin
- In view of continued supplemental oxygen need as well as intermittent tachycardia, will proceed with CT PE to evaluate for any venous thromboembolism. Patient has been on DVT prophylaxis along.
#4. History of alcoholism.
-Concern for Wernicke's encephalopathy. Continue high-dose thiamine. Patient neurologically much improved
-Discontinued phenobarbital in view of encephalopathy. Will aim to minimize sedation.
DVT prophylaxis with Lovenox
Critical care statement: A total of 45 minutes of critical care time was provided for this patient today. This includes management of unstable vital signs, evaluation of the patient at bedside, reviewing the patient's pertinent medical records
including radiographs, microbiology, laboratory evaluations, and discussion with primary team, consultants, pharmacy, nutrition, physical therapy, case management, charge nurse, critical care nursing, and respiratory therapy.
Subjective Dataa
Subjective Data
Date of Service:
Date of Service: March 27, 2025
Subjective:
Patient awake, alert, comfortably sitting in bed. No respiratory distress. No pleuritic discomfort reported.
Review of Systems
Genitourinary: Other (All 14 systems reviewed and negative except as stated above in the history of present illness.)
Objective Data
Data Reviewed
Vital Signs / I&O / Oxygen:
Vital Signs
Temp Pulse Resp BP Pulse Ox
98.0 F 115 20 151/111 88
03/27/25 12:06 03/27/25 11:37 03/27/25 11:37 03/27/25 11:36 03/27/25 11:37
Intake and Output
03/26/25 03/27/25 03/28/25
06:59 06:59 06:59
Intake Total 562.2 / 562.2 480 / 480 495 / 495
Output Total 2100 / 2100 475 / 475 300 / 300
Balance -1537.8 / -1537.8 5 195 / 195
SaO2 [CPAP] 95
SaO2 [A/C] 95
SaO2 88
Nasal Cannula flow liters per 4
minute
Physical Exam
General: Comfortable
HEENT: Normocephalic
Cardiovascular: S1-S2 (Intermittently tachycardic)
Respiratory: Other (No wheezing noted this morning)
GI: Soft and Non Distended
Neurology: Awake and Alert
Skin: Warm
Labs/Micro/Reports
Lab Data
03/27/25 05:11
03/27/25 05:11
Microbiology
03/24/25 12:24 Tracheal Aspirate Respiratory Culture - Final
Usual Respiratory Marilou
03/24/25 12:24 Tracheal Aspirate Gram Stain - Final
--- NOTE | 2025-03-27 13:57 | PTCARENOTE ---
CT chest taken. Pt less tachycardic now, HR 116. HTN continues. Home med list discussed with MDs, Dr. Paige will resume home dose Atenolol. wireless field technician now in room. Son back in room at bedside.
[2025-03-27] MEDS: TENORMIN 100 MG PO (14:33)
--- NOTE | 2025-03-27 15:08 | EEGC.RPT ---
Continuous EEG Report
Recording
Start Date of Data Reviewed: 03/27/25
End Date of Data Reviewed: 03/27/25
Report
TECHNICAL REMARKS: This is a technically satisfactory eighteen channel record employing 21 disc electrodes applied according to a measured international 10-20 electrode placement system. There were no significant technical difficulties. The study
was done on a [employer] System.
STUDY DURATION: 28 minutes and 2 seconds.
MEDICATIONS: Keppra
CLINICAL HISTORY: This is a 64-year-old woman with encephalopathy. This study was requested to look for epileptiform activity.
REPORT: At the onset of the EEG, the patient is in altered mental status. The background activity consists of 6-7 hz, impersistent, posteriorly dominant, moderate amplitude, symmetric, and rhythmic activity. Intermittent generalized delta slowing
lasting for 1-2 seconds was present. Stepwise intermittent photic stimulation did not induce additional abnormalities. Hyperventilation was not performed. N2 sleep was reached.
IMPRESSION: This is an abnormal awake and asleep EEG due to a moderate to severe generalized slowing. This finding indicates diffuse cerebral dysfunction, nonspecific in terms of etiology. No epileptiform abnormalities were seen.
--- NOTE | 2025-03-27 16:37 | PTCARENOTE ---
Pt assisted oob to chair at approx 15:30, pericare for large amount incontinence of urine provided, pt ordering dinner with assistance of son. x2 assist co chair with unsteady gait. Pt now back into bed for echo. BPs improving s/p administration of
atenolol, currently 131/94. Call ivy in reach.
[2025-03-27] MEDS: LOVENOX 40 MG SC (17:14)
--- NOTE | 2025-03-27 17:17 | PTCARENOTE ---
Pt coughing with dinner tray, denies trouble swallowing food and states 'I have a cold.' She had not been coughing with her smoothie and sami onel. Pt continues with moist cough so dinner tray taken away. Sa02 remains stable at 97% on 4L. Will
continue to monitor and pass info onto next RN.
[2025-03-27 22:02] LABS: Glucose - Point of Care 108 mg/dl (70-99)
[2025-03-28] VITALS (8 sets, daily range): BP systolic 123–149; BP diastolic 79–101
[2025-03-28 05:21] LABS: Hematocrit 38.5 % (37.0-47.0); Hemoglobin 13.6 g/dL (12.0-16.0); Mean Corp Hgb Conc. 35.3 g/dL (33.0-37.0); Mean Corpuscular Hgb 36.9 pg (27.0-31.0); Mean Corpuscular Volume 104.3 fL (81.0-99.0); Mean Platelet Volume 8.9 fL (7.4-10.4); Platelet Count 252 10^3/uL (130-400); Red Blood Cell Count 3.69 10^6/uL (4.20-5.40); Red Cell Dist. Width 11.8 % (11.5-14.5); White Blood Cell Count 9.1 10^3/uL (4.8-10.8)
[2025-03-28 05:48] LABS: Blood Urea Nitrogen 14 mg/dl (7-17); Calcium 9.6 mg/dl (8.4-10.2); Carbon Dioxide 26 mmol/L (22-30); Chloride 100 mmol/L (98-107); Estimated Creatinine Clearance 75 ml/min; Glucose 82 mg/dl (70-99); Potassium 3.8 mmol/L (3.5-5.1); Sodium 134 mmol/L (135-145); eGFR > 60.00
[2025-03-28] MEDS: DUONEB 3 ML INH (07:20)
--- NOTE | 2025-03-28 07:57 | W.PN.PUL3 ---
Addendum entered and electronically signed by Charity Falcon MD 03/28/25 08:55:
Patient had sudden desaturation into mid 80's. Stat CXR with increased lower lobe reticular opacities.
- Concern for ongoing aspiration. Increased cough after dinner reported.
- NPO, speech therapy eval
- HFNC to maintain sats >90%
- Incentive spirometry, IV Unasyn.
- FLutter valve
Additional 25 min of time spent evaluating and managing.
Original Note:
Today's Communication / Plan
-
- Change IV thiamine to 200 mg p.o. daily
- Start Spiriva once daily, change DuoNebs to as needed continue prednisone as ordered
- Continue speech therapy evaluation for concern for oropharyngeal dysphagia/aspiration
- Outpatient follow-up with pulmonary clinic after discharge, information added to discharge section
- Pulmonary service will sign off, please call as needed
Assessment
-
Assessment: 64-year-old female with a past medical history of alcohol use disorder, hypertension, hypercholesterolemia, former tobacco smoker, anxiety and seasonal allergies who presents with change in mental status. Neighbors were unable to get
hold of the patient since the night prior and she was found in bed incontinent of urine and speaking incoherently. Per the patient's sister, the patient had called UTI this past week. When she was in the ER, she was moaning and unable to answer
questions. Initially, she was afebrile to 99.9 �F, pulse rate 99, respiratory rate 24, BP 129/87 and saturating 91% on 5 L/min nasal cannula. Initial labs were pertinent for WBC 11.6, sodium 110, potassium 2.6, magnesium 1.4, TSH 0.1, free T41.97,
and urinalysis with +3 ketones; UDS was negative, alcohol level was negative and COVID-19 antigen also negative. Flu swab was negative. CT head showed no acute intracranial abnormality, and CXR also showed no acute cardiopulmonary process. In the
ER she was given 500 cc bolus of NS 0.9%, 100cc of 3% NS, magnesium, potassium and Ativan. She was admitted to the ICU for further care and Power Project Manager services consulted for additional management/recommendations.
03/24, patient was evaluated in the morning, noted to be unresponsive. There was minimal response to sternal rub. She had rattling secretions in her upper airways and was not able to protect her airway requiring emergent intubation and mechanical
ventilation. Patient also noted to have bilateral wheezing on exam.
Chronic conditions TAG MARKER: Hypertension, alcohol use disorder, hypercholesterolemia, anxiety, seasonal allergies
Assessment and plan:
#1. Acute respiratory failure due to inability to protect airway.
-Patient emergently intubated and mechanically ventilated (03/24)
-Successfully extubated to high flow nasal cannula 03/25. Currently on supplemental nasal cannula at 2L.
#2. Acute encephalopathy, suspect metabolic. Resolved. Patient awake, alert and interactive now. [place] to be related to nonconvulsive seizures and possibly? Wernicke's encephalopathy. Patient was admitted for mental status changes felt to be
related to history of alcoholism and hyponatremia for which she was treated with 3% saline. 03/24 morning patient unresponsive. Sodium noted to be rather above 120. A stat blood gas was checked which did not show any evidence of hypercapnia.
-Patient was intubated and mechanically ventilated for airway protection 03/24, extubated 03/25
-Received high-dose thiamine, 500 mg IV every 8 hour for presumed Wernicke's encephalopathy, switch to PO
-Stat CT head performed without any acute changes. f/u MRI negative for acute CVA
-Neurology consult, ordered EEG, patient felt to have nonconvulsive seizure, Keppra initiated per neurology service.
#3. Severe hyponatremia likely due to beer potomania. Admission sodium around 110.
- Sodium went up to 125 on 03/24, 1 dose of DDAVP given. Started D5W at 100 mL/h, sodium dropped down into more acceptable range. Off D5 now.
- Patient is off 3% saline now.
- Nephrology service on case, Na normal now.
#4. Bronchospasm, suspect Acute COPD exacerbation with acute hypoxic respiratory failure. Patient quite wheezy on exam 03/24, continues to improve
- Wheezing resolved, switched IV Solu-Medrol to prednisone 30 mg daily for 5 more days
- Start Spiriva, change Duoneb to PRN
- Completed 3 days of azithromycin
- CT-PE negative for PE. Lower lobe tree in bud changes suggestive of aspiration. Speech therapy eval and treat.
#4. History of alcoholism.
-Concern for Wernicke's encephalopathy. Received high-dose thiamine. Patient neurologically much improved
-Discontinued phenobarbital in view of encephalopathy. Will aim to minimize sedation.
DVT prophylaxis with Lovenox
Total time spent on this consultation/encounter _38___ minutes which includes review of history, physical exam, medications, laboratory data, personal review of imaging, extensive review of outpatient records, discussion with care team and
respiratory therapy.
Subjective Data
-
Date of Service:
Date of Service: March 28, 2025
Subjective:
Patient comfortably lying in bed in no acute distress.
Review of Systems
Genitourinary: Other (All 14 systems reviewed and negative except as stated above in the history of present illness.)
Objective Data
Data Reviewed
Vital Signs / I&O / Oxygen:
Vital Signs
Temp Pulse Resp BP Pulse Ox
96.7 F L 65 20 123/79 95
03/28/25 03:11 03/28/25 07:23 03/28/25 07:23 03/28/25 04:00 03/28/25 07:23
Intake and Output
03/27/25 03/28/25 03/29/25
06:59 06:59 06:59
Intake Total 480 / 480 735 / 735
Output Total 475 / 475 300 / 300
Balance 5 / 5 435 / 435
SaO2 [CPAP] 95
SaO2 [A/C] 95
SaO2 95
Nasal Cannula flow liters per 2
minute
Physical Exam
General: Comfortable
HEENT: Normocephalic
Cardiovascular: S1-S2
Respiratory: Clear
GI: Non Tender
Neurology: Awake and Alert
Skin: Warm
Labs/Micro/Reports
Lab Data
03/28/25 05:12
03/28/25 05:12
Microbiology
03/24/25 12:24 Tracheal Aspirate Respiratory Culture - Final
Usual Respiratory Marilou
03/24/25 12:24 Tracheal Aspirate Gram Stain - Final
[2025-03-28 07:59] LABS: Glucose - Point of Care 74 mg/dl (70-99)
[2025-03-28] MEDS: SPIRIVA RESPIMAT 2.5 MCG 2 PUFF INH (08:11)
[2025-03-28] MEDS: DELTASONE 30 MG PO (08:47)
[2025-03-28] MEDS: TENORMIN 100 MG PO (08:47)
[2025-03-28] MEDS: FOLVITE 1 MG PO (08:48)
[2025-03-28] MEDS: KEPPRA 500 MG IV ×2 (08:48→19:37)
[2025-03-28] MEDS: VITAMIN B1 200 MG PO (09:02)
[2025-03-28] MEDS: MAGIC OR MIRACLE MOUTHWASH 5 ML PO ×2 (09:07→19:36)
--- NOTE | 2025-03-28 09:14 | PTCARENOTE ---
Pt rec'd in report from night RN Kimani at 07:15. Speech therapist contacted to discuss re evaluating patient before breakfast, as she had been coughing on dinner tray yesterday evening. She will be up to eval patient. Pt was awake and alert x3
upon walking rounds, satting 95% on 2L. Thuan discussed, pt in agreement to hold off on breakfast as she needs to see speech therapist again. Pt then rang to go to bathroom approx 0830 and was found satting in low 80s which continued to drop down to
70s. Pt completely asymptomatic. Pleth solid, all connections checked, pt encouraged to deep breathe and cough. Pt out to void in bedside commode, 400 mls urine. Then seated up in chair. Moist non productive cough noted. Lungs sounds auscultated,
diminshed breath sounds with scatt crackles in bilat bases. Oral care provided, 02 increased to 10L, then added non rebreather, RT and Cane Burner at bedside. Stat CXR done. Pt placed on high flow 02. IS and Acapella provided, education for both
devices done. Pts xray reviewed by Cane Burner Dr. Falcon. Unasyn ordered. Pt made NPO except meds. Pt now satting 91% on 50L/70%. She is doing acapella and IS every commercial break. Discussed limiting visitors to just her son today to allow her to
focus energy on breathing. Call ivy in hand.
--- NOTE | 2025-03-28 09:33 | W.PN.HOSP.TC ---
Today's Communication/Plan
-
Antibiotics. Oxygen. Speech therapy eval
Assessment / Plan
Assessment / Plan
Physical exam:
General: Acutely ill
HEENT: Normocephalic, Atraumatic and Moist Mucous Membranes
Respiratory: Decreased breath sounds bilateral; Negative Wheezes, Rales. Some rhonchi bilateral
Cardiac: Regular Rhythm, tachycardic, and S1/S2
GI: Soft, Nontender and Nondistended
Musculoskeletal: No Clubbing, No Cyanosis and No Edema
Neuro: Alert oriented, no neurological deficits
Psych: Calm
A/P:
Acute respiratory failure:
S/p extubation
Oxygen supplementation
Recurrent hypoxia felt to be related to aspiration
Aspiration pneumonia:
Started on IV Unasyn
N.p.o.
Speech therapy eval
Seen repeated chest x-ray
Oxygen supplement
Sinus tachycardia:
Reactive to acute illness
CTA negative for PE
Echocardiogram unremarkable
Abnormal TSH due to steroid-discussed with endocrinology
Acute metabolic encephalopathy:
Alcohol versus seizure and or both
Neurology consulted by terrapin fisher
On AED, Keppra IV 500 mg every 12 hours
Plan for MRI of the brain
Severe hyponatremia:
Na up to 134 today
Has been on 3% saline and now off
Nephrology on board
Monitor
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
Suspect COPD exacerbation:
Pulm started on IV steroids and abx--> currently on prednisone 30 mg oral daily and azithromycin
Will need PFT when recover from acute illness
Alcohol use disorder:
Continue MSA protocol
Precedex drip is off
Phenobarbital discontinued
On thiamine and folate
Hypokalemia and hypomagnesia
Replete magnesium and potassium
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 Can repeat TFT as outpatient
Transaminitis likely secondary to alcohol
- Continue to monitor every so often
DVT prophylaxis:
Lovenox SQ
Code status:
Full code
Total time spent on today's encounter was 52 minutes which included time spent in counseling the patient/family regarding diagnosis and treatment plan as listed above, goals of care, and symptom management. Case was discussed with nursing staff,
specialists, and care coordinators/case management. All labs and imaging personally reviewed by me. Remainder the time spent in detailed review of previous records, lab data, imaging, and other medical provider documentation.
Anticipated Discharge: > 48 hours
Subjective/Interval History
-
Date of Service: March 28, 2025
Patient became more hypoxic earlier today and required increased oxygen. Pulmonary changed her status to n.p.o. and obtained a chest x-ray
Objective Data
-
Labs:
Laboratory Results
03/28/25
05:12
WBC 9.1
Hgb 13.6
Hct 38.5
Plt Count 252
Sodium 134 L
Potassium 3.8
Chloride 100
Carbon Dioxide 26
BUN 14
Creatinine 0.4 L
Glucose 82
Calcium 9.6
Vital Signs:
Vital Signs
Temp Pulse Resp BP Pulse Ox
97.4 F 83 20 149/95 89
03/28/25 08:01 03/28/25 08:47 03/28/25 07:23 03/28/25 08:47 03/28/25 08:56
I&O
03/27/25 03/28/25 03/29/25
06:59 06:59 06:59
Intake Total 480 / 480 735 / 735
Output Total 475 / 475 300 / 300 400 / 400
Balance 5 / 5 435 / 435 -400 / -400
[2025-03-28] MEDS: UNASYN IV ×3 (10:44→22:02)
--- NOTE | 2025-03-28 12:49 | PTCARENOTE ---
Pt remains satting in high 80s on high flow. Deep breathing and coughing encouraged. Visitors (son Keshav and then 2 neighbor/friends) stopped in and left after update from nursing. Verbalized understanding that patient needs rest. Pt now 92% on high
flow. Remains seated in chair.
[2025-03-28 13:28] LABS: Glucose - Point of Care 100 mg/dl (70-99)
--- NOTE | 2025-03-28 15:15 | PTCARENOTE ---
Sa02 maintained in high 90s for last few hours, Dr. Falcon said ok to begin weaning down hiflow, RT at bedside to wean. See flowsheet. Pt assisted back to bed , CHG bath provided for large amount urinary incontinence.
[2025-03-28] MEDS: LOVENOX 40 MG SC (16:24)
[2025-03-28 17:15] LABS: Glucose - Point of Care 87 mg/dl (70-99)
--- NOTE | 2025-03-28 21:01 | PTCARENOTE ---
Received pt from previous RN. Pt is AAOx3, forgetful at times, bed alarm in place. Pt is NSR on the monitor. On highflow 50L 35%, O2 sat 92%, lungs diminished/coarse. Shampoo cap provided. Provided pt with ice chips. SCDs in place. Call ivy in
reach. Safe environment maintained.
[2025-03-28] MEDS: DEXTROSE 50% SYRINGE 12.5 GRAMS IV (23:17)
[2025-03-28 23:25] LABS: Glucose - Point of Care 59 mg/dl (70-99)
[2025-03-28 23:48] LABS: Glucose - Point of Care 132 mg/dl (70-99)
--- NOTE | 2025-03-28 23:50 | PTCARENOTE ---
Pt BS 59, pt a little diaphoretic/drowsy. Dextrose given (see MAR). ACCOUNT ANALYST notified.
[2025-03-29] VITALS (12 sets, daily range): BP systolic 123–162; BP diastolic 80–113
[2025-03-29] MEDS: UNASYN IV ×4 (03:53→21:22)
[2025-03-29 04:06] LABS: % Basophils 1.1 % (0-2); % Eosinophils 0.4 % (0-6); % Lymphocytes 25.9 % (20.5-51.1); % Monocytes 17.3 % (1.7-9.3); % Neutrophils 53.3 % (42.2-75.2); Absolute Basophils 0.1 10^3/uL (0-0.2); Absolute Immature Granulocytes 0.2 10^3/uL (0-0.05); Absolute Lymphocytes 2.2 10^3/uL (1.2-3.4); Absolute Monocytes 1.5 10^3/uL (0.1-0.6); Absolute Neutrophils 4.6 10^3/uL (1.4-6.5); Hematocrit 38.6 % (37.0-47.0); Hemoglobin 13.9 g/dL (12.0-16.0); Mean Corpuscular Hgb 36.5 pg (27.0-31.0); Mean Corpuscular Volume 101.3 fL (81.0-99.0); Mean Platelet Volume 8.9 fL (7.4-10.4); Nucleated Red Blood Cells % 0 %; Platelet Count 295 10^3/uL (130-400); Red Blood Cell Count 3.81 10^6/uL (4.20-5.40); Red Cell Dist. Width 11.6 % (11.5-14.5); White Blood Cell Count 8.6 10^3/uL (4.8-10.8)
[2025-03-29 04:24] LABS: Blood Urea Nitrogen 16 mg/dl (7-17); Calcium 9.3 mg/dl (8.4-10.2); Carbon Dioxide 24 mmol/L (22-30); Chloride 99 mmol/L (98-107); Estimated Creatinine Clearance 75 ml/min; Glucose 72 mg/dl (70-99); Potassium 3.6 mmol/L (3.5-5.1); Sodium 134 mmol/L (135-145); eGFR > 60.00
[2025-03-29 05:15] LABS: Glucose - Point of Care 56 mg/dl (70-99)
[2025-03-29] MEDS: DEXTROSE 50% SYRINGE 12.5 GRAMS IV (05:27)
[2025-03-29 05:35] LABS: Glucose - Point of Care 50 mg/dl (70-99)
[2025-03-29] MEDS: D5/0.9% SODIUM CHLORIDE 1000 IV (05:42)
[2025-03-29] MEDS: TYLENOL 650 MG PO ×2 (05:43→15:18)
[2025-03-29 06:00] LABS: Glucose - Point of Care 101 mg/dl (70-99)
[2025-03-29] MEDS: VENTOLIN NEBULES 2.5 MG INH (06:07)
--- NOTE | 2025-03-29 06:50 | PTCARENOTE ---
Pt desatting O2 sat 83% on highflow 50L 35%. RT TT highflow increased to 50L 55%, O2 sat 90%. O2 sat dropped to 86%, NRB placed on top of highflow O2 sat 93%.
[2025-03-29] MEDS: DELTASONE 30 MG PO (07:31)
[2025-03-29] MEDS: VITAMIN B1 200 MG PO (07:31)
[2025-03-29] MEDS: TENORMIN 100 MG PO (07:31)
[2025-03-29] MEDS: KEPPRA 500 MG IV ×2 (07:32→19:16)
[2025-03-29] MEDS: FOLVITE 1 MG PO (07:32)
[2025-03-29] MEDS: SPIRIVA RESPIMAT 2.5 MCG 2 PUFF INH (07:45)
--- NOTE | 2025-03-29 08:00 | PTCARENOTE ---
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 Patient nis AAOx3, can be forgetful at times but currently appropriate. She is sinus rhythm on monitor and on high flow 50L50%. She is NPO but allowed meds and using bed ervin to urinate. Her skin is intact but
does have a large bruise on her left mid back. Currently has D5NS infusing into left AC for hypoglycemia overnight. will review orders, call ivy within reach.
[2025-03-29 08:13] LABS: Glucose - Point of Care 120 mg/dl (70-99)
--- NOTE | 2025-03-29 08:34 | W.PN.PUL3 ---
Today's Communication / Plan
-
- CXR stat
- ABG shows pO2 131 and Sats 99% while pulse ox displays 86%.. Suspect erroneous measurement
- Changed Spiriva to Duoneb qid.
- Continue Prednisone and Unasyn
- Check Procalcitonin in AM.
Assessment
-
Assessment: 64-year-old female with a past medical history of alcohol use disorder, hypertension, hypercholesterolemia, former tobacco smoker, anxiety and seasonal allergies who presents with change in mental status. Neighbors were unable to get
hold of the patient since the night prior and she was found in bed incontinent of urine and speaking incoherently. Per the patient's sister, the patient had called UTI this past week. When she was in the ER, she was moaning and unable to answer
questions. Initially, she was afebrile to 99.9 �F, pulse rate 99, respiratory rate 24, BP 129/87 and saturating 91% on 5 L/min nasal cannula. Initial labs were pertinent for WBC 11.6, sodium 110, potassium 2.6, magnesium 1.4, TSH 0.1, free T41.97,
and urinalysis with +3 ketones; UDS was negative, alcohol level was negative and COVID-19 antigen also negative. Flu swab was negative. CT head showed no acute intracranial abnormality, and CXR also showed no acute cardiopulmonary process. In the
ER she was given 500 cc bolus of NS 0.9%, 100cc of 3% NS, magnesium, potassium and Ativan. She was admitted to the ICU for further care and [employer] services consulted for additional management/recommendations.
03/24, patient was evaluated in the morning, noted to be unresponsive. There was minimal response to sternal rub. She had rattling secretions in her upper airways and was not able to protect her airway requiring emergent intubation and mechanical
ventilation. Patient also noted to have bilateral wheezing on exam.
Chronic conditions [employer]: Hypertension, alcohol use disorder, hypercholesterolemia, anxiety, seasonal allergies
03/29. on HFNC, 85% Sats on 50% FiO2 @ 50 L flow. 142 systolic, not on any pressors. on D5/NS @ 60/h
Afebrile, no cough or expectoration today.
Hemodynamically stable, not needing any pressors.
Hemoglobin, WBC count and electrolytes unremarkable.
Assessment and plan:
#1. Acute respiratory failure due to inability to protect airway.
-Patient emergently intubated and mechanically ventilated (03/24)
-Successfully extubated to high flow nasal cannula 03/25. Currently on HFNC.
#1a. Hypoxia, ?spurious.
- Pulse ox displayed 86% saturation on high flow nasal cannula. I performed an ABG at the same time which showed a PO2 of 131 and a arterial blood oxygen saturation of 99.3%
- Change pulse ox meter changed to hold wiring and try at different sites to see if we can get a accurate reading
- Patient has no cough this morning, x-ray is unchanged. No wheezing on exam. Continue current treatment.
#2. Acute encephalopathy, suspect metabolic. Resolved. Patient awake, alert and interactive now. [place] to be related to nonconvulsive seizures and possibly? Wernicke's encephalopathy. Patient was admitted for mental status changes felt to be
related to history of alcoholism and hyponatremia for which she was treated with 3% saline. 03/24 morning patient unresponsive. Sodium noted to be rather above 120. A stat blood gas was checked which did not show any evidence of hypercapnia.
-Patient was intubated and mechanically ventilated for airway protection 03/24, extubated 03/25
-Received high-dose thiamine, 500 mg IV every 8 hour for presumed Wernicke's encephalopathy, switch to PO
-Stat CT head performed without any acute changes. f/u MRI negative for acute CVA
-Neurology consult, ordered EEG, patient felt to have nonconvulsive seizure, Keppra initiated per neurology service.
#3. Severe hyponatremia likely due to beer potomania. Admission sodium around 110.
- Sodium went up to 125 on 03/24, 1 dose of DDAVP given. Started D5W at 100 mL/h, sodium dropped down into more acceptable range. Off D5 now.
- Patient is off 3% saline now.
- Nephrology service on case, Na normal now.
#4. Bronchospasm, suspect Acute COPD exacerbation with acute hypoxic respiratory failure. Patient quite wheezy on exam 03/24, continues to improve
- Wheezing resolved, switched IV Solu-Medrol to prednisone 30 mg daily for 5 more days
- Duoneb qid. Hold Spiriva
- Completed 3 days of azithromycin
- CT-PE negative for PE. Lower lobe tree in bud changes suggestive of aspiration. Speech therapy eval and treat. Unasyn started for concern for PNA, check PCT in AM and d/c antibiotics if negative.
#4. History of alcoholism.
-Concern for Wernicke's encephalopathy. Received high-dose thiamine. Patient neurologically much improved
-Discontinued phenobarbital in view of encephalopathy. Will aim to minimize sedation.
DVT prophylaxis with Lovenox
Total time spent on this consultation/encounter _38___ minutes which includes review of history, physical exam, medications, laboratory data, personal review of imaging, extensive review of outpatient records, discussion with care team and
respiratory therapy.
Subjective Data
-
Date of Service:
Date of Service: March 29, 2025
Subjective:
Comfortably sitting in bed, no cough this morning.
Review of Systems
Genitourinary: Other (All 14 systems reviewed and negative except as stated above in the history of present illness.)
Objective Data
Data Reviewed
Vital Signs / I&O / Oxygen:
Vital Signs
Temp Pulse Resp BP Pulse Ox
97.2 F 80 19 133/81 94
03/29/25 07:00 03/29/25 07:53 03/29/25 07:53 03/29/25 07:31 03/29/25 07:53
Intake and Output
03/28/25 03/29/25 03/30/25
06:59 06:59 06:59
Intake Total 735 / 735 420 / 480 120 / 120
Output Total 300 / 300 400 / 400
Balance 435 / 435 20 / 80 120 / 120
SaO2 [CPAP] 95
SaO2 [A/C] 95
SaO2 94
Nasal Cannula flow liters per 50
minute
Physical Exam
General: Comfortable
HEENT: Normocephalic
Cardiovascular: S1-S2
Respiratory: Clear and Other (No wheezing or rhonchi.)
GI: Non Tender
Neurology: Awake and Alert
Skin: Warm
Labs/Micro/Reports
Lab Data
03/29/25 03:59
03/29/25 03:59
Microbiology
03/24/25 12:24 Tracheal Aspirate Respiratory Culture - Final
Usual Respiratory Marilou
03/24/25 12:24 Tracheal Aspirate Gram Stain - Final
[2025-03-29 08:44] LABS: B.E. 2.9 mmol/L; HCO3 25.9 mmol/L (21-28); O2 Saturation % 99.6 % (94-98); PCO2 34 mmHg (32-35); PO2 131 mmHg (83-108); pH 7.49 (7.35-7.45)
--- NOTE | 2025-03-29 09:09 | PTCARENOTE ---
Dr. robertson at bedside to evaluate patient and obtained ABG. Gas is not correlating with pulse ox. attempted to get reading at multiple different places but saturation rarely goes above 86%. physician aware, cxr also obtained, patient does not
seem in any acute distress.
--- NOTE | 2025-03-29 09:39 | W.PN.HOSP.TC ---
Today's Communication/Plan
-
Antibiotics. PT OT. Oxygen supplement
Assessment / Plan
Assessment / Plan
Physical exam:
General: Acutely ill
HEENT: Normocephalic, Atraumatic and Moist Mucous Membranes
Respiratory: Decreased breath sounds bilateral; Negative Wheezes, Rales. Some rhonchi bilateral
Cardiac: Regular Rhythm, tachycardic, and S1/S2
GI: Soft, Nontender and Nondistended
Musculoskeletal: No Clubbing, No Cyanosis and No Edema
Neuro: Alert oriented, no neurological deficits
Psych: Calm
A/P:
Acute respiratory failure:
S/p extubation
Oxygen supplementation
Recurrent hypoxia felt to be related to aspiration but also pulse ox not picking up
Chest x-ray and procalcitonin per pulm
PT OT
Aspiration pneumonia:
Continue on IV Unasyn
Soft and bite-size diet
Speech therapy eval appreciated
Oxygen supplement
Sinus tachycardia:
Reactive to acute illness
CTA negative for PE
Echocardiogram unremarkable
Abnormal TSH due to steroid-discussed with endocrinology
Acute metabolic encephalopathy:
Alcohol versus seizure and or both
Neurology consulted by rn plastic surgery
On AED, Keppra IV 500 mg every 12 hours
MRI of the brain no acute abnormality
Severe hyponatremia:
Na up to 134 today
Has been on 3% saline and now off
Nephrology on board
Monitor
Suspect COPD exacerbation:
Pulm started on IV steroids and abx--> currently on prednisone 30 mg oral daily
Will need PFT when recover from acute illness
Alcohol use disorder:
Continue MSA protocol
Precedex drip is off
Phenobarbital discontinued
On thiamine and folate
Hypokalemia and hypomagnesia
Replete magnesium and potassium
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 Can repeat TFT as outpatient
Transaminitis likely secondary to alcohol
- Continue to monitor every so often
DVT prophylaxis:
Lovenox SQ
Code status:
Full code
Total time spent on today's encounter was 52 minutes which included time spent in counseling the patient/family regarding diagnosis and treatment plan as listed above, goals of care, and symptom management. Case was discussed with nursing staff,
specialists, and care coordinators/case management. All labs and imaging personally reviewed by me. Remainder the time spent in detailed review of previous records, lab data, imaging, and other medical provider documentation.
Anticipated Discharge: > 48 hours
Subjective/Interval History
-
Date of Service: March 29, 2025
Patient was hypoxic but pulse ox not picking up accurately. Denies chest pain or worsening shortness of breath. Afebrile
Objective Data
-
Labs:
Laboratory Results
03/29/25 03/29/25
03:59 08:35
WBC 8.6
Hgb 13.9
Hct 38.6
Plt Count 295
HCO3 25.9
Sodium 134 L
Potassium 3.6
Chloride 99
Carbon Dioxide 24
BUN 16
Creatinine 0.4 L
Glucose 72
Calcium 9.3
Vital Signs:
Vital Signs
Temp Pulse Resp BP Pulse Ox
97.2 F 78 15 145/102 95
03/29/25 07:00 03/29/25 08:00 03/29/25 08:00 03/29/25 08:00 03/29/25 08:00
I&O
03/28/25 03/29/25 03/30/25
06:59 06:59 06:59
Intake Total 735 / 735 420 / 480 180 / 180
Output Total 300 / 300 400 / 400
Balance 435 / 435 20 / 80 180 / 180
[2025-03-29] MEDS: DUONEB 3 ML INH ×3 (11:25→20:42)
[2025-03-29 12:04] LABS: Glucose - Point of Care 121 mg/dl (70-99)
--- NOTE | 2025-03-29 12:30 | PTCARENOTE ---
Patient tolerating diet. ok to D/C IV fluids per Dr. Falcon.
[2025-03-29] MEDS: LOVENOX 40 MG SC (17:09)
[2025-03-29 17:25] LABS: Glucose - Point of Care 100 mg/dl (70-99)
[2025-03-29] MEDS: MAGIC OR MIRACLE MOUTHWASH 5 ML PO (19:16)
--- NOTE | 2025-03-29 19:34 | PTCARENOTE ---
Received pt from previous RN. Pt is AAOx3, forgetful @ times. NSR on the monitor. Received pt on 12L midflow, weaned to 10L midflow, O2 sat 98%, lungs diminished, non-productive harsh cough. Pt c/o mouth pain, PRN magic mouthwash given (see MAR).
SCDs in place. Call ivy in reach. Safe environment maintained.
[2025-03-29 21:38] LABS: Glucose - Point of Care 106 mg/dl (70-99)
[2025-03-30] VITALS (15 sets, daily range): BP systolic 105–149; BP diastolic 68–104; PULSE 77; O2SAT 93
[2025-03-30] MEDS: UNASYN IV ×2 (03:59→11:53)
[2025-03-30 05:12] LABS: % Basophils 0.7 % (0-2); % Eosinophils 0.5 % (0-6); % Immature Granulocytes 3.7 % (0-0.5); % Lymphocytes 28.6 % (20.5-51.1); % Monocytes 16.8 % (1.7-9.3); % Neutrophils 49.7 % (42.2-75.2); Absolute Basophils 0.1 10^3/uL (0-0.2); Absolute Immature Granulocytes 0.3 10^3/uL (0-0.05); Absolute Lymphocytes 2.2 10^3/uL (1.2-3.4); Absolute Monocytes 1.3 10^3/uL (0.1-0.6); Absolute Neutrophils 3.7 10^3/uL (1.4-6.5); Hematocrit 35.3 % (37.0-47.0); Hemoglobin 12.7 g/dL (12.0-16.0); Mean Corpuscular Hgb 36.9 pg (27.0-31.0); Mean Corpuscular Volume 102.6 fL (81.0-99.0); Mean Platelet Volume 8.9 fL (7.4-10.4); Nucleated Red Blood Cells % 0 %; Platelet Count 310 10^3/uL (130-400); Red Blood Cell Count 3.44 10^6/uL (4.20-5.40); Red Cell Dist. Width 11.6 % (11.5-14.5); White Blood Cell Count 7.5 10^3/uL (4.8-10.8)
[2025-03-30 05:43] LABS: ALT (SGPT) 36 U/L (0-35); AST (SGOT) 29 U/L (14-36); Albumin 3.5 g/dl (3.5-5.0); Alkaline Phosphatase 63 U/L (38-126); Blood Urea Nitrogen 13 mg/dl (7-17); Calcium 8.8 mg/dl (8.4-10.2); Carbon Dioxide 24 mmol/L (22-30); Chloride 100 mmol/L (98-107); Estimated Creatinine Clearance 75 ml/min; Glucose 87 mg/dl (70-99); Potassium 3.3 mmol/L (3.5-5.1); Sodium 135 mmol/L (135-145); Total Bilirubin 0.8 mg/dl (0.2-1.3); Total Protein 5.8 g/dl (6.3-8.2); Triglycerides 150 mg/dl (10-149); eGFR > 60.00
[2025-03-30] MEDS: KCL 40 MEQ PO (06:15)
--- NOTE | 2025-03-30 07:42 | PTCARENOTE ---
Received patietn from date night sitter. patient is AAOx3, she has been weaned down to 4L nasal cannula. Patient is sinus rhythm on montor. She has a soft bitesized diet ordered and has continued to use bed side commode and bed ervin appropriately. IMU
level of care.
[2025-03-30] MEDS: DUONEB 3 ML INH (07:43)
[2025-03-30] MEDS: VITAMIN B1 200 MG PO (07:49)
[2025-03-30] MEDS: TENORMIN 100 MG PO (07:49)
[2025-03-30] MEDS: DELTASONE 30 MG PO (07:50)
[2025-03-30] MEDS: FOLVITE 1 MG PO (07:50)
[2025-03-30] MEDS: KEPPRA 500 MG IV (07:50)
[2025-03-30 07:58] LABS: Glucose - Point of Care 96 mg/dl (70-99)
[2025-03-30] MEDS: SYMBICORT 160/4.5 MCG INHALER 2 PUFF INH ×2 (08:37→20:22)
[2025-03-30] MEDS: SPIRIVA RESPIMAT 2.5 MCG INH (08:43)
--- NOTE | 2025-03-30 09:58 | W.PN.HOSP.TC ---
Today's Communication/Plan
-
Monitor respiratory status and wean oxygen as able
Assessment / Plan
Assessment / Plan
Physical exam:
General: Acutely ill
HEENT: Normocephalic, Atraumatic and Moist Mucous Membranes
Respiratory: Decreased breath sounds bilateral; Negative Wheezes, Rales. Some rhonchi bilateral
Cardiac: Regular Rhythm, tachycardic, and S1/S2
GI: Soft, Nontender and Nondistended
Musculoskeletal: No Clubbing, No Cyanosis and No Edema
Neuro: Alert oriented, no neurological deficits
Psych: Calm
A/P:
Acute respiratory failure:
S/p extubation
Oxygen supplementation, remains on 5 L of oxygen-wean as able
Recurrent hypoxia felt to be related to aspiration but also pulse ox not picking up
Chest x-ray and procalcitonin per pulm
PT OT
Aspiration pneumonia:
Finish course of IV Unasyn
Soft and bite-size diet
Speech therapy eval appreciated
Oxygen supplement
Sinus tachycardia:
Reactive to acute illness
CTA negative for PE
Echocardiogram unremarkable
Abnormal TSH due to steroid-discussed with endocrinology
Acute metabolic encephalopathy:
Alcohol versus seizure and or both
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
On AED, Keppra IV 500 mg every 12 hours
MRI of the brain no acute abnormality
Severe hyponatremia:
Na up to 135 today
Has been on 3% saline and now off
Nephrology on board
Monitor
Hypokalemia:
Replete and trend
Suspect COPD exacerbation:
Pulm started on IV steroids and abx--> currently on prednisone 30 mg oral daily
Will need PFT when recover from acute illness
Alcohol use disorder:
Continue MSA protocol
Precedex drip is off
Phenobarbital discontinued
On thiamine and folate
Hypokalemia and hypomagnesia
Replete magnesium and potassium
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 Can repeat TFT as outpatient
Transaminitis likely secondary to alcohol
- Continue to monitor every so often
DVT prophylaxis:
Lovenox SQ
Code status:
Full code
Total time spent on today's encounter was 52 minutes which included time spent in counseling the patient/family regarding diagnosis and treatment plan as listed above, goals of care, and symptom management. Case was discussed with nursing staff,
specialists, and care coordinators/case management. All labs and imaging personally reviewed by me. Remainder the time spent in detailed review of previous records, lab data, imaging, and other medical provider documentation.
Anticipated Discharge: > 48 hours
Subjective/Interval History
-
Date of Service: March 30, 2025
Patient denies any nausea or vomiting. Remains on supplemental oxygen. Afebrile
Objective Data
-
Labs:
Laboratory Results
03/30/25
04:56
WBC 7.5
Hgb 12.7
Hct 35.3 L
Plt Count 310
Sodium 135
Potassium 3.3 L
Chloride 100
Carbon Dioxide 24
BUN 13
Creatinine 0.4 L
Glucose 87
Calcium 8.8
Total Bilirubin 0.8
AST 29
ALT 36 H
Alkaline Phosphatase 63
Vital Signs:
Vital Signs
Temp Pulse Resp BP Pulse Ox
98.0 F 86 15 115/84 93
03/30/25 08:00 03/30/25 08:00 03/30/25 08:00 03/30/25 08:00 03/30/25 08:43
I&O
03/29/25 03/30/25 03/31/25
06:59 06:59 06:59
Intake Total 420 / 480 1909
Output Total 400 / 400
Balance 1909
--- NOTE | 2025-03-30 10:00 | W.PN.PUL3 ---
Addendum entered and electronically signed by Charity Falcon MD 03/30/25 11:34:
Procalcitonin <0.05.
D/c Unasyn
Original Note:
Today's Communication / Plan
-
- DC DuoNeb, start Symbicort and Spiriva. Patient needs triple therapy for discharge
- Continue prednisone as ordered
- Assess for home oxygen prior to discharge
- Outpatient follow-up with pulmonary clinic
- Patient stable for transfer, orders for telemetry placed
- Pulmonary team will continue to follow
Assessment
-
Assessment: 64-year-old female with a past medical history of alcohol use disorder, hypertension, hypercholesterolemia, former tobacco smoker, anxiety and seasonal allergies who presents with change in mental status. Neighbors were unable to get
hold of the patient since the night prior and she was found in bed incontinent of urine and speaking incoherently. Per the patient's sister, the patient had called UTI this past week. When she was in the ER, she was moaning and unable to answer
questions. Initially, she was afebrile to 99.9 �F, pulse rate 99, respiratory rate 24, BP 129/87 and saturating 91% on 5 L/min nasal cannula. Initial labs were pertinent for WBC 11.6, sodium 110, potassium 2.6, magnesium 1.4, TSH 0.1, free T41.97,
and urinalysis with +3 ketones; UDS was negative, alcohol level was negative and COVID-19 antigen also negative. Flu swab was negative. CT head showed no acute intracranial abnormality, and CXR also showed no acute cardiopulmonary process. In the
ER she was given 500 cc bolus of NS 0.9%, 100cc of 3% NS, magnesium, potassium and Ativan. She was admitted to the ICU for further care and Food Service Employee services consulted for additional management/recommendations.
03/24, patient was evaluated in the morning, noted to be unresponsive. There was minimal response to sternal rub. She had rattling secretions in her upper airways and was not able to protect her airway requiring emergent intubation and mechanical
ventilation. Patient also noted to have bilateral wheezing on exam.
Chronic conditions [employer]: Hypertension, alcohol use disorder, hypercholesterolemia, anxiety, seasonal allergies
03/30. Patient saturating 93% on 4 L O2. 115/84, not needing any pressors.
WBC count normal at 7.5, hemoglobin 12.7.
Potassium low at 3.3, replaced
Assessment and plan:
#1. Acute respiratory failure due to inability to protect airway.
-Patient emergently intubated and mechanically ventilated (03/24)
-Successfully extubated to high flow nasal cannula 03/25. Currently on nasal cannula
#1a. Hypoxia, ?spurious.
- Pulse ox displayed 86% saturation on high flow nasal cannula. I performed an ABG at the same time which showed a PO2 of 131 and a arterial blood oxygen saturation of 99.3%
- Change pulse ox meter changed to hold wiring and try at different sites to see if we can get a accurate reading
- Now saturating 93% on 4 L supplemental O2.
#2. Acute encephalopathy, suspect metabolic. Resolved. Patient awake, alert and interactive now. [place] to be related to nonconvulsive seizures and possibly? Wernicke's encephalopathy. Patient was admitted for mental status changes felt to be
related to history of alcoholism and hyponatremia for which she was treated with 3% saline. 03/24 morning patient unresponsive. Sodium noted to be rather above 120. A stat blood gas was checked which did not show any evidence of hypercapnia.
-Patient was intubated and mechanically ventilated for airway protection 03/24, extubated 03/25
-Received high-dose thiamine, 500 mg IV every 8 hour for presumed Wernicke's encephalopathy, switched to PO
-Stat CT head performed without any acute changes. f/u MRI negative for acute CVA
-Neurology consult, ordered EEG, patient felt to have nonconvulsive seizure, Keppra initiated per neurology service. Switch to PO
#3. Severe hyponatremia likely due to beer potomania. Admission sodium around 110.
- Patient received 3% normal saline as well as DDAVP/D5 through the hospital course. Off all IV fluids now
- Nephrology service on case, Na normal now.
#4. Bronchospasm, suspect Acute COPD exacerbation with acute hypoxic respiratory failure. Patient quite wheezy on exam 03/24, continues to improve
- Wheezing resolved, switched IV Solu-Medrol to prednisone 30 mg daily for 5 more days
- DC DuoNeb, start Symbicort and Spiriva. Suspect patient has significant underlying COPD with history of heavy smoking.
- CT-PE negative for PE. Lower lobe tree in bud changes suggestive of aspiration. Speech therapy eval and treat. Unasyn started for concern for PNA, await procalcitonin
#4. History of alcoholism.
-Concern for Wernicke's encephalopathy. Received high-dose thiamine. Patient neurologically much improved
-Discontinued phenobarbital in view of encephalopathy. Will aim to minimize sedation.
DVT prophylaxis with Lovenox
Total time spent on this consultation/encounter _42___ minutes which includes review of history, physical exam, medications, laboratory data, personal review of imaging, extensive review of outpatient records, discussion with care team and
respiratory therapy.
Subjective Data
-
Date of Service:
Date of Service: March 30, 2025
Subjective:
Patient comfortably sitting in bed, in no acute distress.
Review of Systems
Genitourinary: Other (All 14 systems reviewed and negative except as stated above in the history of present illness.)
Objective Data
Data Reviewed
Vital Signs / I&O / Oxygen:
Vital Signs
Temp Pulse Resp BP Pulse Ox
98.0 F 86 15 115/84 93
03/30/25 08:00 03/30/25 08:00 03/30/25 08:00 03/30/25 08:00 03/30/25 08:43
Intake and Output
03/29/25 03/30/25 03/31/25
06:59 06:59 06:59
Intake Total 420 / 480 1909
Output Total 400 / 400
Balance 20 / 80 1909
SaO2 [CPAP] 95
SaO2 [A/C] 95
SaO2 93
Nasal Cannula flow liters per 6
minute
Physical Exam
General: Comfortable
HEENT: Normocephalic
Cardiovascular: S1-S2
Respiratory: Clear and Other (No wheezing or rhonchi.)
GI: Non Tender
Neurology: Awake and Alert
Skin: Warm
Labs/Micro/Reports
Lab Data
03/30/25 04:56
03/30/25 04:56
[2025-03-30 11:18] LABS: Procalcitonin < 0.05 ng/ml (0.0-0.25)
[2025-03-30] MEDS: TYLENOL 650 MG PO (11:27)
[2025-03-30] MEDS: MAGIC OR MIRACLE MOUTHWASH 5 ML PO (11:27)
[2025-03-30 11:50] LABS: Glucose - Point of Care 124 mg/dl (70-99)
--- NOTE | 2025-03-30 12:52 | PTCARENOTE ---
no change in patient's assessment. patient is on 3L nasal cannula, walked with PT. is up in chair visiting with family
[2025-03-30 17:00] LABS: Glucose - Point of Care 171 mg/dl (70-99)
[2025-03-30 17:16] LABS: Glucose - Point of Care 150 mg/dl (70-99)
[2025-03-30] MEDS: LOVENOX 40 MG SC (17:52)
--- NOTE | 2025-03-30 19:38 | PTCARENOTE ---
Report given to 4E RN, pt being transported via wheelchair with all her belongings.
--- NOTE | 2025-03-30 20:00 | PTCARENOTE ---
Receive pt from ICU via wheelchair. Pt alert oriented X3, in no distress. Pt assisted to bed. Pt oriented to the room, call ivy within reach. Pt's SpO2=94-99% on 3L NC. VSS (T=97.6, HR=80, JJ=196/80). Pt on NSR on telemonitor. Will keep monoitoring
pt's status.
[2025-03-30] MEDS: KEPPRA 500 MG PO (20:49)
[2025-03-30 21:29] LABS: Glucose - Point of Care 108 mg/dl (70-99)
[2025-03-31] VITALS (7 sets, daily range): BP systolic 108–130; BP diastolic 75–88; PULSE 78
[2025-03-31] MEDS: SPIRIVA RESPIMAT 2.5 MCG 2 PUFF INH (07:50)
[2025-03-31] MEDS: SYMBICORT 160/4.5 MCG INHALER 2 PUFF INH ×2 (07:50→19:25)
--- NOTE | 2025-03-31 08:05 | W.PN.HOSP.TC ---
Today's Communication/Plan
-
Will need ambulatory pulse ox on exertion.
Possible discharge within next 24 h
Assessment / Plan
Assessment / Plan
Impression:
patient is 64-year-old female with history of hypertension, hyperlipidemia, former smoker, alcohol use disorder presented to the hospital with metabolic encephalopathy and severe hyponatremia.� Course complicated with respiratory failure requiring
mechanical ventilation.� Now Extubated.�
Admitted with hyponatremia with required 3% and sodium improved.�
Developed aspiration pneumonia and COPD exacerbation as well, pulmonology following.
Received a course of IV Unasyn.� Currently on prednisone.� Stay on oxygen.�
Observe off antibiotic
Also seen by neurology suspected seizures and started on Keppra as well.
Overall sodium level improved,
Assessment/plan:
Acute Hypoxic respiratory failure:
S/p extubation
Oxygen supplementation, remains on 5 L of oxygen-wean as able
Recurrent hypoxia felt to be related to aspiration but also pulse ox not picking up
Chest x-ray and procalcitonin per pulm
PT OT
Continue to wean oxygen
Pulmonology recommend Observe off antibiotic.
Aspiration pneumonia:
received/Zithromax Unasyn (pulm recommends Observe off antibiotic)
Soft and bite-size diet
Speech therapy eval appreciated
Oxygen supplement
Sinus tachycardia:
Reactive to acute illness
CTA negative for PE
Echocardiogram unremarkable
Abnormal TSH due to steroid-discussed with endocrinology
03/31
improved.
Acute metabolic encephalopathy:
Alcohol versus seizure and or both
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
On AED, Keppra IV 500 mg every 12 hours
MRI of the brain no acute abnormality
Severe hyponatremia:
resolved
Has been on 3% saline and now off
Nephrology on board
Monitor
Suspect COPD exacerbation:
Pulm started on IV steroids and abx--> currently on prednisone 30 mg oral daily
Will need PFT when recover from acute illness
Alcohol use disorder:
Continue MSA protocol
Precedex drip is off
Phenobarbital discontinued
On thiamine and folate
Hypokalemia and hypomagnesia
Replete magnesium and potassium
Abnormal TSH-
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 Can repeat TFT as outpatient
Transaminitis likely secondary to alcohol
- Continue to monitor every so often
CODE STATUS: Full code
DVT prophylaxis: Lovenox
Diet: Soft, bite-size
Total time spent on today's encounter was 55 minutes which included time spent in counseling the patient/family regarding diagnosis and treatment plan as listed above, goals of care, and symptom management. Case was discussed with nursing staff,
specialists, and care coordinators/case management. All labs and imaging personally reviewed by me. Remainder the time spent in detailed review of previous records, lab data, imaging, and other medical provider documentation.
Anticipated Discharge: Within 24 hours
Subjective/Interval History
-
Date of Service: March 31, 2025
Patient seen and examined at bedside, patient downgraded from the ICU.
Denies any chest pain or shortness of breath, no abdominal pain, no nausea, no vomiting, no diarrhea or constipation.
Low magnesium level, replace, physical therapy recommending rehab.
Objective Data
-
Labs:
Laboratory Results
03/31/25
07:42
WBC Pending
Hgb Pending
Hct Pending
Plt Count Pending
Sodium Pending
Potassium Pending
Chloride Pending
Carbon Dioxide Pending
BUN Pending
Creatinine Pending
Glucose Pending
Calcium Pending
Vital Signs:
Vital Signs
Temp Pulse Resp BP Pulse Ox
97.6 F 78 16 128/83 91
03/31/25 03:00 03/31/25 07:55 03/31/25 07:55 03/31/25 03:00 03/31/25 07:55
I&O
03/30/25 03/31/25 04/01/25
06:59 06:59 06:59
Intake Total 1909
Balance 1909
Physical Exam
-
General: Well Developed, Well Nourished, No Apparent Distress and Comfortable
HEENT: Normocephalic, Atraumatic, Moist Mucous Membranes, No Ptosis, PERRLA and Nose Appears Normal
Respiratory: Clear to Auscultation and Non Labored Respirations
Cardiac: Regular Rhythm and S1/S2
Breast: Deferred by me
GI: Soft, Nontender, Nondistended and Normal Bowel Sounds
Genito-urinary: No Costovertebral Tender
Musculoskeletal: No Clubbing, No Cyanosis and No Edema
Skin: Warm
Neuro: Awake, Alert, Oriented, AO x 3 and No Motor Deficits
Psych: Calm
Data Reviewed
-
Diagnostic Radiology: Image personally visualized and interpreted and Report Reviewed by me
CT Scan: Image personally visualized and interpreted and Report Reviewed by me
Ultrasound: Image personally visualized and interpreted and Report Reviewed by me
MRI: Image personally visualized and interpreted and Report Reviewed by me
Medical Tests (Nuc Med, Echo etc): Image personally visualized and interpreted and Report Reviewed by me
Labs: Labs Reviewed by me
Old Records: Reviewed
[2025-03-31 08:10] LABS: Glucose - Point of Care 78 mg/dl (70-99)
[2025-03-31 08:25] LABS: % Basophils 0.9 % (0-2); % Eosinophils 0.5 % (0-6); % Immature Granulocytes 2.1 % (0-0.5); % Lymphocytes 27.3 % (20.5-51.1); % Monocytes 15.6 % (1.7-9.3); % Neutrophils 53.6 % (42.2-75.2); Absolute Basophils 0.1 10^3/uL (0-0.2); Absolute Immature Granulocytes 0.2 10^3/uL (0-0.05); Absolute Lymphocytes 2.2 10^3/uL (1.2-3.4); Absolute Monocytes 1.3 10^3/uL (0.1-0.6); Absolute Neutrophils 4.3 10^3/uL (1.4-6.5); Hemoglobin 13.6 g/dL (12.0-16.0); Mean Corp Hgb Conc. 34.9 g/dL (33.0-37.0); Mean Corpuscular Hgb 36.5 pg (27.0-31.0); Mean Corpuscular Volume 104.6 fL (81.0-99.0); Mean Platelet Volume 9.1 fL (7.4-10.4); Nucleated Red Blood Cells % 0 %; Platelet Count 345 10^3/uL (130-400); Red Blood Cell Count 3.73 10^6/uL (4.20-5.40); Red Cell Dist. Width 11.8 % (11.5-14.5)
[2025-03-31] MEDS: FOLVITE 1 MG PO (08:36)
[2025-03-31] MEDS: KEPPRA 500 MG PO ×2 (08:36→20:38)
[2025-03-31] MEDS: DELTASONE 30 MG PO (08:36)
[2025-03-31] MEDS: VITAMIN B1 200 MG PO (08:36)
--- NOTE | 2025-03-31 09:28 | W.PN.PUL.V3 ---
Today's Communication / Plan
-
Wean oxygen
Observe off antibiotics
Prednisone taper
Assess discharge supplemental oxygen needs
Flory per neurology
Assessment
-
Assessment: 64-year-old female with a past medical history of alcohol use disorder, hypertension, hypercholesterolemia, former tobacco smoker, anxiety and seasonal allergies who presents with change in mental status. Neighbors were unable to get
hold of the patient since the night prior and she was found in bed incontinent of urine and speaking incoherently. Per the patient's sister, the patient had called UTI this past week. When she was in the ER, she was moaning and unable to answer
questions. Initially, she was afebrile to 99.9 �F, pulse rate 99, respiratory rate 24, BP 129/87 and saturating 91% on 5 L/min nasal cannula. Initial labs were pertinent for WBC 11.6, sodium 110, potassium 2.6, magnesium 1.4, TSH 0.1, free T41.97,
and urinalysis with +3 ketones; UDS was negative, alcohol level was negative and COVID-19 antigen also negative. Flu swab was negative. CT head showed no acute intracranial abnormality, and CXR also showed no acute cardiopulmonary process. In the
ER she was given 500 cc bolus of NS 0.9%, 100cc of 3% NS, magnesium, potassium and Ativan. She was admitted to the ICU for further care and Investigator Operator services consulted for additional management/recommendations.
03/24, patient was evaluated in the morning, noted to be unresponsive. There was minimal response to sternal rub. She had rattling secretions in her upper airways and was not able to protect her airway requiring emergent intubation and mechanical
ventilation. Patient also noted to have bilateral wheezing on exam.
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
03/30. Patient saturating 93% on 4 L O2. 115/84, not needing any pressors.
WBC count normal at 7.5, hemoglobin 12.7.
Potassium low at 3.3, replaced
Plan:
Respiratory status slowly improving
Tolerated extubation
Wean FiO2-assess discharge supplemental oxygen needs prior to discharge
There was a discrepancy between ABG-PO2 and pulse oximetry
Patient will prefer not to have oxygen at time of discharge-explained she might need to temporarily and this can be weaned off in the outpatient setting
Solu-Medrol and now prednisone continues with taper
Symbicort and Spiriva initiated
Nebulizers as needed
Note CT chest negative for PE but tree-in-bud changes suggesting of aspiration
Aspiration precautions
Speech therapy following
Toxic metabolic encephalopathy improving
Serum sodium followed closely and improving-had received 3% normal saline as well as DDAVP
Nephrology following
Cultures reviewed
Finish finite course of IV Unasyn
Alcohol use disorder
Thiamine provided neurologic status improved
Monitor for long-term brain damage including Warnicke's encephalopathy/Korsakoff's
Neurology was consulted
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
DVT prophylaxis with Lovenox
Nutrition
Early mobilization/physical therapy
Outpatient pulm evaluation
Subjective Data
-
Date of Service:
Date of Service: March 31, 2025
Chief Complaint: Pulmonary Follow Up and Dyspnea Follow Up
Subjective:
States that she feels better, 'can I go home', no chest pain, productive cough or abdominal pain, still has significant dyspnea on exertion
Review of Systems
General: Fever (Per HPI)
Objective Data
Data Reviewed
Vital Signs / I&O:
Vital Signs
Temp Pulse Resp BP Pulse Ox
97.6 F 85 16 116/80 98
03/31/25 07:55 03/31/25 07:55 03/31/25 07:55 03/31/25 07:55 03/31/25 07:55
Intake and Output
03/30/25 03/31/25 04/01/25
06:59 06:59 06:59
Intake Total 1910 / 1910
Balance 1909
SaO2: 98
Nasal Cannula flow liters per minute: 3
Physical Exam
General: Respiratory Distress (n) and Comfortable
HEENT: Normocephalic
Cardiovascular: Regular Rhythm
Respiratory: Clear (Prolonged expiratory time, diminished breath sounds), Crackles (Rare basilar), Non-Labored Respirations, Accessory Resp Muscle Use (n), Stridor (n) and Other (No wheezing or rhonchi.)
GI: Soft, Non Distended and Non Tender
Neurology: Awake, Alert and No Motor Deficits
Skin: Warm, Good Color and Cyanosis (n)
Labs/Micro/Reports
Lab Data
03/31/25 07:42
[2025-03-31] MEDS: TENORMIN 100 MG PO (10:00)
[2025-03-31 10:18] LABS: Blood Urea Nitrogen 10 mg/dl (7-17); Calcium 9.7 mg/dl (8.4-10.2); Carbon Dioxide 28 mmol/L (22-30); Chloride 100 mmol/L (98-107); Estimated Creatinine Clearance 75 ml/min; Glucose 136 mg/dl (70-99); Magnesium 1.1 mg/dl (1.6-2.3); Potassium 3.9 mmol/L (3.5-5.1); Sodium 136 mmol/L (135-145); eGFR > 60.00
[2025-03-31] MEDS: MAGNESIUM SULFATE 50 IV (11:25)
[2025-03-31 12:04] LABS: Glucose - Point of Care 106 mg/dl (70-99)
--- NOTE | 2025-03-31 15:35 | PTOTSP ---
Speech Language Pathology
Pt seen for dysphagia tx. Pt reported significant pain from lingual ulcer, limiting ability to eat. She denied any true chewing or swallowing issues. Seen with regular solids and thin liquids. Adequate mastication, bolus formation, and A-P
transit noted with no oral residue. She complained of typical pain with tongue rubbing against teeth (noted with all consistencies). No overt signs of aspiration.
Recommend:
(1) Upgrade to regular solids/thin liquids
(2) General aspiration precautions
(3) Meds as tolerated
(4) COVER INSPECTOR to sign off. Please reconsult as indicated
--- NOTE | 2025-03-31 15:36 | CM ---
Chart reviewed. Per hospitalist, patient will be ready for d/c tomorrow
Therapy rec SNF. Discussed w/ patient at bedside, patient declines SNF, prefers to go home w/ PT. Patient inquired about a RW, she does not have one at home. TT PT, Marie, regarding RW. Will trial patient w/ RW today
CM discussed [facility] for support, patient declined need for support/resources.
Patient agreeable to [facility], referral placed in [facility] for review
Home O2 assessment completed today. Patient requires 2L. Script sent to [facility].
Plan: Home w/ [facility]. PT will trial patient w/ RW.
Home O2 supplied by [employer]
--- NOTE | 2025-03-31 16:14 | VNURNOTE ---
Home Health Liaison met with patient at bedside to discuss [facility] nurse/therapy, visits, schedule and homebound status. Patient is agreeable and understands that visits at home will be 2-3 x per week to assess and teach medical management. Patient is
aware that [facility] will contact them for start of care in 1-2 days after discharge from . New home 02 w/[employer]. New rolling walker to be provided by: [employer]. JAZMYNE aware.
[facility] referral updated in [facility] Port.
[2025-03-31 17:16] LABS: Glucose - Point of Care 105 mg/dl (70-99)
[2025-03-31] MEDS: LOVENOX 40 MG SC (18:23)
[2025-04-01 00:28] LABS: Glucose - Point of Care 74 mg/dl (70-99)
[2025-04-01 03:20] VITALS: BP 118/74
--- NOTE | 2025-04-01 07:55 | W.PN.PUL.V3 ---
Today's Communication / Plan
-
Wean oxygen
Physical therapy
Assess for discharge supplemental oxygen needs
Outpatient pulmonary follow-up
Assessment
-
Assessment: 64-year-old female with a past medical history of alcohol use disorder, hypertension, hypercholesterolemia, former tobacco smoker, anxiety and seasonal allergies who presents with change in mental status. Neighbors were unable to get
hold of the patient since the night prior and she was found in bed incontinent of urine and speaking incoherently. Per the patient's sister, the patient had called UTI this past week. When she was in the ER, she was moaning and unable to answer
questions. Initially, she was afebrile to 99.9 �F, pulse rate 99, respiratory rate 24, BP 129/87 and saturating 91% on 5 L/min nasal cannula. Initial labs were pertinent for WBC 11.6, sodium 110, potassium 2.6, magnesium 1.4, TSH 0.1, free T41.97,
and urinalysis with +3 ketones; UDS was negative, alcohol level was negative and COVID-19 antigen also negative. Flu swab was negative. CT head showed no acute intracranial abnormality, and CXR also showed no acute cardiopulmonary process. In the
ER she was given 500 cc bolus of NS 0.9%, 100cc of 3% NS, magnesium, potassium and Ativan. She was admitted to the ICU for further care and Dry Plasterer Helper services consulted for additional management/recommendations.
03/24, patient was evaluated in the morning, noted to be unresponsive. There was minimal response to sternal rub. She had rattling secretions in her upper airways and was not able to protect her airway requiring emergent intubation and mechanical
ventilation. Patient also noted to have bilateral wheezing on exam.
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
03/30. Patient saturating 93% on 4 L O2. 115/84, not needing any pressors.
WBC count normal at 7.5, hemoglobin 12.7.
Potassium low at 3.3, replaced
Plan:
Respiratory status continues to slowly improve
Tolerated extubation
Wean FiO2-assess discharge supplemental oxygen needs prior to discharge-currently on 3 L-check rest and exercise oximetry and arrange for home oxygen if needed
There was a discrepancy between ABG-PO2 and pulse oximetry
Patient will prefer not to have oxygen at time of discharge-explained she would likely need it temporarily and this can be weaned off in the outpatient setting-she is agreeable
Prednisone taper
Symbicort and Spiriva initiated
Nebulizers as needed
Note CT chest negative for PE but tree-in-bud changes suggesting of aspiration
Aspiration precautions continues
Speech therapy following
Toxic metabolic encephalopathy significantly improved
Serum sodium followed closely and improving-had received 3% normal saline as well as DDAVP
Nephrology following
Cultures reviewed
Status post a course of Unasyn
Alcohol use disorder
Thiamine provided neurologic status improved
Monitor for long-term brain damage including Warnicke's encephalopathy/Korsakoff's
Neurology was consulted
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
DVT prophylaxis with Lovenox
Nutrition
Early mobilization/physical therapy
Outpatient pulm evaluation recommended
Subjective Data
-
Date of Service:
Date of Service: April 01, 2025
Chief Complaint: Pulmonary Follow Up and Dyspnea Follow Up
Subjective:
Anxious to be discharged, no complaints of worsening shortness of breath, still on 3 L, no chest pain or abdominal pain
Review of Systems
General: Other (Per HPI)
Objective Data
Data Reviewed
Vital Signs / I&O:
Vital Signs
Temp Pulse Resp BP Pulse Ox
97.9 F 62 16 118/74 96
04/01/25 03:20 04/01/25 03:20 04/01/25 03:20 04/01/25 03:20 04/01/25 03:20
Intake and Output
03/31/25 04/01/25 04/02/25
06:59 06:59 06:59
Intake Total 240 / 240
Balance 240 / 240
SaO2: 96
Nasal Cannula flow liters per minute: 3
Physical Exam
General: Respiratory Distress (n) and Comfortable
HEENT: Normocephalic
Cardiovascular: Regular Rhythm
Respiratory: Clear (Prolonged expiratory time, diminished breath sounds), Crackles (Rare basilar), Non-Labored Respirations, Accessory Resp Muscle Use (n), Stridor (n) and Other (No wheezing or rhonchi.)
GI: Soft, Non Distended and Non Tender
Neurology: Awake, Alert and No Motor Deficits
Skin: Warm, Good Color and Cyanosis (n)
Labs/Micro/Reports
Lab Data
03/31/25 07:42
03/31/25 09:41
[2025-04-01] MEDS: DELTASONE 30 MG PO (08:15)
[2025-04-01] MEDS: TENORMIN PO (08:15)
[2025-04-01] MEDS: KEPPRA 500 MG PO (08:15)
[2025-04-01] MEDS: FOLVITE 1 MG PO (08:16)
[2025-04-01] MEDS: VITAMIN B1 200 MG PO (08:16)
[2025-04-01 08:17] LABS: Glucose - Point of Care 81 mg/dl (70-99)
[2025-04-01] MEDS: SYMBICORT 160/4.5 MCG INHALER 2 PUFF INH (08:21)
[2025-04-01] MEDS: SPIRIVA RESPIMAT 2.5 MCG 2 PUFF INH (08:21)
[2025-04-01 08:31] VITALS: BP 109/80
[2025-04-01 10:29] VITALS: BP 115/83; PULSE 88; O2SAT 91
--- NOTE | 2025-04-01 11:02 | W.PN.HOSP.TC ---
Today's Communication/Plan
-
Discharge home today on oxygen
Assessment / Plan
Assessment / Plan
Impression:
patient is 64-year-old female with history of hypertension, hyperlipidemia, former smoker, alcohol use disorder presented to the hospital with metabolic encephalopathy and severe hyponatremia.� Course complicated with respiratory failure requiring
mechanical ventilation.� Now Extubated.�
Admitted with hyponatremia with required 3% and sodium improved.�
Developed aspiration pneumonia and COPD exacerbation as well, pulmonology following.
Received a course of IV Unasyn.� Currently on prednisone.� Stay on oxygen.�
Observe off antibiotic
Also seen by neurology suspected seizures and started on Keppra as well.
Overall sodium level improved,
Cleared for discharge home on oxygen.
Assessment/plan:
Acute Hypoxic respiratory failure:
S/p extubation
Oxygen supplementation, remains on 5 L of oxygen-wean as able
Recurrent hypoxia felt to be related to aspiration but also pulse ox not picking up
Chest x-ray and procalcitonin per pulm
PT OT
Continue to wean oxygen
Pulmonology recommend Observe off antibiotic.
04/01
Will be discharged home today on oxygen
Aspiration pneumonia:
received/Zithromax Unasyn (pulm recommends Observe off antibiotic)
Soft and bite-size diet
Speech therapy eval appreciated
Oxygen supplement
Sinus tachycardia:
Reactive to acute illness
CTA negative for PE
Echocardiogram unremarkable
Abnormal TSH due to steroid-discussed with endocrinology
03/31
improved.
Acute metabolic encephalopathy:
Alcohol versus seizure and or both
Neurology consulted by tutoring assistant
On AED, Keppra IV 500 mg every 12 hours
MRI of the brain no acute abnormality
Severe hyponatremia:
resolved
Has been on 3% saline and now off
Nephrology on board
Monitor
Suspect COPD exacerbation:
Pulm started on IV steroids and abx--> currently on prednisone 30 mg oral daily
Will need PFT when recover from acute illness
Alcohol use disorder:
Continue MSA protocol
Precedex drip is off
Phenobarbital discontinued
On thiamine and folate
Hypokalemia and hypomagnesia
Replete magnesium and potassium
Abnormal TSH-
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 Can repeat TFT as outpatient
Transaminitis likely secondary to alcohol
- Continue to monitor every so often
CODE STATUS: Full code
DVT prophylaxis: Lovenox
Diet: regular
Total time spent on today's encounter was 55 minutes which included time spent in counseling the patient/family regarding diagnosis and treatment plan as listed above, goals of care, and symptom management. Case was discussed with nursing staff,
specialists, and care coordinators/case management. All labs and imaging personally reviewed by me. Remainder the time spent in detailed review of previous records, lab data, imaging, and other medical provider documentation.
Anticipated Discharge: Today
Subjective/Interval History
-
Date of Service: April 01, 2025
Patient seen and examined at bedside, denies any chest pain or shortness of breath, no abdominal pain, no nausea, no vomiting, no diarrhea or constipation.
Will be discharged home on oxygen.
Objective Data
-
Vital Signs:
Vital Signs
Temp Pulse Resp BP Pulse Ox
97.5 F 77 20 109/80 93
04/01/25 08:31 04/01/25 08:31 04/01/25 08:31 04/01/25 08:31 04/01/25 08:31
I&O
03/31/25 04/01/25 04/02/25
06:59 06:59 06:59
Intake Total 240 / 240
Balance 240 / 240
Physical Exam
-
General: Well Developed, Well Nourished, No Apparent Distress and Comfortable
HEENT: Normocephalic, Atraumatic, Moist Mucous Membranes, No Ptosis, PERRLA and Nose Appears Normal
Respiratory: Clear to Auscultation and Non Labored Respirations
Cardiac: Regular Rhythm and S1/S2
Breast: Deferred by me
GI: Soft, Nontender, Nondistended and Normal Bowel Sounds
Genito-urinary: No Costovertebral Tender
Musculoskeletal: No Clubbing, No Cyanosis and No Edema
Skin: Warm
Neuro: Awake, Alert, Oriented, AO x 3 and No Motor Deficits
Psych: Calm
Data Reviewed
-
Diagnostic Radiology: Image personally visualized and interpreted and Report Reviewed by me
CT Scan: Image personally visualized and interpreted and Report Reviewed by me
Ultrasound: Image personally visualized and interpreted and Report Reviewed by me
MRI: Image personally visualized and interpreted and Report Reviewed by me
Medical Tests (Nuc Med, Echo etc): Image personally visualized and interpreted and Report Reviewed by me
Labs: Labs Reviewed by me
Old Records: Reviewed
--- NOTE | 2025-04-01 11:03 | CM ---
Addendum entered by Rafy Nuñez 04/01/25 11:41:
Faxed documentation to [facility]
Original Note:
Patient stable for d/c today
Patient will need home O2 and RW. Therapy unable to issue RW due to insurance type
Spoke w/ Sofy/[facility], confirmed walkers are available and one can be delivered to patient's room along w/ portable O2. Concentrator will be delivered to patient's home.
Hospitalist to complete updated note that indicates home O2 needs and need for walker
CM will fax O2 and RW script w/ updated documentation once made available
[facility] accepted for services
Plan: Home today w/ [facility]
Home O2 and RW provided by [facility]
--- NOTE | 2025-04-01 11:04 | W.PN.UPDATE ---
Update Note
Progress Note Update
Patient will be discharged home on oxygen secondary to underlying COPD, patient will need to follow-up with pulmonology as outpatient for pulmonary function testing.
Patient will be discharged home on a walker for diagnosis of ambulatory dysfunction.
--- NOTE | 2025-04-01 11:05 | W.DCSUMMARY ---
Discharge Summary
Discharge Data
Date of Admission: 03/22/25
Date of Discharge: 04/01/25
-
Pending Results: No
Hospital Course
Hospital course
patient is 64-year-old female with history of hypertension, hyperlipidemia, former smoker, alcohol use disorder presented to the hospital with metabolic encephalopathy and severe hyponatremia.� Course complicated with respiratory failure requiring
mechanical ventilation.� Now Extubated.�
Admitted with hyponatremia with required 3% and sodium improved.�
Developed aspiration pneumonia and COPD exacerbation as well, pulmonology following.
Received a course of IV Unasyn.� Currently on prednisone.� Stay on oxygen.�
Observe off antibiotic
Also seen by neurology suspected seizures and started on Keppra as well.
Overall sodium level improved,
Cleared for discharge home on oxygen.
During hospitalization patient was treated from the following
Acute Hypoxic respiratory failure:
S/p extubation
Oxygen supplementation, remains on 5 L of oxygen-wean as able
Recurrent hypoxia felt to be related to aspiration but also pulse ox not picking up
Chest x-ray and procalcitonin per pulm
PT OT
Continue to wean oxygen
Pulmonology recommend Observe off antibiotic.
04/01
Will be discharged home today on oxygen
Aspiration pneumonia:
received/Zithromax Unasyn (pulm recommends Observe off antibiotic)
Soft and bite-size diet
Speech therapy eval appreciated
Oxygen supplement
Sinus tachycardia:
Reactive to acute illness
CTA negative for PE
Echocardiogram unremarkable
Abnormal TSH due to steroid-discussed with endocrinology
03/31
improved.
Acute metabolic encephalopathy:
Alcohol versus seizure and or both
Neurology consulted by [employer] specialist
On AED, Keppra IV 500 mg every 12 hours
MRI of the brain no acute abnormality
Severe hyponatremia:
resolved
Has been on 3% saline and now off
Nephrology on board
Monitor
Suspect COPD exacerbation:
Pulm started on IV steroids and abx--> currently on prednisone 30 mg oral daily
Will need PFT when recover from acute illness
Alcohol use disorder:
Continue MSA protocol
Precedex drip is off
Phenobarbital discontinued
On thiamine and folate
Hypokalemia and hypomagnesia
Replete magnesium and potassium
Abnormal TSH-
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 Can repeat TFT as outpatient
Transaminitis likely secondary to alcohol
- Continue to monitor every so often
CODE STATUS: Full code
DVT prophylaxis: Lovenox
Diet: regular
Total time spent on today's encounter was 40 minutes which included time spent in counseling the patient/family regarding diagnosis and treatment plan as listed above, goals of care, and symptom management. Case was discussed with nursing staff,
specialists, and care coordinators/case management. All labs and imaging personally reviewed by me. Remainder the time spent in detailed review of previous records, lab data, imaging, and other medical provider documentation.
Anticipated Discharge: Today
Discharge Plan
-
Patient Disposition: Home with Home Care
Discharge Diagnosis/Procedures: Acute hypoxic respiratory failure.
Severe hyponatremia.
Aspiration pneumonia.
Sinus tachycardia.
Acute metabolic encephalopathy
Alcohol use disorder.
Elevated liver enzyme
Diet: As tolerated
Activity: With assistance and As tolerated
Other Services: PT and OT
Referrals:
Charity Falcon MD [Active] -
Khai Thomas MD [Active] - in two to four weeks (full PFTs on day of office visit)
UNKNOWN - PT NOT,INTERVIEWE [Family Provider] -
Prescriptions:
New
levetiracetam 500 mg Tablet
500 mg PO BID 30 Days Qty: 60 0RF
folic acid 1 mg Tablet
1 mg PO DAILY Qty: 0 0RF
Spiriva Respimat 2.5 mcg/actuation Mist
2 puff inhalation R DAILY Qty: 9 0RF
budesonide-formoterol [Symbicort] 160-4.5 mcg/actuation Hfa Aerosol Inhaler
2 puff inhalation R BID Qty: 10.2 0RF
albuterol sulfate 90 mcg/actuation HFA aerosol inhaler
2 puff inhalation Q6H PRN (Reason: shortness of breath or wheezing) Qty: 6.7 0RF
prednisone 10 mg tablet
10 mg PO DIRECTED Qty: 9 0RF
Rx Instructions:
Take 2 tablets daily for 3 days then 1 tablet daily for 3 days then stop
thiamine HCl (vitamin B1) 100 mg tablet
100 mg PO DAILY Qty: 30 0RF
Continued
paroxetine HCl 10 mg tablet
10 mg PO DAILY
simvastatin 40 mg tablet
40 mg PO QPM
atenolol 50 mg tablet
100 mg PO DAILY
Discontinued
ondansetron HCl 8 mg Tablet
8 mg PO Q8H PRN (Reason: nausea)
hydrochlorothiazide 25 mg tablet
25 mg PO DAILY
Discharge Orders:
Discharge Patient (As Directed); Ordered 04/01/25
Ordered By: Giuliano Mireles
Discharge Date and Time
Print Language: HEBREW
[2025-04-01 12:04] LABS: Glucose - Point of Care 121 mg/dl (70-99)
[2025-04-01 12:11] VITALS: BP 137/98
== END 2025-04-01 14:40 | disposition home health service (06) | DRG 640 ==
LOC: 4 EAST ACU 19:27
PROVIDERS: Hospitalist; Internal Medicine; Nurse Practitioner Family; Nurse Practitioner Primary Care; Specialist; ADMITTING PHYSICIAN Hospitalist; ATTENDING PHYSICIAN General Practice; CONSULT PHYSICIAN Internal Medicine Critical Care Medicine; CONSULT PHYSICIAN Internal Medicine Nephrology; EMERGENCY PHYSICIAN Emergency Medicine; OTHER PHYSICIAN Psychiatry & Neurology Neurology
PROC: 5A1935Z Respiratory Ventilation, Less than 24 Consecutive Hours (ICD-10-PCS; 2025-03-24)
PROC: 0BH17EZ Insertion of Endotracheal Airway into Trachea, Via Natural or Artificial Opening (ICD-10-PCS; 2025-03-24)
PROC: 5A0945A Assistance with Respiratory Ventilation, 24-96 Consecutive Hours, High Flow/Velocity Cannula (ICD-10-PCS; 2025-03-25)
PROC: 0BP1XDZ Removal of Intraluminal Device from Trachea, External Approach (ICD-10-PCS; 2025-03-25)
DX: E87.1 Hypo-osmolality and hyponatremia (principal); G92.8 Other toxic encephalopathy; J69.0 Pneumonitis due to inhalation of food and vomit; J96.01 Acute respiratory failure with hypoxia; E51.2 Wernicke's encephalopathy; J44.1 Chronic obstructive pulmonary disease with (acute) exacerbation; R47.01 Aphasia; E23.3 Hypothalamic dysfunction, not elsewhere classified; E87.6 Hypokalemia; E83.42 Hypomagnesemia; E78.00 Pure hypercholesterolemia, unspecified; E78.49 Other hyperlipidemia; I10 Essential (primary) hypertension; E05.90 Thyrotoxicosis, unspecified without thyrotoxic crisis or storm; R74.01 Elevation of levels of liver transaminase levels; D69.6 Thrombocytopenia, unspecified; F41.1 Generalized anxiety disorder; J30.2 Other seasonal allergic rhinitis; T38.0X5A Adverse effect of glucocorticoids and synthetic analogues, initial encounter; R13.14 Dysphagia, pharyngoesophageal phase; E88.89 Other specified metabolic disorders; R74.8 Abnormal levels of other serum enzymes; J98.01 Acute bronchospasm; R32 Unspecified urinary incontinence; F10.20 Alcohol dependence, uncomplicated; Z60.2 Problems related to living alone; Z87.440 Personal history of urinary (tract) infections; Z87.891 Personal history of nicotine dependence; Z11.52 Encounter for screening for COVID-19; Z82.5 Family history of asthma and other chronic lower respiratory diseases; Z80.42 Family history of malignant neoplasm of prostate; Z82.49 Family history of ischemic heart disease and other diseases of the circulatory system
CPT/HCPCS: 36600; 51701; 70450; 70551; 71045; 71275; 74018; 80048; 80053; 80306; 81003; 81015; 82077; 82140; 82248; 82533; 82550; 82553; 82570; 82805; 82962; 83036; 83735; 83935; 84100; 84145; 84300; 84439; 84443; 84478; 84550; 85025; 85027; 85610; 85730; 87070; 87205; 87502; 87811; 92526; 92610; 93005; 93306; 94002; 94003; 94640; 95816; 96365; 96366; 96375; 97116; 97163; 97167; 97530; 97535; 99291; J2597; Q9950; Q9967

== ENCOUNTER → 2025-06-10 13:49 | Outpatient (REF) | payer OTHER, SELFPAY | LOC: HWRAD 13:49 | PROVIDERS: ATTENDING PHYSICIAN Hospitalist | DX: R79.89 Other specified abnormal findings of blood chemistry (principal) | CPT/HCPCS: 76536 ==